=== PATIENT | male | born 1945 | race African-American/Black ===

== ENCOUNTER 2016-09-22 17:29 | Inpatient (IN) | payer OTHER ==
[2016-09-22 17:54] VITALS: BMI 28.8
[2016-09-22] MEDS ORDERED: MAGNESIUM SULF 50% (8.12 MEQ/2 ML-1 GM VIAL) IVPB ONE (18:19)
[2016-09-22] MEDS ORDERED: ALBUTEROL SO4 2.5/IPRATROPIUM 0.5 INH SOL 3 ML VIAL.NEB. NEB ONE ×2 (18:19→18:36)
[2016-09-22] MEDS ORDERED: methylPREDNISolone NA SUCC 125 MG/2 ML VIAL IVPB ONE (18:19)
[2016-09-22 18:20] LABS: MCH 31.5 pg (25.7-33.7); MCHC 32.5 g/dl (32.0-35.9); MEAN CELL VOLUME 96.8 fl (80-96); MEAN PLT VOLUME 10.3 fl (7.5-11.1); RDW 14.2 % (11.9-15.9); WHITE BLOOD COUNT 4.8 K/mm3 (4.0-10.0)
[2016-09-22] MEDS ORDERED: methylPREDNISolone NA SUCC 125 MG/2 ML VIAL ONE (18:24)
[2016-09-22] MEDS ORDERED: MAGNESIUM SULF 50% (8.12 MEQ/2 ML-1 GM VIAL) ONE (18:24)
--- NOTE | 2016-09-22 18:27 | PDOC ---
History of Present Illness <Wilton Mooney - Last Filed: 09/22/16 18:56> - General History Source: Patient Exam Limitations: No Limitations - History of Present Illness Initial Comments: 09/22/16 18:55 The patient is a 71 year old male, resident of [facility], with a significant past medical history of afib (on Coumadin), CHF, COPD (on home O2 2- 3 L), HTN, HLD, pulmonary valve disorder, CVA, seizure, GI bleed, DVT, and anemia, who presents to the ER with gradually worsening shortness of breath, wheezing, and productive cough for several days. Patient says he has been coughing and bringing up yellow phlegm. He says he has noticed he recently needed to increase his oxygen dosage to higher than 2-3L. Patient had a Chest XR done on 09/21/16 which documented that he has a moderate enlarged heart, possible pachy bilateral perihilar increased markings. Patient reports he was diagnosed with pneumonia at his halfway and has been taking Azithromycin for the infection. Patient reports also noticing bilateral foot edema. Denies nausea, vomiting, abdominal pain Denies chest pain, heart palpitation Denies fever PCP: Dr. Hein <Steph Espinal - Last Filed: 09/22/16 19:03> <Teresa Yao - Last Filed: 09/23/16 00:42> - General Chief Complaint: Respiratory Distress Stated Complaint: RESPIRATORY DISTRESS Time Seen by Provider: 09/22/16 17:52 Past History - Past Medical History Anemia: Yes Asthma: No Cancer: No Cardiac Disorders: Yes (h/o dvt; pulmonary valve disorder) CVA: Yes (04, 05 and 2 in 06 with residual- weakness right side) COPD: Yes CHF: Yes DVT: Yes Dementia: No Diabetes: Yes GI Disorders: Yes (gi bleed, GERD) Disorders: No HTN: Yes Hypercholesterolemia: Yes Liver Disease: No Suicide Attempt (Hx): No Seizures: Yes Thyroid Disease: No - Surgical History Abdominal Surgery: No Appendectomy: No Cardiac Surgery: No Cholecystectomy: No Lung Surgery: No Neurologic Surgery: No Orthopedic Surgery: Yes (LT ANKLE SURGERY) - Immunization History Td Vaccination: Yes TDAP Vaccination: Yes Immunization Up to Date: Yes - Psycho/Social/Smoking Cessation Hx Anxiety: No Suicidal Ideation: No Smoking Status: No Smoking History: Former smoker Years of Tobacco Use: 30 Have you smoked in the past 12 months: No Number of Cigarettes Smoked Daily: 0 If you are a former smoker, when did you quit?: 2002 Information on smoking cessation initiated: No Hx Alcohol Use: No Drug/Substance Use Hx: No Substance Use Type: None Hx Substance Use Treatment: No <Wilton Mooney - Last Filed: 09/22/16 18:56> <Steph Espinal - Last Filed: 09/22/16 19:03> <Teresa Yao - Last Filed: 09/23/16 00:42> - Past Medical History Allergies/Adverse Reactions: Allergies Allergy/AdvReac Type Severity Reaction Status Date / Time No Known Allergies Allergy Verified 09/22/16 17:54 Home Medications: Ambulatory Orders Acetaminophen [Tylenol] 650 mg PO Q8H PRN 07/13/14 Atorvastatin Ca [Lipitor] 40 mg PO HS 07/13/14 Levetiracetam [Keppra -] 1,000 mg PO BID 07/13/14 Polyethylene Glycol 3350 [Miralax 119 gm Btl -] 17 gm PO HS 07/13/14 Sotalol HCl [Sotalol] 80 mg PO BID 07/13/14 Aclidinium [place] [Tudorza -] 1 inh PO BID 07/20/15 Docusate Sodium [Colace -] 300 mg PO HS 07/20/15 Tamsulosin HCl [Flomax -] 0.4 mg PO DAILY@0830 cap.er.24h 07/26/15 Albuterol 0.083% Nebulizer Lyubov [Ventolin 0.083% Nebulizer Soln -] 1 neb NEB Q4H 08/17/15 Flovent Diskus 44 mcg IH Q12H 08/17/15 Oxycodone HCl 5 mg PO Q8H PRN 08/17/15 Albuterol 0.083% Nebulizer Lyubov [Ventolin 0.083% Nebulizer Soln -] 1 amp NEB QIDR amp 08/20/15 Aspirin Coated [Ecotrin -] 81 mg PO DAILY tablet.ec 08/20/15 Furosemide [Lasix -] 40 mg PO DAILY tablet 08/20/15 Loratadine [Claritin] 10 mg PO DAILY 09/22/16 Warfarin Na [Coumadin -] 7.5 mg PO DAILY@1800 06/17/17 Review of Systems - Review of Systems Able to Perform ROS?: Yes Comments:: 09/22/16 18:55 CONSTITUTIONAL: No reported: Fever, Chills, Diaphoresis, Generalized Weakness, Malaise, Loss of Appetite HEENT: No reported: Rhinorrhea, Nasal Congestion, Throat Pain, Throat Swelling, Difficulty Swallowing, Mouth Swelling, Ear Pain, Eye Pain, Visual Changes CARDIOVASCULAR: No reported: Chest Pain, Syncope, Palpitations, Irregular Heart Rate, Lightheadedness, Peripheral Edema RESPIRATORY: Reported: (+) cough, (+) shortness of breath No reported: SOB with Exertion, Stridor, Hemoptysis GASTROINTESTINAL: No reported: Abdominal pain, Abdominal Distension, Nausea, Vomiting, Diarrhea, Constipation, Melena, Hematochezia GENITOURINARY: No reported: Dysuria, Frequency, Urgency, Hesitancy, Flank Pain, Genital Pain MUSCULOSKELETAL: No reported: Myalgia, Arthralgia, Joint Swelling, Back pain, Neck Pain SKIN: No reported: Rash, Itching, Pallor HEMEATOLOGIC/IMMUNOLOGIC: No reported: Easy Bleeding, Easy Bruising, Lymphadenopathy, Frequent infections ENDOCRINE: No reported: Unexplained Weight Gain, Unexplained Weight Loss, Heat Intolerance , Cold Intolerance NEUROLOGIC: No reported: Headache, Focal Weakness, Paresthesias, Vertigo, Lightheadedness, Unsteady Gait, Seizure, Mental Status Changes, Incontinence PSYCHIATRIC: No reported: Anxiety, Depression <Uts,Steph - Last Filed: 09/22/16 19:03> *Physical Exam - Vital Signs Last Vital Signs Temp Pulse Resp BP Pulse Ox 98.4 F 65 28 H 158/90 85 L 09/22/16 17:50 09/22/16 17:50 09/22/16 17:50 09/22/16 17:50 09/22/16 17:50 <Jesica,Wilton - Last Filed: 09/22/16 18:56> - Vital Signs Last Vital Signs Temp Pulse Resp BP Pulse Ox 98.4 F 74 28 H 158/90 97 09/22/16 17:50 09/22/16 18:44 09/22/16 17:50 09/22/16 17:50 09/22/16 18:44 - Physical Exam Comments: 09/22/16 18:55 GENERAL: The patient is awake, alert, tachypenic HEAD: Normocephalic, atraumatic. EYES: extraocular movements intact, sclera anicteric, conjunctiva clear. ENT: Normal voice, Moist mucous membranes. NECK: Normal range of motion, supple LUNGS: Diminished breath sounds bilaterally, wheezing. no rales appreciated, some increased work of breathing HEART: Regular rate and rhythm, without murmur, rub or gallop. ABDOMEN: Soft, nontender, normoactive bowel sounds. No guarding, no rebound.No CVA tenderness EXTREMITIES: Normal range of motion, trace edema. NEUROLOGICAL: Hemiparesis of right arm and leg. Normal speech. PSYCH: Normal mood, normal affect. SKIN: Warm, Dry, normal turgor <UtsSteph - Last Filed: 09/22/16 19:03> - Vital Signs Last Vital Signs Temp Pulse Resp BP Pulse Ox 98.4 F 58 L 26 H 126/80 97 09/22/16 17:50 09/22/16 19:19 09/22/16 19:19 09/22/16 19:19 09/22/16 18:44 <Teresa Yao - Last Filed: 09/23/16 00:42> Heart Score/ECG Review - ECG Impressions Comment:: 09/22/16 18:41 Twelve-lead EKG was performed and reviewed by me. sinus rhythm bigeminy rbbb pvcs present twi in lateral leads, present in prior ekg <Wilton Mooney - Last Filed: 09/22/16 18:56> ED Treatment Course - LABORATORY CBC & Chemistry Diagram: 09/22/16 17:58 - RADIOLOGY Radiology Studies Ordered: Category Date Time Status CHEST X-RAY PORTABLE* [RAD] Stat Radiology 09/22/16 17:54 Ordered <Wilton Mooney - Last Filed: 09/22/16 18:56> - LABORATORY CBC & Chemistry Diagram: 09/22/16 17:58 - ADDITIONAL ORDERS Additional order review: Laboratory Results 09/22/16 17:58 Urine Color Ltyellow Urine Appearance Clear Urine pH 6.0 Urine Protein 1+ H Urine Glucose (UA) Negative Urine Ketones Negative Urine Blood 2+ H Urine Nitrite Negative Urine Bilirubin Negative Urine Urobilinogen Negative Ur Leukocyte Esterase Negative 09/22/16 17:58 RBC 4.27 MCV 96.8 H MCHC 32.5 RDW 14.2 D MPV 10.3 Neutrophils % Y Lymphocytes % Y - Medications Given in the ED: ED Medications Discontinued Medications Generic Name Dose Route Start Last Admin Trade Name Pj PRN Reason Stop Dose Admin Albuterol/Ipratropium 1 amp 09/22/16 18:19 09/22/16 18:38 Duoneb - NEB 09/22/16 18:20 1 amp ONCE ONE Administration Magnesium Sulfate 2 gm 09/22/16 18:19 09/22/16 18:34 Magnesium Sulfate IVPB 09/22/16 18:20 2 gm ONCE ONE Administration Methylprednisolone Sodium Succinate 125 mg 09/22/16 18:19 09/22/16 18:34 Solu-Medrol - IVPB 09/22/16 18:20 125 mg ONCE ONE Administration <Uts,Steph - Last Filed: 09/22/16 19:03> - LABORATORY CBC & Chemistry Diagram: 09/22/16 17:58 09/22/16 20:40 - ADDITIONAL ORDERS Additional order review: Laboratory Results 09/22/16 09/22/16 09/22/16 20:40 20:40 17:58 WBC RBC Hgb Hct MCV MCHC RDW Plt Count MPV Neutrophils % Lymphocytes % Monocytes % Eosinophils % Platelet Estimate Platelet Comment INR Sodium Cancelled Potassium Cancelled Chloride Cancelled Carbon Dioxide Cancelled Anion Gap Cancelled BUN Cancelled Creatinine Cancelled Creat Clearance w eGFR Cancelled Random Glucose Cancelled Lactic Acid 1.3 Calcium Cancelled Total Bilirubin Cancelled AST Cancelled ALT Cancelled Alkaline Phosphatase Cancelled Creatine Kinase Cancelled Troponin I Cancelled B-Natriuretic Peptide Cancelled Total Protein Cancelled Albumin Cancelled Urine Color Ltyellow Urine Appearance Clear Urine pH 6.0 Urine Protein 1+ H Urine Glucose (UA) Negative Urine Ketones Negative Urine Blood 2+ H Urine Nitrite Negative Urine Bilirubin Negative Urine Urobilinogen Negative Ur Leukocyte Esterase Negative Urine RBC 18 Urine WBC <1 Ur Epithelial Cells Rare Hyaline Casts 3 Urine Mucus Rare 09/22/16 09/22/16 17:58 17:58 WBC 4.8 D RBC 4.27 Hgb 13.4 Hct 41.3 MCV 96.8 H MCHC 32.5 RDW 14.2 D Plt Count 125 L D MPV 10.3 Neutrophils % 50.0 D Lymphocytes % 26.0 D Monocytes % 21.0 H D Eosinophils % 3.0 D Platelet Estimate Decreased Platelet Comment No clumping noted INR 2.35 H Sodium Potassium Chloride Carbon Dioxide Anion Gap BUN Creatinine Creat Clearance w eGFR Random Glucose Lactic Acid Calcium Total Bilirubin AST ALT Alkaline Phosphatase Creatine Kinase Troponin I B-Natriuretic Peptide Total Protein Albumin Urine Color Urine Appearance Urine pH Urine Protein Urine Glucose (UA) Urine Ketones Urine Blood Urine Nitrite Urine Bilirubin Urine Urobilinogen Ur Leukocyte Esterase Urine RBC Urine WBC Ur Epithelial Cells Hyaline Casts Urine Mucus 09/22/16 17:58 RBC 4.27 MCV 96.8 H MCHC 32.5 RDW 14.2 D MPV 10.3 Neutrophils % 50.0 D Lymphocytes % 26.0 D Monocytes % 21.0 H D Eosinophils % 3.0 D - RADIOLOGY Radiology Studies Ordered: Category Date Time Status CHEST CT WITHOUT CONTRAST [CT] Stat CT Scan 09/22/16 21:37 Ordered - Medications Given in the ED: ED Medications Discontinued Medications Generic Name Dose Route Start Last Admin Trade Name Freq PRN Reason Stop Dose Admin Albuterol/Ipratropium 1 amp 09/22/16 18:19 09/22/16 18:38 Duoneb - NEB 09/22/16 18:20 1 amp ONCE ONE Administration Furosemide 40 mg 09/22/16 20:29 09/22/16 20:52 Lasix Injection - IVPUSH 09/22/16 20:30 40 mg ONCE ONE Administration Magnesium Sulfate 2 gm 09/22/16 18:19 09/22/16 18:34 Magnesium Sulfate IVPB 09/22/16 18:20 2 gm ONCE ONE Administration Methylprednisolone Sodium Succinate 125 mg 09/22/16 18:19 09/22/16 18:34 Solu-Medrol - IVPB 09/22/16 18:20 125 mg ONCE ONE Administration <Teresa Yao - Last Filed: 09/23/16 00:42> Medical Decision Making - Medical Decision Making 09/22/16 18:20 71y M hx of COPD, CHF, afib on coumadin, CAD, gerd, cva, hl, presenst for evaluation of sob, recent dx of pna and on azithromycin from [facility], pt denies f, but notes he has had increased sob/ productive cough for several days. also with hypoxia and increased supplemental o2 demand. on exam pt has b/ l wheezing and deminished breath sounds with some tachypnea and increased WOB. suspect copd exacerbation, possible pna will ck labs will give duonebs, steroids, mag will put on bipap will obtain xray likely admission 09/22/16 18:56 no leukocytosis on his cbc cmp/chemistry pending cxr shows no acute process will sign pt out to dr. yao to fu with labs and disposition the patient A portion of this note was documented by scribe services under my direction. I have reviewed the details of the note, within reason, and agree with the documentation with the following case summary and management plan written by me <Wilton Mooney - Last Filed: 09/22/16 18:56> - Medical Decision Making 09/22/16 21:40 I received patient on signout. He is comfortable on BiPAP. at bedside tells me that pt sometimes gets R chest pain when he has a pneumonia or aspiration pneumonia. Pt has no WBC count and no fever. tells me that he was sent from [place] to r/o pulmonary embolism on CTA. I cannot send pt for CTA without a chemistry panel (BUN/Cr). He has had 2 hemolyzed specimens thus far. I spoke to Dr. Hein's (PMD's) nurse Practitioner Diap, who tells me that I ought to order a dry CT scan of the chest to r/o pathology. INR of patient is therapeutic, and he has known blood clot in his leg, which is being treated. For now she wants a dry CT scan until a chemistry is reported. She will admit the patient to med surg. 09/23/16 00:42 Patient Name: Yfn Vasquez This is a preliminary report by imaging stonemason helper Exam: Noncontrast CT chest Images: 457 Clinical indication: Shortness of breath. COPD Findings: Relative lucency in the left upper lobe is noted which may indicate air-trapping are emphysematous change. Subsegmental dependent atelectatic changes are noted bilaterally. No other infiltrates, nodules or masses are seen. There is no axillary, mediastinal or hilar adenopathy. The heart is within limits for size. The pulmonary artery is ectatic measuring 5.5 cm in diameter. The thoracic aorta and proximal great vessels are moderately atherosclerotic. The heart is enlarged. There is a small pericardial effusion. The trachea and central bronchi are patent. The visualized upper abdominal viscera are unremarkable. Cholelithiasis noted. Impression: Relative lucency noted in the left upper lobe may represent emphysematous change. Markedly enlarged pulmonary artery is indicative of pulmonary arterial hypertension. THIS DOCUMENT HAS BEEN ELECTRONICALLY SIGNED <Teresa Yao - Last Filed: 09/23/16 00:42> *DC/Admit/Observation/Transfer <Wilton Mooney - Last Filed: 09/22/16 18:56> - Attestations Scribe Attestion: 09/22/16 18:55 Documentation prepared by Steph Espinal, acting as district medical examiner for Wilton Mooney MD. <Steph Espinal - Last Filed: 09/22/16 19:03> - Discharge Dispostion Admit: Yes <Teresa Yao - Last Filed: 09/23/16 00:42> Diagnosis at time of Disposition: CHF (congestive heart failure), CVA (cerebral infarction), COPD (chronic obstructive pulmonary disease), DVT (deep venous thrombosis), Chest pain, HTN ( hypertension), Atrial flutter - Referrals
[2016-09-22 18:38] LABS: URINE APPEARANCE CLEAR; URINE BILIRUBIN NEGATIVE (NEGATIVE); URINE COLOR LTYELLOW; URINE GLUCOSE (UA) NEGATIVE (NEGATIVE); URINE KETONE NEGATIVE (NEGATIVE); URINE LEUK ESTERASE NEGATIVE (NEGATIVE); URINE NITRITE NEGATIVE (NEGATIVE); URINE UROBILINOGEN NEGATIVE E.U./dl (0.2-1.0)
[2016-09-22 18:43] LABS: URINE BLOOD 2+ (NEGATIVE); URINE PROTEIN 1+ (NEGATIVE)
[2016-09-22 18:44] LABS: URINE HYALINE CAST 3 /lpf; URINE MUCUS RARE; URINE RBC 18 /hpf (0-3); URINE WBC <1 /hpf (3-5)
[2016-09-22 19:00] LABS: PLATELET COUNT 125 K/MM3 (134-434); PLATELET ESTIMATE DECREASED (NORMAL)
[2016-09-22] MEDS ORDERED: FUROSEMIDE 40 MG/4 ML INJECTABLE VIAL IVPUSH ONE (20:29)
[2016-09-22] MEDS ORDERED: FUROSEMIDE 40 MG/4 ML INJECTABLE VIAL ONE (20:47)
[2016-09-22 21:08] LABS: INR 2.35 (0.82-1.09); PROTHROMBIN TIME (PATIENT) 26.3 SEC (9.98-11.88)
[2016-09-22 23:25] LABS: ARTERIAL BLD GAS O2 SATURATION 90.6 % (90-98.9); ARTERIAL BLOOD GAS HCO3 36.9 meq/L (22-26); ARTERIAL BLOOD GAS PO2 63.1 mmHg (70-100); ARTERIAL BLOOD GAS pH 7.35 (7.35-7.45)
[2016-09-22 23:26] LABS: METHEMOGLOBIN 0.7 % (0.4-1.5)
[2016-09-22 23:27] LABS: ALLENS TEST POSITIVE; ART PUNCT SITE LEFT RADIAL; LPM/O2% 4.0LPM; PT. ON O2? YES; TYPE OF O2 NASAL CANNULA
[2016-09-23 09:03] LABS: TROPONIN I < 0.02 ng/ml (0.00-0.05)
[2016-09-23 09:19] LABS: ALBUMIN 3.5 g/dl (3.4-5.0); ALK PHOS 120 U/L (45-117); ANION GAP 8 (8-16); BILIRUBIN,TOTAL 0.7 mg/dL (0.2-1.0); CALCIUM 9.8 mg/dL (8.5-10.1); CO2 37 mmol/L (21-32); CREATININE 1.3 mg/dL (0.7-1.3); GLUCOSE,RANDOM 118 mg/dL (74-106); SGOT/AST 39 U/L (15-37); SGPT/ALT 34 U/L (12-78); TOT PROT 8.1 g/dl (6.4-8.2)
--- NOTE | 2016-09-23 10:14 | EKG ---
Test Reason : Blood Pressure : / mmHG Vent. Rate : 068 BPM Atrial Rate : 068 BPM P-R Int : 000 ms QRS Dur : 144 ms QT Int : 432 ms P-R-T Axes : 000 000 018 degrees QTc Int : 459 ms NORMAL SINUS RHYTHM WITH FREQUENT PREMATURE ATRIAL COMPLEXES RIGHT BUNDLE BRANCH BLOCK T WAVE ABNORMALITY, CONSIDER LATERAL ISCHEMIA ABNORMAL ECG Confirmed by MEET TRACY MD ([id number]) on 09/23/2016 10:14:31 AM Referred By: Confirmed By:MEET TRACY MD
[2016-09-23] MEDS ORDERED: levETIRAcetam 500 MG TABLET (FP) PO ONE ×2 (13:33→14:00)
--- NOTE | 2016-09-23 15:02 | PN ---
Progress Note (short form) - Note Progress Note: PULMONARY CONSULTATION DICTATED 09/23/16 IMP ACUTE ON CHRONIC HYPOXEMIC/HYPERCAPNEIC RESPIRATORY FAILURE END STAGE COPD WITH ACUTE EXACERBATION LIKELY URI AFIB PULMONARY NODULES CHF S/P CVA HTN H/O DVT PLAN IV STEROIDS INHALED BRONCHODILATORS NASAL O2 BIPAP PRN SPUTUM C+S MONITOR LYTES,INR F/U ABGS ANTICOAGULATION CONSERVATIVE MANAGEMENT PULMONARY NODULES DR WHITING Problem List - Problems (1) CHF (congestive heart failure) Code(s): I50.9 - HEART FAILURE, UNSPECIFIED Qualifiers: (2) COPD (chronic obstructive pulmonary disease) Code(s): J44.9 - CHRONIC OBSTRUCTIVE PULMONARY DISEASE, UNSPECIFIED (3) DVT (deep venous thrombosis) Code(s): I82.409 - ACUTE EMBOLISM AND THOMBOS UNSP DEEP VN UNSP LOWER EXTREMITY (4) HTN (hypertension) Code(s): I10 - ESSENTIAL (PRIMARY) HYPERTENSION (5) BPH (benign prostatic hyperplasia) Code(s): N40.0 - BENIGN PROSTATIC HYPERPLASIA WITHOUT LOWER URINRY TRACT SYMP (6) CAD (coronary artery disease) Code(s): I25.10 - ATHSCL HEART DISEASE OF [place] CORONARY ARTERY W/O ANG PCTRS Qualifiers: (7) Hyperlipidemia Code(s): E78.5 - HYPERLIPIDEMIA, UNSPECIFIED (8) Pulmonary hypertension Code(s): I27.2 - OTHER SECONDARY PULMONARY HYPERTENSION (9) Acute on chronic respiratory failure with hypoxia and hypercapnia Code(s): J96.21 - ACUTE AND CHRONIC RESPIRATORY FAILURE WITH HYPOXIA J96.22 - ACUTE AND CHRONIC RESPIRATORY FAILURE WITH HYPERCAPNIA (10) Cerebrovascular disease Code(s): I67.9 - CEREBROVASCULAR DISEASE, UNSPECIFIED (11) Diabetes mellitus Code(s): E11.9 - TYPE 2 DIABETES MELLITUS WITHOUT COMPLICATIONS Qualifiers: Diabetes mellitus type: type 2 Diabetes mellitus complication status: without complication (12) Afib Code(s): I48.91 - UNSPECIFIED ATRIAL FIBRILLATION (13) H/O deep venous thrombosis Code(s): Z86.718 - PERSONAL HISTORY OF OTHER VENOUS THROMBOSIS AND EMBOLISM (14) Lung nodule Code(s): R91.1 - SOLITARY PULMONARY NODULE
[2016-09-23] MEDS ORDERED: methylPREDNISolone NA SUCC 40 MG/1 ML VIAL ONE (15:38)
[2016-09-23] MEDS: methylPREDNISolone NA SUCC 40 MG/1 ML VIAL IVPB SCH ×2 (15:46→22:44)
--- NOTE | 2016-09-23 16:18 | CONS ---
DATE OF CONSULTATION: 09/23/2016 REFERRING PHYSICIAN: Kimani Hein MD The patient is a 71-year-old black male, well known to me from previous hospitalization, resident of [facility], past medical of end-stage COPD, maintained on home O2 2 to 3 L, history of chronic hypercapnic and hypoxemic respiratory failure, atrial fibrillation, on Coumadin, hyperlipidemia, hypertension, CHF, pulmonary vascular disease, pulmonary valve disorder, status post CVA, right minda, seizure disorder, GI bleed, DVT, anemia, admitted to [facility] on September 22 with complaint of increasing shortness of breath and dyspnea on exertion, wheezing, cough productive of dark sputum. Patient also complains of having some chills. He denied any fevers. Denies hemoptysis. Apparently at the intermediate he noticed that he has been requiring higher levels of oxygen to maintain his O2 sat. Patient presented to the emergency room with above. Patient had a chest x-ray performed apparently, which revealed cardiomegaly with possible bilateral hilar increased markings. He was placed on Zithromax at the intermediate. Despite these measures, his symptoms worsened, at which time he presented to the emergency room. In the ER, he was noted to be in acute on chronic hypercapnic respiratory failure with a pCO2 of 68 and a pH of 7.35. He was placed on BiPAP. The patient has a history of tobacco use for many years, quit a few years ago. 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 There is no history of recent travel. He denies any chest pains or palpitations. Past medical history again includes advanced COPD, on home O2, chronic hypercapnic hypoxemic respiratory failure, hypertension, atrial fibrillation, on Coumadin, status post CVA with right minda, history of DVT, CHF, hyperlipidemia, pulmonary valve disorder, and seizure disorder. REVIEW OF SYSTEMS: Positive dyspnea, positive orthopnea. No chest pain. Positive cough. Positive sputum. No fever. Positive chills. No hemoptysis. No chest pain, no palpitations. No abdominal discomfort. No lower extremity edema. Current medications prior to admission include Tylenol, Lipitor, Keppra, MiraLax, sotalol, Tudorza, Colace, Flomax, albuterol, Flovent Diskus, oxycodone, albuterol nebulizer, enteric coated aspirin, Lasix 40 daily, Claritin, and Coumadin 7.5 daily. PHYSICAL EXAMINATION: General: The patient is an elderly black male, well developed, well nourished, awake, alert, mild distress, mildly dyspneic. Vital Signs: He is currently afebrile. Blood pressure is 132/79. Respiratory rate 22. O2 saturation is 90% on 4 L. HEENT: Normocephalic, atraumatic. Neck: Supple. Heart: Irregularly irregular. Normal S1, S2. Chest: Few scattered bilateral wheezes. Abdomen: Soft. Bowel sounds positive. Extremities: No cyanosis, edema. LABORATORY DATA: Blood gas: pH 7.35, pCO2 of 68, a pO2 of 63, a bicarbonate of 36, and a saturation of 90.6. WBC is 4.8, hemoglobin 13.4, hematocrit 41.3, with a platelet count of 125,000. INR is 2.35. Chemistries: BUN 22, creatinine 1.3. Chest x-ray: There is known cardiomegaly but no acute infiltrates or effusions. IMPRESSION: 1. Acute on chronic hypercapnic hypoxemic respiratory failure secondary to decompensated chronic obstructive pulmonary disease. 2. End-stage chronic obstructive pulmonary disease with chronic hypercapnic respiratory failure and chronic hypoxemia, on O2. 3. Congestive heart failure. 4. Likely upper respiratory infection. 5. Atrial fibrillation, on Coumadin. 6. Status post cerebrovascular accident with right hemiparesis. 7. Hypertension. 8. History of deep vein thrombosis. PLAN: Supplemental O2 alternating with BiPAP, inhaled bronchodilators, IV steroids, obtain followup arterial blood gases, antibiotics, sputum for C&S. Reviewed CAT scan. Thank you. I will follow closely with you. BAY WHITING M.D. [id number]
[2016-09-23] MEDS ORDERED: oxyCODONE HCL 5 MG TABLET PO PRN (16:19)
[2016-09-23] MEDS ORDERED: ACETAMINOPHEN 325 MG TABLET (FP) PO PRN (16:19)
[2016-09-23] MEDS ORDERED: FLOVENT 44 MCG IH SCH (16:30)
[2016-09-23] MEDS ORDERED: FUROSEMIDE 40 MG TABLET (FP) ONE (16:45)
[2016-09-23] MEDS: FUROSEMIDE 40 MG TABLET (FP) PO SCH (16:54)
[2016-09-23] MEDS ORDERED: ALBUTEROL SO4 0.083% IH SOL 2.5 MG/3 ML VIAL.NEB. NEB ONE (18:12)
[2016-09-23] MEDS ORDERED: WARFARIN NA 5 MG TABLET (UD) ONE (18:12)
[2016-09-23] MEDS ORDERED: WARFARIN NA 1 MG TABLET (FP) ONE (18:12)
[2016-09-23] MEDS ORDERED: ALBUTEROL SO4 2.5/IPRATROPIUM 0.5 INH SOL 3 ML VIAL.NEB. NEB ONE (18:13)
[2016-09-23] MEDS: WARFARIN NA 7.5 MG TABLET (FP) PO SCH (18:24)
[2016-09-23] MEDS: ALBUTEROL SO4 2.5/IPRATROPIUM 0.5 INH SOL 3 ML VIAL.NEB. NEB SCH ×2 (18:24→23:09)
[2016-09-23] MEDS: ALBUTEROL SO4 0.083% IH SOL 2.5 MG/3 ML VIAL.NEB. NEB SCH ×2 (18:24→23:09)
--- NOTE | 2016-09-23 20:42 | HP ---
Admitting History and Physical - Primary Care Physician PCP: Kimani Hein - Admission Chief Complaint: SOB History of Present Illness: The patient is a 71 year old male, resident of [facility], with a significant past medical history of afib (on Coumadin), CHF, COPD (on home O2 2- 3 L), HTN, HLD, pulmonary valve disorder, CVA, seizure, GI bleed, DVT, and anemia, who presents to the ER with gradually worsening shortness of breath, wheezing, and productive cough for several days. Patient says he has been coughing and bringing up yellow phlegm. He says he has noticed he recently needed to increase his oxygen dosage to higher than 2-3L. Patient had a Chest XR done on 09/21/16 which documented that he has a moderate enlarged heart, possible pachy bilateral perihilar increased markings. Patient reports he was diagnosed with pneumonia at his [facility] and has been taking Azithromycin for the infection. Patient reports also noticing bilateral foot edema. 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: CVA, Seizure Cardiovascular: Yes: CAD, CHF, HTN, Hyperlipdemia, Pulmonary Hypertension Pulmonary: Yes: COPD, Other (CB pulmonary nodule on CT 03/28/14) Gastrointestinal: Yes: GERD, GI Bleed - Advance Directives Advance Directives: Yes: DNR - Smoking History Smoking history: Former smoker Have you smoked in the past 12 months: No Aproximately how many cigarettes per day: 0 If you are a former smoker, when did you quit?: 2002 - Alcohol/Substance Use Hx Alcohol Use: No - Social History History of Recent Travel: No Home Medications - Allergies Allergies/Adverse Reactions: Allergies Allergy/AdvReac Type Severity Reaction Status Date / Time No Known Allergies Allergy Verified 09/22/16 17:54 - Home Medications Home Medications: Ambulatory Orders Acetaminophen [Tylenol] 650 mg PO Q8H PRN 07/13/14 Atorvastatin Ca [Lipitor] 40 mg PO HS 07/13/14 Levetiracetam [Keppra -] 1,000 mg PO BID 07/13/14 Polyethylene Glycol 3350 [Miralax 119 gm Btl -] 17 gm PO HS 07/13/14 Sotalol HCl [Sotalol] 80 mg PO BID 07/13/14 Aclidinium [place] [Tudorza -] 1 inh PO BID 07/20/15 Docusate Sodium [Colace -] 300 mg PO HS 07/20/15 Tamsulosin HCl [Flomax -] 0.4 mg PO DAILY@0830 cap.er.24h 07/26/15 Albuterol 0.083% Nebulizer Lyubov [Ventolin 0.083% Nebulizer Soln -] 1 neb NEB Q4H 08/17/15 Flovent Diskus 44 mcg IH Q12H 08/17/15 Oxycodone HCl 5 mg PO Q8H PRN 08/17/15 Albuterol 0.083% Nebulizer Lyubov [Ventolin 0.083% Nebulizer Soln -] 1 amp NEB QIDR amp 08/20/15 Aspirin Coated [Ecotrin -] 81 mg PO DAILY tablet.ec 08/20/15 Furosemide [Lasix -] 40 mg PO DAILY tablet 08/20/15 Loratadine [Claritin] 10 mg PO DAILY 09/22/16 Warfarin Na [Coumadin -] 7.5 mg PO DAILY@1800 09/22/16 Review of Systems - Review of Systems Constitutional: reports: No Symptoms Eyes: reports: No Symptoms HENT: reports: No Symptoms Neck: reports: No Symptoms Cardiovascular: reports: No Symptoms Respiratory: reports: SOB Gastrointestinal: reports: No Symptoms Genitourinary: reports: No Symptoms Breasts: reports: No Symptoms Reported Musculoskeletal: reports: No Symptoms Integumentary: reports: No Symptoms Neurological: reports: No Symptoms Endocrine: reports: No Symptoms Hematology/Lymphatic: reports: No Symptoms Psychiatric: reports: No Symptoms Physical Examination Vital Signs: Vital Signs Temperature 97.6 F 09/23/16 02:38 Pulse Rate 62 09/23/16 18:25 Respiratory Rate 20 09/23/16 18:25 Blood Pressure 163/89 09/23/16 18:25 O2 Sat by Pulse Oximetry (%) 100 09/23/16 20:20 Constitutional: Yes: Well Nourished, No Distress, Calm Cardiovascular: Yes: Pulse Irregular Respiratory: Yes: Regular Gastrointestinal: Yes: Normal Bowel Sounds Musculoskeletal: Yes: WNL Extremities: Yes: WNL Problem List - Problems (1) Acute on chronic respiratory failure with hypoxia and hypercapnia Code(s): J96.21 - ACUTE AND CHRONIC RESPIRATORY FAILURE WITH HYPOXIA J96.22 - ACUTE AND CHRONIC RESPIRATORY FAILURE WITH HYPERCAPNIA (2) Afib Code(s): I48.91 - UNSPECIFIED ATRIAL FIBRILLATION (3) CHF (congestive heart failure) Code(s): I50.9 - HEART FAILURE, UNSPECIFIED Qualifiers: (4) COPD (chronic obstructive pulmonary disease) Code(s): J44.9 - CHRONIC OBSTRUCTIVE PULMONARY DISEASE, UNSPECIFIED Assessment/Plan IV STEROIDS, NEB TX PULMONARY CONSULT IV FUROSEMIDE ADMIT TO MED SURG
[2016-09-23] MEDS: SOTALOL HCL 80 MG TABLET (FP) PO SCH (22:45)
[2016-09-23] MEDS: levETIRAcetam 500 MG TABLET (FP) PO SCH (22:45)
[2016-09-23] MEDS: DOCUSATE SODIUM 100 MG CAPSULE (FP) PO SCH (22:45)
[2016-09-23] MEDS: POLYETHYLENE GLYCOL 3350 119 GM BTL PO SCH (22:46)
[2016-09-23] MEDS: ATORVASTATIN CA 20 MG TABLET (FP) PO SCH (22:46)
[2016-09-24] MEDS: MOMETASONE FUROATE 220 MCG/IH INHALER IH SCH ×2 (03:20→23:03)
[2016-09-24] MEDS: ACLIDINIUM BROMIDE 400 MCG/INH AERO.POWD IH SCH ×3 (03:21→22:11)
[2016-09-24] MEDS: methylPREDNISolone NA SUCC 40 MG/1 ML VIAL IVPB SCH ×4 (03:24→22:06)
[2016-09-24] MEDS: ALBUTEROL SO4 2.5/IPRATROPIUM 0.5 INH SOL 3 ML VIAL.NEB. NEB SCH ×3 (06:54→16:50)
[2016-09-24] MEDS: ALBUTEROL SO4 0.083% IH SOL 2.5 MG/3 ML VIAL.NEB. NEB SCH ×3 (06:54→16:50)
[2016-09-24 07:51] LABS: BASOPHIL 0.2 % (0-2.0); MCH 31.5 pg (25.7-33.7); MCHC 32.8 g/dl (32.0-35.9); MEAN CELL VOLUME 95.8 fl (80-96); MEAN PLT VOLUME 10.2 fl (7.5-11.1); NEUTROPHILS 75.3 % (42.8-82.8); PLATELET COUNT 101 K/MM3 (134-434); RDW 14.7 % (11.9-15.9); WHITE BLOOD COUNT 3.7 K/mm3 (4.0-10.0)
--- NOTE | 2016-09-24 07:54 | PN ---
Progress Note, Physician - Current Medication List Current Medications: Active Medications Acetaminophen (Tylenol -) 650 mg PO Q8H PRN PRN Reason: PAIN Aclidinium [place] (Tudorza -) 1 puff IH BID [facility] Last Admin: 09/24/16 03:21 Dose: Not Given Albuterol Sulfate (Ventolin 0.083% Nebulizer Soln -) 1 amp NEB Q4H PRN PRN Reason: SHORT OF BREATH/WHEEZING Albuterol Sulfate (Ventolin 0.083% Nebulizer Soln -) 1 amp NEB QIDR [facility] Last Admin: 09/24/16 06:54 Dose: Not Given Albuterol/Ipratropium (Duoneb -) 1 amp NEB QIDR [facility] Last Admin: 09/24/16 06:54 Dose: 1 amp Aspirin (Ecotrin -) 81 mg PO DAILY [facility] Atorvastatin Calcium (Lipitor -) 40 mg PO [facility] Last Admin: 09/23/16 22:46 Dose: 40 mg Docusate Sodium (Colace -) 300 mg PO [facility] Last Admin: 09/23/16 22:45 Dose: 300 mg Furosemide (Lasix -) 40 mg PO DAILY [facility] Last Admin: 09/23/16 16:54 Dose: 40 mg Levetiracetam (Keppra -) 1,000 mg PO BID [facility] Last Admin: 09/23/16 22:45 Dose: 1,000 mg Loratadine (Claritin -) 10 mg PO DAILY [facility] Methylprednisolone Sodium Succinate (Solu-Medrol -) 60 mg IVPB Q6H-IV [facility] Last Admin: 09/24/16 03:24 Dose: 60 mg Mometasone Furoate (Asmanex 220mcg -) 1 puff IH [facility] Last Admin: 09/24/16 03:20 Dose: Not Given Oxycodone HCl (Roxicodone -) 5 mg PO Q8H PRN PRN Reason: SEVERE PAIN Polyethylene Glycol (Miralax (For Daily Use) -) 17 gm PO [facility] Last Admin: 09/23/16 22:46 Dose: 17 gm Sotalol HCl (Betapace -) 80 mg PO BID [facility] Last Admin: 09/23/16 22:45 Dose: 80 mg Tamsulosin HCl (Flomax -) 0.4 mg PO DAILY@0830 [facility] Warfarin Sodium (Coumadin -) 7.5 mg PO DAILY@1800 [facility] Last Admin: 09/23/16 18:24 Dose: 7.5 mg - Objective Vital Signs: Vital Signs Temperature 97.8 F 09/24/16 06:00 Pulse Rate 57 L 09/24/16 06:00 Respiratory Rate 20 09/24/16 06:00 Blood Pressure 152/81 09/24/16 06:00 O2 Sat by Pulse Oximetry (%) 97 09/23/16 23:09 Labs: INR, PTT INR 2.35 (0.82-1.09) H 09/22/16 17:58
[2016-09-24 07:55] LABS: INR 2.56 (0.82-1.09); PROTHROMBIN TIME (PATIENT) 28.7 SEC (9.98-11.88)
[2016-09-24 08:21] LABS: ALBUMIN 3.4 g/dl (3.4-5.0); ALK PHOS 104 U/L (45-117); ANION GAP 4 (8-16); BILIRUBIN,TOTAL 0.8 mg/dL (0.2-1.0); CO2 39 mmol/L (21-32); CREATININE 1.1 mg/dL (0.7-1.3); GLUCOSE,RANDOM 124 mg/dL (74-106); MAGNESIUM 2.3 mg/dL (1.8-2.4); SGOT/AST 35 U/L (15-37); SGPT/ALT 31 U/L (12-78); TOT PROT 7.4 g/dl (6.4-8.2)
[2016-09-24] MEDS ORDERED: PT OWN MED DRAWER 7, Y5N ONE (08:42)
[2016-09-24] MEDS: TAMSULOSIN HCL 0.4 MG CAP.ER.24H (FP) PO SCH (08:50)
[2016-09-24] MEDS: levETIRAcetam 500 MG TABLET (FP) PO SCH ×2 (09:06→22:06)
[2016-09-24] MEDS: ASPIRIN COATED 81 MG TABLET.EC PO SCH (09:06)
[2016-09-24] MEDS: SOTALOL HCL 80 MG TABLET (FP) PO SCH ×2 (09:06→22:06)
[2016-09-24] MEDS: FUROSEMIDE 40 MG TABLET (FP) PO SCH (09:06)
[2016-09-24] MEDS: LORATADINE 10 MG TABLET PO SCH (09:06)
--- NOTE | 2016-09-24 14:49 | PN ---
Progress Note, Physician History of Present Illness: pulmonary awake on bipap,less dyspneic - Current Medication List Current Medications: Active Medications Acetaminophen (Tylenol -) 650 mg PO Q8H PRN PRN Reason: PAIN Last Admin: 09/24/16 08:52 Dose: 650 mg Aclidinium [place] (Tudorza -) 1 puff IH BID [facility] Last Admin: 09/24/16 03:21 Dose: Not Given Albuterol Sulfate (Ventolin 0.083% Nebulizer Soln -) 1 amp NEB Q4H PRN PRN Reason: SHORT OF BREATH/WHEEZING Albuterol Sulfate (Ventolin 0.083% Nebulizer Soln -) 1 amp NEB QIDR [facility] Last Admin: 09/24/16 11:10 Dose: Not Given Albuterol/Ipratropium (Duoneb -) 1 amp NEB QIDR [facility] Last Admin: 09/24/16 11:10 Dose: 1 amp Aspirin (Ecotrin -) 81 mg PO DAILY [facility] Last Admin: 09/24/16 09:06 Dose: 81 mg Atorvastatin Calcium (Lipitor -) 40 mg PO HS [facility] Last Admin: 09/23/16 22:46 Dose: 40 mg Docusate Sodium (Colace -) 300 mg PO HS [facility] Last Admin: 09/23/16 22:45 Dose: 300 mg Furosemide (Lasix -) 40 mg PO DAILY [facility] Last Admin: 09/24/16 09:06 Dose: 40 mg Levetiracetam (Keppra -) 1,000 mg PO BID [facility] Last Admin: 09/24/16 09:06 Dose: 1,000 mg Loratadine (Claritin -) 10 mg PO DAILY [facility] Last Admin: 09/24/16 09:06 Dose: 10 mg Methylprednisolone Sodium Succinate (Solu-Medrol -) 60 mg IVPB Q6H-IV [facility] Last Admin: 09/24/16 09:00 Dose: 60 mg Mometasone Furoate (Asmanex 220mcg -) 1 puff IH [facility] Last Admin: 09/24/16 03:20 Dose: Not Given Oxycodone HCl (Roxicodone -) 5 mg PO Q8H PRN PRN Reason: SEVERE PAIN Last Admin: 09/24/16 08:50 Dose: 5 mg Polyethylene Glycol (Miralax (For Daily Use) -) 17 gm PO [facility] Last Admin: 09/23/16 22:46 Dose: 17 gm Sotalol HCl (Betapace -) 80 mg PO BID [facility] Last Admin: 09/24/16 09:06 Dose: 80 mg Tamsulosin HCl (Flomax -) 0.4 mg PO DAILY@0830 [facility] Last Admin: 09/24/16 08:50 Dose: 0.4 mg Warfarin Sodium (Coumadin -) 7.5 mg PO DAILY@1800 [facility] Last Admin: 09/23/16 18:24 Dose: 7.5 mg - Objective Vital Signs: Vital Signs Temperature 97.8 F 09/24/16 06:00 Pulse Rate 63 09/24/16 09:15 Respiratory Rate 20 09/24/16 06:00 Blood Pressure 152/81 09/24/16 06:00 O2 Sat by Pulse Oximetry (%) 97 09/24/16 11:45 Constitutional: Yes: Well Nourished, Calm Eyes: Yes: WNL HENT: Yes: WNL Neck: Yes: Supple Cardiovascular: Yes: Pulse Irregular, S1, S2 Respiratory: Yes: Rhonchi (few scattered ana rhonchi) Gastrointestinal: Yes: Normal Bowel Sounds, Soft Extremities: Yes: WNL Edema: No Labs: CBC, BMP 09/24/16 06:30 09/24/16 06:30 INR, PTT INR 2.56 (0.82-1.09) H 09/24/16 06:30 - ....Imaging Cat Scan: Report Reviewed, Image Reviewed (ewa nodule,new rul nodule) Problem List - Problems (1) CHF (congestive heart failure) Code(s): I50.9 - HEART FAILURE, UNSPECIFIED Qualifiers: (2) COPD (chronic obstructive pulmonary disease) Code(s): J44.9 - CHRONIC OBSTRUCTIVE PULMONARY DISEASE, UNSPECIFIED (3) DVT (deep venous thrombosis) Code(s): I82.409 - ACUTE EMBOLISM AND THOMBOS UNSP DEEP VN UNSP LOWER EXTREMITY (4) HTN (hypertension) Code(s): I10 - ESSENTIAL (PRIMARY) HYPERTENSION (5) BPH (benign prostatic hyperplasia) Code(s): N40.0 - BENIGN PROSTATIC HYPERPLASIA WITHOUT LOWER URINRY TRACT SYMP (6) CAD (coronary artery disease) Code(s): I25.10 - ATHSCL HEART DISEASE OF [place] CORONARY ARTERY W/O ANG PCTRS Qualifiers: (7) Hyperlipidemia Code(s): E78.5 - HYPERLIPIDEMIA, UNSPECIFIED (8) Pulmonary hypertension Code(s): I27.2 - OTHER SECONDARY PULMONARY HYPERTENSION (9) Acute on chronic respiratory failure with hypoxia and hypercapnia Code(s): J96.21 - ACUTE AND CHRONIC RESPIRATORY FAILURE WITH HYPOXIA J96.22 - ACUTE AND CHRONIC RESPIRATORY FAILURE WITH HYPERCAPNIA (10) Cerebrovascular disease Code(s): I67.9 - CEREBROVASCULAR DISEASE, UNSPECIFIED (11) Diabetes mellitus Code(s): E11.9 - TYPE 2 DIABETES MELLITUS WITHOUT COMPLICATIONS Qualifiers: Diabetes mellitus type: type 2 Diabetes mellitus complication status: without complication Qualified Code(s): E11.9 - Type 2 diabetes mellitus without complications (12) Afib Code(s): I48.91 - UNSPECIFIED ATRIAL FIBRILLATION (13) H/O deep venous thrombosis Code(s): Z86.718 - PERSONAL HISTORY OF OTHER VENOUS THROMBOSIS AND EMBOLISM Assessment/Plan IMP ACUTE ON CHRONIC HYPOXEMIC/HYPERCAPNEIC RESPIRATORY FAILURE END STAGE COPD WITH ACUTE EXACERBATION LIKELY URI AFIB CHF EWA NODULE,RUL NODULE ? MALIGNANT S/P CVA HTN H/O DVT PLAN IV STEROIDS SAME DOSE INHALED BRONCHODILATORS NASAL O2 BIPAP PRN SPUTUM C+S MONITOR LYTES,INR F/U ABG ANTICOAGULATION CONSIDER CONSERVATIVE MANAGEMENT PULMONARY NODULE IN VIEW PTS ADVANCED COPD,MULTIPLE CO-MORBIDITIES DR WHITING Problem List - Problems (1) CHF (congestive heart failure) Code(s): I50.9 - HEART FAILURE, UNSPECIFIED Qualifiers: (2) COPD (chronic obstructive pulmonary disease) Code(s): J44.9 - CHRONIC OBSTRUCTIVE PULMONARY DISEASE, UNSPECIFIED (3) DVT (deep venous thrombosis) Code(s): I82.409 - ACUTE EMBOLISM AND THOMBOS UNSP DEEP VN UNSP LOWER EXTREMITY (4) HTN (hypertension) Code(s): I10 - ESSENTIAL (PRIMARY) HYPERTENSION (5) BPH (benign prostatic hyperplasia) Code(s): N40.0 - BENIGN PROSTATIC HYPERPLASIA WITHOUT LOWER URINRY TRACT SYMP (6) CAD (coronary artery disease) Code(s): I25.10 - ATHSCL HEART DISEASE OF [place] CORONARY ARTERY W/O ANG PCTRS Qualifiers: (7) Hyperlipidemia Code(s): E78.5 - HYPERLIPIDEMIA, UNSPECIFIED (8) Pulmonary hypertension Code(s): I27.2 - OTHER SECONDARY PULMONARY HYPERTENSION (9) Acute on chronic respiratory failure with hypoxia and hypercapnia Code(s): J96.21 - ACUTE AND CHRONIC RESPIRATORY FAILURE WITH HYPOXIA J96.22 - ACUTE AND CHRONIC RESPIRATORY FAILURE WITH HYPERCAPNIA (10) Cerebrovascular disease Code(s): I67.9 - CEREBROVASCULAR DISEASE, UNSPECIFIED (11) Diabetes mellitus Code(s): E11.9 - TYPE 2 DIABETES MELLITUS WITHOUT COMPLICATIONS Qualifiers: Diabetes mellitus type: type 2 Diabetes mellitus complication status: without complication Qualified Code(s): E11.9 - Type 2 diabetes mellitus without complications (12) Afib Code(s): I48.91 - UNSPECIFIED ATRIAL FIBRILLATION (13) H/O deep venous thrombosis Code(s): Z86.718 - PERSONAL HISTORY OF OTHER VENOUS THROMBOSIS AND EMBOLISM
[2016-09-24 15:31] LABS: ARTERIAL BLOOD GAS BASE EXCESS 9.9 meq/l (-2-2); ARTERIAL BLOOD GAS HCO3 36.9 meq/L (22-26); ARTERIAL BLOOD GAS pH 7.39 (7.35-7.45)
[2016-09-24 15:32] LABS: ALLENS TEST POSITIVE; ART PUNCT SITE LEFT RADIAL; LPM/O2% 3L; PT. ON O2? YES; TYPE OF O2 NASAL O2
[2016-09-24] MEDS: oxyCODONE HCL 5 MG TABLET PO PRN (16:47)
[2016-09-24] MEDS: ACETAMINOPHEN 325 MG TABLET (FP) PO PRN (16:49)
[2016-09-24] MEDS: WARFARIN NA 7.5 MG TABLET (FP) PO SCH (17:01)
[2016-09-24] MEDS: ATORVASTATIN CA 20 MG TABLET (FP) PO SCH (22:06)
[2016-09-24] MEDS: DOCUSATE SODIUM 100 MG CAPSULE (FP) PO SCH (22:07)
[2016-09-24] MEDS: POLYETHYLENE GLYCOL 3350 119 GM BTL PO SCH (23:03)
[2016-09-25] MEDS: ALBUTEROL SO4 0.083% IH SOL 2.5 MG/3 ML VIAL.NEB. NEB SCH ×2 (00:05→07:01)
[2016-09-25] MEDS: ALBUTEROL SO4 2.5/IPRATROPIUM 0.5 INH SOL 3 ML VIAL.NEB. NEB SCH ×5 (00:05→23:20)
[2016-09-25] MEDS: methylPREDNISolone NA SUCC 40 MG/1 ML VIAL IVPB SCH ×4 (02:26→21:41)
[2016-09-25] MEDS: SOTALOL HCL 80 MG TABLET (FP) PO SCH ×2 (09:46→21:40)
[2016-09-25] MEDS: levETIRAcetam 500 MG TABLET (FP) PO SCH ×2 (09:46→21:40)
[2016-09-25] MEDS: ASPIRIN COATED 81 MG TABLET.EC PO SCH (09:47)
[2016-09-25] MEDS: FUROSEMIDE 40 MG TABLET (FP) PO SCH (09:47)
[2016-09-25] MEDS: LORATADINE 10 MG TABLET PO SCH (09:48)
[2016-09-25] MEDS: TAMSULOSIN HCL 0.4 MG CAP.ER.24H (FP) PO SCH (09:48)
[2016-09-25] MEDS: oxyCODONE HCL 5 MG TABLET PO PRN ×2 (09:49→16:49)
[2016-09-25] MEDS: ACETAMINOPHEN 325 MG TABLET (FP) PO PRN ×2 (09:50→16:50)
[2016-09-25] MEDS: ACLIDINIUM BROMIDE 400 MCG/INH AERO.POWD IH SCH ×2 (09:55→21:40)
--- NOTE | 2016-09-25 10:28 | PN ---
Progress Note (short form) - Note Progress Note: PULMONARY Remains on BiPAP. States breathing is better than yesterday. +minimal cough. Last Vital Signs Temp Pulse Resp BP Pulse Ox 97.6 F 53 L 20 133/77 100 09/25/16 05:47 09/25/16 05:47 09/25/16 05:47 09/25/16 05:47 09/24/16 21:00 Gen: mildly tachypneic on BiPAP Heart: RRR Lung: distant breath sounds, scattered rhonchi Abd: soft, nontender Ext: no edema CBC, BMP 09/24/16 06:30 09/24/16 06:30 Active Medications Acetaminophen (Tylenol -) 650 mg PO Q6H PRN PRN Reason: PAIN Last Admin: 09/25/16 09:50 Dose: 650 mg Aclidinium [place] (Tudorza -) 1 puff IH BID [facility] Last Admin: 09/25/16 09:55 Dose: 1 puff Albuterol Sulfate (Ventolin 0.083% Nebulizer Soln -) 1 amp NEB Q4H PRN PRN Reason: SHORT OF BREATH/WHEEZING Albuterol Sulfate (Ventolin 0.083% Nebulizer Soln -) 1 amp NEB QIDR [facility] Last Admin: 09/25/16 07:01 Dose: Not Given Albuterol/Ipratropium (Duoneb -) 1 amp NEB QIDR [facility] Last Admin: 09/25/16 07:01 Dose: 1 amp Aspirin (Ecotrin -) 81 mg PO DAILY [facility] Last Admin: 09/25/16 09:47 Dose: 81 mg Atorvastatin Calcium (Lipitor -) 40 mg PO [facility] Last Admin: 09/24/16 22:06 Dose: 40 mg Docusate Sodium (Colace -) 300 mg PO HS [facility] Last Admin: 09/24/16 22:07 Dose: 300 mg Furosemide (Lasix -) 40 mg PO DAILY [facility] Last Admin: 09/25/16 09:47 Dose: 40 mg Levetiracetam (Keppra -) 1,000 mg PO BID [facility] Last Admin: 09/25/16 09:46 Dose: 1,000 mg Loratadine (Claritin -) 10 mg PO DAILY [facility] Last Admin: 09/25/16 09:48 Dose: 10 mg Methylprednisolone Sodium Succinate (Solu-Medrol -) 60 mg IVPB Q6H-IV [facility] Last Admin: 09/25/16 09:48 Dose: 60 mg Mometasone Furoate (Asmanex 220mcg -) 1 puff IH [facility] Last Admin: 09/24/16 23:03 Dose: 1 puff Oxycodone HCl (Roxicodone -) 5 mg PO Q6H PRN PRN Reason: SEVERE PAIN Last Admin: 09/25/16 09:49 Dose: 5 mg Polyethylene Glycol (Miralax (For Daily Use) -) 17 gm PO [facility] Last Admin: 09/24/16 23:03 Dose: 17 gm Sotalol HCl (Betapace -) 80 mg PO BID [facility] Last Admin: 09/25/16 09:46 Dose: 80 mg Tamsulosin HCl (Flomax -) 0.4 mg PO DAILY@0830 [facility] Last Admin: 09/25/16 09:48 Dose: 0.4 mg Warfarin Sodium (Coumadin -) 7.5 mg PO DAILY@1800 [facility] Last Admin: 09/24/16 17:01 Dose: 7.5 mg A/P Acute on Chronic Hypoxic and Hypercapneic Respiratory Failure Acute COPD Exacerbation Lung Nodules Atrial Fibrillation CHF Pulmonary HTN HTN h/o DVT - continue medrol at current dose - can taper steroids in AM if continues to improve - inhaled bronchodilators - O2 to keep Spo2 >90% - BiPAP to assist in work of breathing - rate controlled - continue anticoagulation - outpt follow up of lung nodule, agree that pt poor candidate for invasive diagnostic procedures
--- NOTE | 2016-09-25 11:26 | PN ---
Progress Note, Physician Chief Complaint: on bipap is tachypneic on bipap on iv steroid - Current Medication List Current Medications: Active Medications Acetaminophen (Tylenol -) 650 mg PO Q6H PRN PRN Reason: PAIN Last Admin: 09/25/16 09:50 Dose: 650 mg Aclidinium [place] (Tudorza -) 1 puff IH BID [facility] Last Admin: 09/25/16 09:55 Dose: 1 puff Albuterol Sulfate (Ventolin 0.083% Nebulizer Soln -) 1 amp NEB Q4H PRN PRN Reason: SHORT OF BREATH/WHEEZING Albuterol Sulfate (Ventolin 0.083% Nebulizer Soln -) 1 amp NEB QIDR [facility] Last Admin: 09/25/16 07:01 Dose: Not Given Albuterol/Ipratropium (Duoneb -) 1 amp NEB QIDR [facility] Last Admin: 09/25/16 07:01 Dose: 1 amp Aspirin (Ecotrin -) 81 mg PO DAILY [facility] Last Admin: 09/25/16 09:47 Dose: 81 mg Atorvastatin Calcium (Lipitor -) 40 mg PO HS [facility] Last Admin: 09/24/16 22:06 Dose: 40 mg Docusate Sodium (Colace -) 300 mg PO HS [facility] Last Admin: 09/24/16 22:07 Dose: 300 mg Furosemide (Lasix -) 40 mg PO DAILY [facility] Last Admin: 09/25/16 09:47 Dose: 40 mg Levetiracetam (Keppra -) 1,000 mg PO BID [facility] Last Admin: 09/25/16 09:46 Dose: 1,000 mg Loratadine (Claritin -) 10 mg PO DAILY [facility] Last Admin: 09/25/16 09:48 Dose: 10 mg Methylprednisolone Sodium Succinate (Solu-Medrol -) 60 mg IVPB Q6H-IV [facility] Last Admin: 09/25/16 09:48 Dose: 60 mg Mometasone Furoate (Asmanex 220mcg -) 1 puff IH [facility] Last Admin: 09/24/16 23:03 Dose: 1 puff Oxycodone HCl (Roxicodone -) 5 mg PO Q6H PRN PRN Reason: SEVERE PAIN Last Admin: 09/25/16 09:49 Dose: 5 mg Polyethylene Glycol (Miralax (For Daily Use) -) 17 gm PO HS [facility] Last Admin: 09/24/16 23:03 Dose: 17 gm Sotalol HCl (Betapace -) 80 mg PO BID [facility] Last Admin: 09/25/16 09:46 Dose: 80 mg Tamsulosin HCl (Flomax -) 0.4 mg PO DAILY@0830 [facility] Last Admin: 09/25/16 09:48 Dose: 0.4 mg Warfarin Sodium (Coumadin -) 7.5 mg PO DAILY@1800 [facility] Last Admin: 09/24/16 17:01 Dose: 7.5 mg - Objective Vital Signs: Vital Signs Temperature 97.6 F 09/25/16 05:47 Pulse Rate 98 H 09/25/16 10:15 Respiratory Rate 20 09/25/16 05:47 Blood Pressure 133/77 09/25/16 05:47 O2 Sat by Pulse Oximetry (%) 95 09/25/16 10:15 Constitutional: Yes: Calm Cardiovascular: Yes: Regular Rate and Rhythm, S1, S2 Respiratory: Yes: On BiPap, Tachypnea, Other (distant breath sound) Gastrointestinal: Yes: Soft Edema: No Neurological: Yes: Alert, Pre-Existing Deficit Labs: CBC, BMP 09/24/16 06:30 09/24/16 06:30 INR, PTT INR 2.56 (0.82-1.09) H 09/24/16 06:30 Problem List - Problems (1) Acute on chronic respiratory failure with hypoxia and hypercapnia Assessment/Plan: continue bipap iv steroid nebulizer Code(s): J96.21 - ACUTE AND CHRONIC RESPIRATORY FAILURE WITH HYPOXIA J96.22 - ACUTE AND CHRONIC RESPIRATORY FAILURE WITH HYPERCAPNIA (2) Afib Assessment/Plan: sotalol and coumadin inr therapeutic Code(s): I48.91 - UNSPECIFIED ATRIAL FIBRILLATION (3) CVA (cerebral infarction) Assessment/Plan: statin and aspirin Code(s): I63.9 - CEREBRAL INFARCTION, UNSPECIFIED (4) BPH (benign prostatic hyperplasia) Assessment/Plan: flomax Code(s): N40.0 - BENIGN PROSTATIC HYPERPLASIA WITHOUT LOWER URINRY TRACT SYMP
[2016-09-25] MEDS: WARFARIN NA 7.5 MG TABLET (FP) PO SCH (17:02)
[2016-09-25] MEDS: DOCUSATE SODIUM 100 MG CAPSULE (FP) PO SCH (21:40)
[2016-09-25] MEDS: MOMETASONE FUROATE 220 MCG/IH INHALER IH SCH (21:40)
[2016-09-25] MEDS: ATORVASTATIN CA 20 MG TABLET (FP) PO SCH (21:41)
[2016-09-25] MEDS: POLYETHYLENE GLYCOL 3350 119 GM BTL PO SCH (21:41)
[2016-09-26] MEDS: guaiFENesin/D-METHORPHAN HB 10 ML UNIT-DOSE CUPS PO PRN ×3 (00:41→22:02)
[2016-09-26] MEDS: methylPREDNISolone NA SUCC 40 MG/1 ML VIAL IVPB SCH ×4 (02:59→22:00)
[2016-09-26] MEDS: ALBUTEROL SO4 2.5/IPRATROPIUM 0.5 INH SOL 3 ML VIAL.NEB. NEB SCH ×3 (06:35→16:45)
[2016-09-26 07:43] LABS: MCH 31.5 pg (25.7-33.7); MCHC 32.8 g/dl (32.0-35.9); MEAN PLT VOLUME 9.8 fl (7.5-11.1); NEUTROPHILS 90.1 % (42.8-82.8); PLATELET COUNT 122 K/MM3 (134-434)
[2016-09-26 08:06] LABS: PROTHROMBIN TIME (PATIENT) 57.7 SEC (9.98-11.88)
[2016-09-26 08:19] LABS: INR 5.07 (0.82-1.09)
[2016-09-26 08:35] LABS: ALBUMIN 3.2 g/dl (3.4-5.0); ALK PHOS 96 U/L (45-117); ANION GAP 5 (8-16); BILIRUBIN,TOTAL 0.6 mg/dL (0.2-1.0); CALCIUM 9.6 mg/dL (8.5-10.1); CO2 39 mmol/L (21-32); CREATININE 1.2 mg/dL (0.7-1.3); GLUCOSE,RANDOM 122 mg/dL (74-106); SGOT/AST 44 U/L (15-37); SGPT/ALT 48 U/L (12-78)
[2016-09-26] MEDS: TAMSULOSIN HCL 0.4 MG CAP.ER.24H (FP) PO SCH (09:20)
[2016-09-26] MEDS: LORATADINE 10 MG TABLET PO SCH (09:20)
[2016-09-26] MEDS: FUROSEMIDE 40 MG TABLET (FP) PO SCH (09:20)
[2016-09-26] MEDS: levETIRAcetam 500 MG TABLET (FP) PO SCH ×2 (09:21→22:01)
[2016-09-26] MEDS: ACLIDINIUM BROMIDE 400 MCG/INH AERO.POWD IH SCH ×2 (09:22→22:03)
--- NOTE | 2016-09-26 11:02 | PN ---
Progress Note (short form) - Note Progress Note: PULMONARY VSS/AFEBRILE "MY FEET HURT" ANICTERIC DIMINISHED BREATH SOUNDS B/L S1S2 BS+ NO EDEMA LABS/MEDS/NOTES/IMAGING REVIEWED Acute on Chronic Hypoxic and Hypercapneic Respiratory Failure Acute COPD Exacerbation Lung Nodules Atrial Fibrillation CHF Pulmonary HTN HTN h/o DVT - medrol reduced - inhaled bronchodilators - O2 to keep Spo2 >90% - BiPAP to assist in work of breathing - rate controlled - continue anticoagulation - outpt follow up of lung nodule, agree that pt poor candidate for invasive diagnostic procedures Lennox CHAUHAN MD
--- NOTE | 2016-09-26 14:19 | PN ---
Progress Note, Physician Chief Complaint: SOB History of Present Illness: COMFORTABLE IN CHAIR, NO SOB, NAD, HIS FEET STILL HURT. - Current Medication List Current Medications: Active Medications Acetaminophen (Tylenol -) 650 mg PO Q6H PRN PRN Reason: PAIN Last Admin: 09/25/16 16:50 Dose: 650 mg Aclidinium [place] (Tudorza -) 1 puff IH BID [facility] Last Admin: 09/26/16 09:22 Dose: 1 puff Albuterol Sulfate (Ventolin 0.083% Nebulizer Soln -) 1 amp NEB Q4H PRN PRN Reason: SHORT OF BREATH/WHEEZING Albuterol/Ipratropium (Duoneb -) 1 amp NEB QIDR [facility] Last Admin: 09/26/16 11:40 Dose: 1 amp Aspirin (Ecotrin -) 81 mg PO DAILY [facility] Last Admin: 09/25/16 09:47 Dose: 81 mg Atorvastatin Calcium (Lipitor -) 40 mg PO HS [facility] Last Admin: 09/25/16 21:41 Dose: 40 mg Docusate Sodium (Colace -) 300 mg PO HS [facility] Last Admin: 09/25/16 21:40 Dose: 300 mg Furosemide (Lasix -) 40 mg PO DAILY [facility] Last Admin: 09/26/16 09:20 Dose: 40 mg Guaifenesin (Robitussin Dm -) 10 ml PO Q6H PRN Last Admin: 09/26/16 10:14 Dose: 10 ml Levetiracetam (Keppra -) 1,000 mg PO BID [facility] Last Admin: 09/26/16 09:21 Dose: 1,000 mg Loratadine (Claritin -) 10 mg PO DAILY [facility] Last Admin: 09/26/16 09:20 Dose: 10 mg Methylprednisolone Sodium Succinate (Solu-Medrol -) 40 mg IVPB Q6H-IV [facility] Mometasone Furoate (Asmanex 220mcg -) 1 puff IH [facility] Last Admin: 09/25/16 21:40 Dose: 1 puff Oxycodone HCl (Roxicodone -) 5 mg PO Q6H PRN PRN Reason: SEVERE PAIN Last Admin: 09/25/16 16:49 Dose: 5 mg Polyethylene Glycol (Miralax (For Daily Use) -) 17 gm PO HS [facility] Last Admin: 09/25/16 21:41 Dose: 17 gm Sotalol HCl (Betapace -) 80 mg PO BID [facility] Last Admin: 09/25/16 21:40 Dose: 80 mg Tamsulosin HCl (Flomax -) 0.4 mg PO DAILY@0830 [facility] Last Admin: 09/26/16 09:20 Dose: 0.4 mg Warfarin Sodium (Coumadin -) 7.5 mg PO DAILY@1800 [facility] Last Admin: 09/25/16 17:02 Dose: 7.5 mg - Objective Vital Signs: Vital Signs Temperature 97.8 F 09/26/16 05:37 Pulse Rate 50 L 09/26/16 05:37 Respiratory Rate 20 09/26/16 05:37 Blood Pressure 137/79 09/26/16 05:37 O2 Sat by Pulse Oximetry (%) 94 L 09/26/16 02:47 Constitutional: Yes: Well Nourished, No Distress, Calm Cardiovascular: Yes: Pulse Irregular Respiratory: Yes: Regular Gastrointestinal: Yes: Normal Bowel Sounds Musculoskeletal: Yes: WNL Edema: No Peripheral Pulses WNL: Yes Labs: CBC, BMP 09/26/16 06:00 09/26/16 06:00 INR, PTT INR 5.07 (0.82-1.09) H* D 09/26/16 06:00 Problem List - Problems (1) Acute on chronic respiratory failure with hypoxia and hypercapnia Code(s): J96.21 - ACUTE AND CHRONIC RESPIRATORY FAILURE WITH HYPOXIA J96.22 - ACUTE AND CHRONIC RESPIRATORY FAILURE WITH HYPERCAPNIA (2) Afib Assessment/Plan: ON WARFARIN, INR-5.0, HOLDING WARFARIN, REPEAT LABS IN AM Code(s): I48.91 - UNSPECIFIED ATRIAL FIBRILLATION (3) CHF (congestive heart failure) Assessment/Plan: ON NASAL O2, TOLERATING WELL. BIPAP STANDBY NEEDED, NEB TX, TAPERING IV STEROIDS Code(s): I50.9 - HEART FAILURE, UNSPECIFIED Qualifiers: (4) COPD (chronic obstructive pulmonary disease) Code(s): J44.9 - CHRONIC OBSTRUCTIVE PULMONARY DISEASE, UNSPECIFIED Assessment/Plan IV STEROIDS, NEB TX PULMONARY CONSULT IV FUROSEMIDE HOLD WARFARIN D/C TO REHAB IF STABLE
[2016-09-26] MEDS: ASPIRIN COATED 81 MG TABLET.EC PO SCH (15:27)
[2016-09-26] MEDS: SOTALOL HCL 80 MG TABLET (FP) PO SCH ×2 (15:28→22:00)
[2016-09-26] MEDS: ACETAMINOPHEN 325 MG TABLET (FP) PO PRN ×2 (15:35→22:07)
[2016-09-26] MEDS ORDERED: CARBAMIDE PEROXIDE 6.5% OTIC 15 ML BOTTLE AD ONE (16:00)
[2016-09-26] MEDS ORDERED: PT OWN MED DRAWER 7, Y5N ONE (21:11)
[2016-09-26] MEDS: DOCUSATE SODIUM 100 MG CAPSULE (FP) PO SCH (22:00)
[2016-09-26] MEDS: GABAPENTIN 100 MG CAPSULE (FP) PO SCH (22:01)
[2016-09-26] MEDS: POLYETHYLENE GLYCOL 3350 119 GM BTL PO SCH (22:01)
[2016-09-26] MEDS: ATORVASTATIN CA 20 MG TABLET (FP) PO SCH (22:01)
[2016-09-26] MEDS: MOMETASONE FUROATE 220 MCG/IH INHALER IH SCH (22:03)
[2016-09-27] MEDS: ALBUTEROL SO4 2.5/IPRATROPIUM 0.5 INH SOL 3 ML VIAL.NEB. NEB SCH ×5 (00:06→23:40)
[2016-09-27] MEDS: methylPREDNISolone NA SUCC 40 MG/1 ML VIAL IVPB SCH ×4 (02:15→21:58)
[2016-09-27] MEDS: guaiFENesin/D-METHORPHAN HB 10 ML UNIT-DOSE CUPS PO PRN ×2 (06:33→22:29)
[2016-09-27] MEDS: GABAPENTIN 100 MG CAPSULE (FP) PO SCH ×3 (06:33→21:57)
[2016-09-27] MEDS: ACETAMINOPHEN 325 MG TABLET (FP) PO PRN ×2 (06:35→21:57)
[2016-09-27 07:31] LABS: MCH 31.7 pg (25.7-33.7); MEAN CELL VOLUME 96.2 fl (80-96); MEAN PLT VOLUME 9.8 fl (7.5-11.1); NEUTROPHILS 85.5 % (42.8-82.8); PLATELET COUNT 134 K/MM3 (134-434)
[2016-09-27 07:49] LABS: CALCIUM 9.3 mg/dL (8.5-10.1)
[2016-09-27 07:56] LABS: ALBUMIN 3.1 g/dl (3.4-5.0); ALK PHOS 97 U/L (45-117); ANION GAP 8 (8-16); BILIRUBIN,TOTAL 0.6 mg/dL (0.2-1.0); CO2 35 mmol/L (21-32); CREATININE 1.3 mg/dL (0.7-1.3); GLUCOSE,RANDOM 116 mg/dL (74-106); SGOT/AST 44 U/L (15-37); SGPT/ALT 61 U/L (12-78)
[2016-09-27 08:06] LABS: PROTHROMBIN TIME (PATIENT) 51.3 SEC (9.98-11.88)
[2016-09-27 08:08] LABS: INR 4.52 (0.82-1.09)
[2016-09-27] MEDS: TAMSULOSIN HCL 0.4 MG CAP.ER.24H (FP) PO SCH (08:17)
[2016-09-27] MEDS ORDERED: PT OWN MED DRAWER 7, Y5N ONE (08:58)
[2016-09-27] MEDS: oxyCODONE HCL 5 MG TABLET PO PRN (09:03)
[2016-09-27] MEDS: levETIRAcetam 500 MG TABLET (FP) PO SCH ×2 (09:04→21:57)
[2016-09-27] MEDS: FUROSEMIDE 40 MG TABLET (FP) PO SCH (09:07)
[2016-09-27] MEDS: LORATADINE 10 MG TABLET PO SCH (09:07)
[2016-09-27] MEDS: SOTALOL HCL 80 MG TABLET (FP) PO SCH ×2 (09:07→21:57)
[2016-09-27] MEDS: ACLIDINIUM BROMIDE 400 MCG/INH AERO.POWD IH SCH ×2 (09:08→21:58)
[2016-09-27] MEDS: ASPIRIN COATED 81 MG TABLET.EC PO SCH (09:11)
--- NOTE | 2016-09-27 10:38 | PN ---
Progress Note (short form) - Note Progress Note: PULMONARY Breathing slowly improving. Still with wheezing and cough productive of yellow/ green sputum. Last Vital Signs Temp Pulse Resp BP Pulse Ox 98.7 F 61 20 148/74 98 09/27/16 05:00 09/27/16 05:00 09/27/16 05:00 09/27/16 05:00 09/26/16 21:00 Gen: mildly tachypneic with speaking Heart: RRR Lung: distant breath sounds, scattered wheezes, rhonchi Abd: soft, nontender Ext: no edema CBC, BMP 09/27/16 06:00 09/27/16 06:00 Active Medications Acetaminophen (Tylenol -) 650 mg PO Q6H PRN PRN Reason: PAIN Last Admin: 09/27/16 06:35 Dose: 650 mg Aclidinium [place] (Tudorza -) 1 puff IH BID [facility] Last Admin: 09/27/16 09:08 Dose: 1 puff Albuterol Sulfate (Ventolin 0.083% Nebulizer Soln -) 1 amp NEB Q4H PRN PRN Reason: SHORT OF BREATH/WHEEZING Albuterol/Ipratropium (Duoneb -) 1 amp NEB QIDR [facility] Last Admin: 09/27/16 06:34 Dose: 1 amp Aspirin (Ecotrin -) 81 mg PO DAILY [facility] Last Admin: 09/27/16 09:11 Dose: 81 mg Atorvastatin Calcium (Lipitor -) 40 mg PO HS [facility] Last Admin: 09/26/16 22:01 Dose: 40 mg Docusate Sodium (Colace -) 300 mg PO [facility] Last Admin: 09/26/16 22:00 Dose: 300 mg Furosemide (Lasix -) 40 mg PO DAILY [facility] Last Admin: 09/27/16 09:07 Dose: 40 mg Gabapentin (Neurontin -) 100 mg PO TID [facility] Last Admin: 09/27/16 06:33 Dose: 100 mg Guaifenesin (Robitussin Dm -) 10 ml PO Q6H PRN Last Admin: 09/27/16 06:33 Dose: 10 ml Levetiracetam (Keppra -) 1,000 mg PO BID [facility] Last Admin: 09/27/16 09:04 Dose: 1,000 mg Loratadine (Claritin -) 10 mg PO DAILY [facility] Last Admin: 09/27/16 09:07 Dose: 10 mg Methylprednisolone Sodium Succinate (Solu-Medrol -) 40 mg IVPB Q6H-IV [facility] Last Admin: 09/27/16 09:08 Dose: 40 mg Mometasone Furoate (Asmanex 220mcg -) 1 puff IH HS [facility] Last Admin: 09/26/16 22:03 Dose: 1 puff Oxycodone HCl (Roxicodone -) 5 mg PO Q6H PRN PRN Reason: SEVERE PAIN Last Admin: 09/27/16 09:03 Dose: 5 mg Polyethylene Glycol (Miralax (For Daily Use) -) 17 gm PO HS [facility] Last Admin: 09/26/16 22:01 Dose: Not Given Sotalol HCl (Betapace -) 80 mg PO BID [facility] Last Admin: 09/27/16 09:07 Dose: 80 mg Tamsulosin HCl (Flomax -) 0.4 mg PO DAILY@0830 [facility] Last Admin: 09/27/16 08:17 Dose: 0.4 mg Warfarin Sodium (Coumadin -) 7.5 mg PO DAILY@1800 [facility] Last Admin: 09/25/16 17:02 Dose: 7.5 mg A/P Acute on Chronic Hypoxic and Hypercapneic Respiratory Failure Acute COPD Exacerbation Lung Nodules Atrial Fibrillation CHF Pulmonary HTN HTN h/o DVT - continue medrol at current dose - can taper steroids in AM if continues to improve - inhaled bronchodilators - O2 to keep Spo2 >90% - BiPAP to assist in work of breathing - rate controlled - continue anticoagulation - outpt follow up of lung nodule, agree that pt poor candidate for invasive diagnostic procedures
--- NOTE | 2016-09-27 11:26 | PN ---
Progress Note, Physician Chief Complaint: breathing improving slowly has cough on iv medrol inr supratherapeutic no fever - Current Medication List Current Medications: Active Medications Acetaminophen (Tylenol -) 650 mg PO Q6H PRN PRN Reason: PAIN Last Admin: 09/27/16 06:35 Dose: 650 mg Aclidinium [place] (Tudorza -) 1 puff IH BID [facility] Last Admin: 09/27/16 09:08 Dose: 1 puff Albuterol Sulfate (Ventolin 0.083% Nebulizer Soln -) 1 amp NEB Q4H PRN PRN Reason: SHORT OF BREATH/WHEEZING Albuterol/Ipratropium (Duoneb -) 1 amp NEB QIDR [facility] Last Admin: 09/27/16 06:34 Dose: 1 amp Aspirin (Ecotrin -) 81 mg PO DAILY [facility] Last Admin: 09/27/16 09:11 Dose: 81 mg Atorvastatin Calcium (Lipitor -) 40 mg PO HS [facility] Last Admin: 09/26/16 22:01 Dose: 40 mg Docusate Sodium (Colace -) 300 mg PO HS [facility] Last Admin: 09/26/16 22:00 Dose: 300 mg Furosemide (Lasix -) 40 mg PO DAILY [facility] Last Admin: 09/27/16 09:07 Dose: 40 mg Gabapentin (Neurontin -) 100 mg PO TID [facility] Last Admin: 09/27/16 06:33 Dose: 100 mg Guaifenesin (Robitussin Dm -) 10 ml PO Q6H PRN Last Admin: 09/27/16 06:33 Dose: 10 ml Levetiracetam (Keppra -) 1,000 mg PO BID [facility] Last Admin: 09/27/16 09:04 Dose: 1,000 mg Loratadine (Claritin -) 10 mg PO DAILY [facility] Last Admin: 09/27/16 09:07 Dose: 10 mg Methylprednisolone Sodium Succinate (Solu-Medrol -) 40 mg IVPB Q6H-IV [facility] Last Admin: 09/27/16 09:08 Dose: 40 mg Mometasone Furoate (Asmanex 220mcg -) 1 puff IH HS [facility] Last Admin: 09/26/16 22:03 Dose: 1 puff Oxycodone HCl (Roxicodone -) 5 mg PO Q6H PRN PRN Reason: SEVERE PAIN Last Admin: 09/27/16 09:03 Dose: 5 mg Polyethylene Glycol (Miralax (For Daily Use) -) 17 gm PO HS [facility] Last Admin: 09/26/16 22:01 Dose: Not Given Sotalol HCl (Betapace -) 80 mg PO BID [facility] Last Admin: 09/27/16 09:07 Dose: 80 mg Tamsulosin HCl (Flomax -) 0.4 mg PO DAILY@0830 [facility] Last Admin: 09/27/16 08:17 Dose: 0.4 mg Warfarin Sodium (Coumadin -) 7.5 mg PO DAILY@1800 [facility] Last Admin: 09/25/16 17:02 Dose: 7.5 mg - Objective Vital Signs: Vital Signs Temperature 98.7 F 09/27/16 05:00 Pulse Rate 61 09/27/16 05:00 Respiratory Rate 20 09/27/16 05:00 Blood Pressure 148/74 09/27/16 05:00 O2 Sat by Pulse Oximetry (%) 98 09/26/16 21:00 Constitutional: Yes: Calm Cardiovascular: Yes: Regular Rate and Rhythm, S1, S2 Respiratory: Yes: Other (distant breath sounda) Gastrointestinal: Yes: Normal Bowel Sounds, Soft Neurological: Yes: Alert, Pre-Existing Deficit Labs: CBC, BMP 09/27/16 06:00 09/27/16 06:00 INR, PTT INR 4.52 (0.82-1.09) H* 09/27/16 06:00 Problem List - Problems (1) Acute on chronic respiratory failure with hypoxia and hypercapnia Assessment/Plan: continue bipap iv steroid to continue same dose for now per pulm nebulizer Code(s): J96.21 - ACUTE AND CHRONIC RESPIRATORY FAILURE WITH HYPOXIA J96.22 - ACUTE AND CHRONIC RESPIRATORY FAILURE WITH HYPERCAPNIA (2) Afib Assessment/Plan: coumadin on hold check inr in am Code(s): I48.91 - UNSPECIFIED ATRIAL FIBRILLATION (3) CVA (cerebral infarction) Assessment/Plan: statin and aspirin Code(s): I63.9 - CEREBRAL INFARCTION, UNSPECIFIED (4) BPH (benign prostatic hyperplasia) Assessment/Plan: flomax Code(s): N40.0 - BENIGN PROSTATIC HYPERPLASIA WITHOUT LOWER URINRY TRACT SYMP Assessment/Plan if breathing better will change to po steroids check INR in am hold nathan
[2016-09-27] MEDS: ALBUTEROL SO4 0.083% IH SOL 2.5 MG/3 ML VIAL.NEB. NEB PRN (21:05)
[2016-09-27] MEDS: DOCUSATE SODIUM 100 MG CAPSULE (FP) PO SCH (21:57)
[2016-09-27] MEDS: ATORVASTATIN CA 20 MG TABLET (FP) PO SCH (21:57)
[2016-09-27] MEDS: MOMETASONE FUROATE 220 MCG/IH INHALER IH SCH (21:58)
[2016-09-27] MEDS: POLYETHYLENE GLYCOL 3350 119 GM BTL PO SCH (21:59)
[2016-09-28] MEDS: methylPREDNISolone NA SUCC 40 MG/1 ML VIAL IVPB SCH ×3 (03:24→15:17)
[2016-09-28] MEDS: GABAPENTIN 100 MG CAPSULE (FP) PO SCH ×2 (05:25→15:17)
[2016-09-28] MEDS: guaiFENesin/D-METHORPHAN HB 10 ML UNIT-DOSE CUPS PO PRN ×2 (05:25→11:57)
[2016-09-28] MEDS: ALBUTEROL SO4 2.5/IPRATROPIUM 0.5 INH SOL 3 ML VIAL.NEB. NEB SCH ×2 (06:58→12:00)
[2016-09-28 08:08] LABS: INR 2.74 (0.82-1.09); PROTHROMBIN TIME (PATIENT) 30.8 SEC (9.98-11.88)
[2016-09-28] MEDS ORDERED: PT OWN MED DRAWER 7, Y5N ONE (08:59)
[2016-09-28] MEDS: ACETAMINOPHEN 325 MG TABLET (FP) PO PRN (09:03)
[2016-09-28] MEDS: TAMSULOSIN HCL 0.4 MG CAP.ER.24H (FP) PO SCH (09:08)
[2016-09-28] MEDS: ACLIDINIUM BROMIDE 400 MCG/INH AERO.POWD IH SCH (09:08)
[2016-09-28] MEDS: SOTALOL HCL 80 MG TABLET (FP) PO SCH (09:08)
[2016-09-28] MEDS: LORATADINE 10 MG TABLET PO SCH (09:08)
[2016-09-28] MEDS: levETIRAcetam 500 MG TABLET (FP) PO SCH (09:08)
[2016-09-28] MEDS: ASPIRIN COATED 81 MG TABLET.EC PO SCH (09:08)
[2016-09-28] MEDS: FUROSEMIDE 40 MG TABLET (FP) PO SCH (09:08)
--- NOTE | 2016-09-28 11:13 | DS ---
Physical Examination Vital Signs: Vital Signs Temperature 98.4 F 09/28/16 09:00 Pulse Rate 62 09/28/16 09:00 Respiratory Rate 20 09/28/16 09:00 Blood Pressure 120/60 09/28/16 09:00 O2 Sat by Pulse Oximetry (%) 90 L 09/27/16 21:00 Findings/Remarks: feeling better today still has cough with sputum but is less Constitutional: Yes: Calm Cardiovascular: Yes: Regular Rate and Rhythm, S1, S2 Respiratory: Yes: Other (distant breath sounds) Gastrointestinal: Yes: Normal Bowel Sounds, Soft Edema: No Neurological: Yes: Alert, Oriented, Pre-Existing Deficit Labs: CBC, BMP 09/27/16 06:00 09/27/16 06:00 Discharge Summary Reason For Visit: RESPIRATORY DISTRESS Current Active Problems Acute on chronic respiratory failure with hypoxia and hypercapnia (Acute) Afib (Acute) Atrial flutter (Acute) CHF (congestive heart failure) (Acute) COPD (chronic obstructive pulmonary disease) (Acute) CVA (cerebral infarction) (Acute) Chest pain (Acute) DVT (deep venous thrombosis) (Acute) H/O deep venous thrombosis (Acute) HTN (hypertension) (Acute) Hospital Course: PCP: Kimani Hein - Admission Chief Complaint: SOB History of Present Illness: The patient is a 71 year old male, resident of [facility], with a significant past medical history of afib (on Coumadin), CHF, COPD (on home O2 2- 3 L), HTN, HLD, pulmonary valve disorder, CVA, seizure, GI bleed, DVT, and anemia, who presents to the ER with gradually worsening shortness of breath, wheezing, and productive cough for several days. Patient says he has been coughing and bringing up yellow phlegm. He says he has noticed he recently needed to increase his oxygen dosage to higher than 2-3L. Patient had a Chest XR done on 09/21/16 which documented that he has a moderate enlarged heart, possible pachy bilateral perihilar increased markings. Patient reports he was diagnosed with pneumonia at his alf and has been taking Azithromycin for the infection. Patient reports also noticing bilateral foot edema. 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 Cardiovascular: Yes: CAD, CHF, HTN, Hyperlipdemia, Pulmonary Hypertension Pulmonary: Yes: COPD, Other (CB pulmonary nodule on CT 03/28/14) Gastrointestinal: Yes: GERD, GI Bleed - Advance Directives Advance Directives: Yes: DNR - Smoking History Smoking history: Former smoker Have you smoked in the past 12 months: No Aproximately how many cigarettes per day: 0 If you are a former smoker, when did you quit?: 2002 end stage copd exacerbation iv steroids now change to po steroids 40mg po bid then 40mg po daily for 3 days then 20mg po daily for 2 days then 10mg po dily afib on couamdin pul nodule noted on ct scan outpatient FU needed for patient supratherapeutic INR couamdin on hold check inr w and saturday - Instructions Referrals: Kimani Hein MD [Primary Care Provider] - - Home Medications Comprehensive Discharge Medication List: Ambulatory Orders Acetaminophen [Tylenol] 650 mg PO Q8H PRN 07/13/14 Atorvastatin Ca [Lipitor] 40 mg PO HS 07/13/14 Levetiracetam [Keppra -] 1,000 mg PO BID 07/13/14 Polyethylene Glycol 3350 [Miralax 119 gm Btl -] 17 gm PO HS 07/13/14 Sotalol HCl [Sotalol] 80 mg PO BID 07/13/14 Aclidinium [place] [Tudorza -] 1 inh PO BID 07/20/15 Docusate Sodium [Colace -] 300 mg PO HS 07/20/15 Tamsulosin HCl [Flomax -] 0.4 mg PO DAILY@0830 cap.er.24h 07/26/15 Albuterol 0.083% Nebulizer [place] [Ventolin 0.083% Nebulizer Soln -] 1 neb NEB Q4H 08/17/15 Flovent Diskus 44 mcg IH Q12H 08/17/15 Oxycodone HCl 5 mg PO Q8H PRN 08/17/15 Albuterol 0.083% Nebulizer [place] [Ventolin 0.083% Nebulizer Soln -] 1 amp NEB QIDR amp 08/20/15 Aspirin Coated [Ecotrin -] 81 mg PO DAILY tablet.ec 08/20/15 Furosemide [Lasix -] 40 mg PO DAILY tablet 08/20/15 Loratadine [Claritin] 10 mg PO DAILY 09/22/16 Warfarin Na [Coumadin -] 7.5 mg PO DAILY@1800 09/22/16
[2016-09-28] MEDS: oxyCODONE HCL 5 MG TABLET PO PRN (11:56)
[2016-09-28 14:11] VITALS: BP 128/71; PULSE 56; TEMP 98.3
--- NOTE | 2016-09-28 15:16 | PN ---
Progress Note (short form) - Note Progress Note: PULMONARY VSS/AFEBRILE ANICTERIC DIMINISHED BREATH SOUNDS B/L S1S2 BS+ NO EDEMA LABS/MEDS/NOTES/IMAGING REVIEWED Acute on Chronic Hypoxic and Hypercapneic Respiratory Failure Acute COPD Exacerbation Lung Nodules Atrial Fibrillation CHF Pulmonary HTN HTN h/o DVT - medrol changed to prednisone - inhaled bronchodilators - O2 to keep Spo2 >90% - BiPAP to assist in work of breathing - rate controlled - continue anticoagulation - outpt follow up of lung nodule, agree that pt poor candidate for invasive diagnostic procedures - agree with [facility] Lennox CHAUHAN MD
[2016-09-28] MEDS: ALBUTEROL SO4 0.083% IH SOL 2.5 MG/3 ML VIAL.NEB. NEB PRN (15:43)
== END 2016-09-28 16:29 | DRG 189 ==
LOC: JER 17:29 → JERBED 22:22 → J7W 09-23 22:17
PROVIDERS: ADMIT Family Medicine; ATTEND Family Medicine
PROC: 5A09357 Assistance with Respiratory Ventilation, Less than 24 Consecutive Hours, Continuous Positive Airway Pressure (ICD-10-PCS; principal; 2016-09-22)
DX: J96.22 Acute and chronic respiratory failure with hypercapnia (principal); I69.351 Hemiplegia and hemiparesis following cerebral infarction affecting right dominant side; J44.1 Chronic obstructive pulmonary disease with (acute) exacerbation; J96.21 Acute and chronic respiratory failure with hypoxia; I48.91 Unspecified atrial fibrillation; Z79.01 Long term (current) use of anticoagulants; Z99.81 Dependence on supplemental oxygen; E78.5 Hyperlipidemia, unspecified; I11.0 Hypertensive heart disease with heart failure; I50.9 Heart failure, unspecified; Z86.718 Personal history of other venous thrombosis and embolism; D64.9 Anemia, unspecified; G40.909 Epilepsy, unspecified, not intractable, without status epilepticus; J06.9 Acute upper respiratory infection, unspecified; R91.1 Solitary pulmonary nodule; N40.0 Benign prostatic hyperplasia without lower urinary tract symptoms; I27.2 Other secondary pulmonary hypertension
CPT/HCPCS: 36415; 36600; 71010-TC; 71250-TC; 80053; 81003; 81015; 82375; 82550; 82803; 83036; 83050; 83605; 83735; 83880; 84484; 85025; 85610; 87040; 87081; 93005; 93010; 93306-TC; 94640; 94660; 97116-GP; 97162-GP; 99285-25

== ENCOUNTER 2017-05-05 10:34 | Inpatient (IN) | payer OTHER ==
[2017-05-05 10:50] VITALS: BMI 29.1
[2017-05-05] MEDS ORDERED: FUROSEMIDE 40 MG/4 ML INJECTABLE VIAL IVPB ONE (10:51)
[2017-05-05] MEDS ORDERED: ALBUTEROL SO4 2.5/IPRATROPIUM 0.5 INH SOL 3 ML VIAL.NEB. NEB ONE ×3 (10:51→13:43)
[2017-05-05] MEDS ORDERED: methylPREDNISolone NA SUCC 125 MG/2 ML VIAL IVPB ONE (10:51)
--- NOTE | 2017-05-05 10:54 | PDOC ---
Attending Attestation - Resident Resident Name: Catarina Harris - ED Attending Attestation I have performed the following: I have examined & evaluated the patient, The case was reviewed & discussed with the resident, I agree w/resident's findings & plan, Exceptions are as noted - HPI HPI: 05/05/17 10:54 72M with h/o afib (on Coumadin), CHF, COPD (on home O2 2-3 L), HTN, HLD, pulmonary valve disorder, CVA, seizure, GI bleed, DVT, and anemia, presenting from [facility] with respiratory distress. Per EMS report, pt was found unresponsive by [place] staff, breathing agonally. They administered rescue breaths via ambu bag until EMS arrived. EMS states that by the time they arrived, pt was awake and alert, breathing spontaneously. They note that he was hypoxic to 80s en route, with elevated BP 180s systolic. Upon arrival to ER, pt is awake, alert, able to state that he is SOB. Pt states that this has been going on "for a while". He denies chest pain currently. Pt otherwise unable to contribute history due to advanced dementia. - Physicial Exam PE: 05/05/17 10:57 "GENERAL: Awake, alert, in moderate respiratory distress HEAD: No signs of trauma EYES: PERRLA, EOMI, sclera anicteric, conjunctiva clear ENT: Auricles normal inspection, hearing grossly normal, nares patent, oropharynx clear without exudates. Moist mucosa NECK: Nontender, no stepoffs, Normal ROM, supple, no lymphadenopathy, JVD, or masses LUNGS: diminished breath sounds bilaterally HEART: Regular rate and rhythm, normal S1 and S2, no murmurs, rubs or gallops ABDOMEN: Soft, nontender, normoactive bowel sounds. No guarding, no rebound. No masses EXTREMITIES: 2+ PE BLE NEUROLOGICAL: Cranial nerves II through XII intact. 5/5 strength and sensation in all extremities, Normal speech, normal gait SKIN: Warm, Dry, normal turgor, no rashes or lesions noted. " - Medical Decision Making 05/05/17 10:58 72 M found in respiratory distress, hypoxic in ED and reportedly hypertensive en route, concerning for APE. Pt with 2+ pitting edema on exam, consistent with volume overload. Also consider COPD exacerbation, though pt with no significant wheezing at this time. - Labs, VBG, BNP, trop - BiPAP - Nitro PRN - Trial of nebulizers, steroids 05/05/17 11:59 Pt with VBG pH 7.22, CO2 >80, consistent with acute COPD exacerbation Continuing nebulizer treatments on BiPAP. Steroids administered. CXR clear, no evidence of PNA. BNP 8000, markedly elevated from prior. Pt with lactate 5, likely hypoperfusion 2/2 heart failure. Pt does not appear septic. Labs also show 5 point drop in Hb (14->9) Will send stool guaiac. Low threshold for transfusion.
--- NOTE | 2017-05-05 10:56 | PDOC ---
History of Present Illness - General Chief Complaint: Shortness of Breath Stated Complaint: SOB Time Seen by Provider: 05/05/17 10:43 History Source: Patient, EMS - History of Present Illness Initial Comments: 05/05/17 10:57 Patient is a 72 y.o. male with a PMH of Afib (on Warfarin) COPD (on 2-3 L @ baseline), h/o DVT (on Warfarin), PVD, who presents from [facility] with a c/o respiratory distress. At presentation patient c/o dyspnea which he states has been "going on for a while" and denies any chest pain. As per nursing cage supervisor @ [facility] (Ms. Angelina Franklin [phone]) patient was in his usual state of health this morning @ 9:15 a.m. Patient became unresponsive in front of transporter with thready pulse, rescue breaths adminstered via BMV. 911 was called and patient was responsive was given BMV and became responsive. EMS notes patient was hypertensive (SBP 180's) and Hypoxic (SpO2 80's) en route. NKDA PMD: Dr. Hein Past History - Past Medical History Allergies/Adverse Reactions: Allergies Allergy/AdvReac Type Severity Reaction Status Date / Time No Known Allergies Allergy Verified 05/05/17 12:05 Home Medications: Ambulatory Orders Acetaminophen 650 mg PO Q8H PRN 05/05/17 Aclidinium [place] [Tudorza Pressair] 1 inh IH Q12H 05/05/17 Albuterol 0.083% Nebulizer Lyubov [Ventolin 0.083% Nebulizer Soln -] 1 neb NEB Q6H 05/05/17 Amlodipine Besylate 5 mg PO DAILY 05/05/17 Aspirin [Aspirin EC] 81 mg PO DAILY 05/05/17 Atorvastatin Ca [Lipitor] 20 mg PO HS 05/05/17 Baclofen 10 mg PO BID 05/05/17 Chlorpheniramine/Dextromethorp [Robitussin Long-Acting Liq] 10 ml PO Q6H PRN Citalopram Hydrobromide [Celexa -] 10 mg PO DAILY 05/05/17 Diclofenac Sodium [Voltaren] 2 gm TP QID PRN 05/05/17 Docusate Sodium 300 mg PO HS 05/05/17 Ergocalciferol [Drisdol Oral Solution -] 50,000 units PO FR 05/05/17 Fluticasone Propionate [Flovent Hfa] 1 inh IH BID 05/05/17 Folic Acid 1 mg PO DAILY 05/05/17 Furosemide [Lasix -] 40 mg PO DAILY 05/05/17 Gabapentin 300 mg PO BID 05/05/17 Levetiracetam 750 mg PO BID 05/05/17 Levofloxacin [Levaquin] 500 mg PO DAILY 05/05/17 Mineral Oil/Petrolatum,White [Artificial Tears Eye Ointment] 1 drop OU BID 05/05 Oxycodone HCl 5 mg PO Q8H PRN 05/05/17 Polyethylene Glycol 3350 [Clearlax] 17 gm PO DAILY 05/05/17 Prednisone 5 mg PO DAILY 05/05/17 Ranitidine HCl [Zantac] 150 mg PO HS 05/05/17 Sodium Chloride [Saline Mist] 2 spray NS Q6H 05/05/17 Sotalol HCl [Betapace -] 80 mg PO DAILY 05/05/17 Tamsulosin HCl 0.4 mg PO DAILY 05/05/17 Thiamine HCl [Vitamin B1] 100 mg PO DAILY 05/05/17 Warfarin Na [Coumadin] 7 mg PO DAILY 05/05/17 Anemia: Yes Asthma: Yes Cancer: No Cardiac Disorders: Yes (h/o dvt; pulmonary valve disorder, artheriascleroric heart ds,) CVA: Yes (2001, 2003, two times 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 - Surgical History Abdominal Surgery: No Appendectomy: No Cardiac Surgery: No Cholecystectomy: No Lung Surgery: No Neurologic Surgery: No Orthopedic Surgery: Yes (LT ANKLE SURGERY) - Immunization History Td Vaccination: Yes TDAP Vaccination: Yes Immunization Up to Date: Yes - Suicide/Smoking/Psychosocial Hx Smoking Status: No Smoking History: Unknown if ever smoked Years of Tobacco Use: 30 Have you smoked in the past 12 months: No Number of Cigarettes Smoked Daily: 0 If you are a former smoker, when did you quit?: 2002 Information on smoking cessation initiated: No Hx Alcohol Use: No Drug/Substance Use Hx: No Substance Use Type: None Hx Substance Use Treatment: No Review of Systems - Review of Systems Able to Perform ROS?: No *Physical Exam - Vital Signs Last Vital Signs Temp Pulse Resp BP Pulse Ox 65 18 112/67 100 05/05/17 10:35 05/05/17 10:35 05/05/17 10:35 05/05/17 10:35 - Physical Exam General Appearance: Yes: Nourished, Appropriately Dressed HEENT: positive: EOMI Neck: positive: Trachea midline, Supple Respiratory/Chest: positive: Lungs Clear. 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 male who presents to the ED in respiratory distress - hypoxic to 80% @ presentation. Possible COPD exacerbation vs CHF - more likely the latter as patient has 3+ B/L pitting edema and no wheezing on lung ascultation. Will obtain labs, VBG, BNP, Troponin. Patient to be placed on BIPAP with Duo-Nebs + Steroids. 05/05/17 13:34 Patient saturating 100% on 50% FIO2 --> will decreased FIO2 to 30% to not blunt respiratory drive. VBG shows pH 7.22, CO2 > 80 suggestive of COPD exacerbation. BNP 8000 markedly elevated from previous reading of 796 in 2016 - possible concomitant CHF exacerbation. Lactic Acid 5.1 - likely 2/2 to hypoperfusion - no other signs of sepsis including hypotension, elevated RR, temp. Will obtain FOBT to evaluate for Hb 9 (14 in 09/2016). EKG shows NSR with HR 63, normal axis/intervals, possible RBB in leads V1-V3. 05/05/17 16:12 FOBT card unreadable. Patient refusing 2nd FOBT. Patient's @ bedside counseled on plan of care. Notes patient was being transferred between [facility] and doctor's office yesterday at which time his O2 tank was empty -- possible hypoxia inducing exacerbation. SpO2 92-97% on BiPap. Patient transferred to ICU for further evaluation and care. *DC/Admit/Observation/Transfer Diagnosis at time of Disposition: Shortness of breath - Referrals - Patient Instructions - Post Discharge Activity
[2017-05-05] MEDS ORDERED: methylPREDNISolone NA SUCC 125 MG/2 ML VIAL ONE (11:31)
[2017-05-05] MEDS ORDERED: FUROSEMIDE 40 MG/4 ML INJECTABLE VIAL ONE ×2 (11:31→22:02)
[2017-05-05 11:36] LABS: BASO % 0.4 % (0-2.0); EOS % 1.4 % (0-4.5); HEMATOCRIT 31.3 % (35.4-49); LYMPH % 6.1 % (8-40); MCH 25.6 pg (25.7-33.7); MCHC 28.9 g/dl (32.0-35.9); MEAN CELL VOLUME 88.6 fl (80-96); MEAN PLT VOLUME 8.3 fl (7.5-11.1); MONO % 10.3 % (3.8-10.2); NEUT % 81.8 % (42.8-82.8); PLATELET COUNT 145 K/MM3 (134-434); RBC 3.53 M/mm3 (4.00-5.60); WHITE BLOOD COUNT 7.6 K/mm3 (4.0-10.0)
--- NOTE | 2017-05-05 11:36 | EKG ---
Test Reason : Blood Pressure : / mmHG Vent. Rate : 063 BPM Atrial Rate : 063 BPM P-R Int : 190 ms QRS Dur : 150 ms QT Int : 442 ms P-R-T Axes : -20 004 019 degrees QTc Int : 452 ms NORMAL SINUS RHYTHM RIGHT BUNDLE BRANCH BLOCK T WAVE ABNORMALITY, CONSIDER INFEROLATERAL ISCHEMIA ABNORMAL ECG WHEN COMPARED WITH ECG OF 22-SEP-2016 18:15, SINUS RHYTHM HAS REPLACED WIDE QRS RHYTHM Confirmed by MD EVA, DAVE ([id number]) on 05/05/2017 11:36:24 AM Referred By: Confirmed By:DAVE VELASQUEZ MD
[2017-05-05 11:38] LABS: VENOUS PC02 81.9 mmHg (38-52); VENOUS PH 7.22 (7.32-7.42); VENOUS PO2 24.2 mmHg (28-48)
[2017-05-05] MEDS ORDERED: AZITHROMYCIN IVPB 500 MG in DEXTROSE 5%-WATER - 250 ML IVPB ONE (11:57)
[2017-05-05 11:58] LABS: ALBUMIN 3.2 g/dl (3.4-5.0); ANION GAP 8 (8-16); BILIRUBIN,TOTAL 0.7 mg/dL (0.2-1.0); BLOOD UREA NITROGEN 44 mg/dL (7-18); CALCIUM 9.6 mg/dL (8.5-10.1); CHLORIDE 95 mmol/L (98-107); CO2 35 mmol/L (21-32); CREATININE 2.3 mg/dL (0.7-1.3); GLUCOSE,RANDOM 103 mg/dL (74-106); POTASSIUM 5.1 mmol/L (3.5-5.1); SGOT/AST 44 U/L (15-37); SGPT/ALT 41 U/L (12-78); SODIUM 138 mmol/L (136-145); TOT PROT 7.2 g/dl (6.4-8.2)
[2017-05-05 12:01] LABS: ACTIVATED PTT 34.7 SECONDS (26.9-34.4); ALK PHOS 76 U/L (45-117); N-TERMINAL BNP 8105.63 pg/ml (5-125)
[2017-05-05] MEDS ORDERED: AZITHROMYCIN IVPB 250 ML IVPB ONE (12:03)
[2017-05-05 12:06] LABS: URINE APPEARANCE SLCLOUDY; URINE BILIRUBIN NEGATIVE (NEGATIVE); URINE BLOOD 1+ (NEGATIVE); URINE COLOR YELLOW; URINE GLUCOSE (UA) NEGATIVE (NEGATIVE); URINE KETONE NEGATIVE (NEGATIVE); URINE LEUK ESTERASE NEGATIVE (NEGATIVE); URINE NITRITE NEGATIVE (NEGATIVE)
[2017-05-05 12:22] LABS: INR 4.6 (0.82-1.09)
[2017-05-05] MEDS ORDERED: SODIUM CHLORIDE 0.9% 1000 ML INFUS.BAG IV ONE (12:25)
[2017-05-05 12:38] LABS: URINE PROTEIN 1+ (NEGATIVE)
[2017-05-05 12:48] LABS: URINE HYALINE CAST 34 /lpf; URINE MUCUS RARE
[2017-05-05] MEDS ORDERED: ACETAMINOPHEN 1000 MG/100 ML VIAL (NON FORMULARY) IVPB ONE (13:33)
[2017-05-05] MEDS ORDERED: ALBUTEROL SO4 0.083% IH SOL 2.5 MG/3 ML VIAL.NEB. NEB ONE (13:37)
[2017-05-05] MEDS ORDERED: ACETAMINOPHEN INJECTION 100 ML IVPB ONE (13:43)
[2017-05-05 14:28] LABS: VENOUS PC02 81.5 mmHg (38-52); VENOUS PH 7.27 (7.32-7.42); VENOUS PO2 29.9 mmHg (28-48)
--- NOTE | 2017-05-05 20:50 | CONSULT ---
Consult Consult Specialty:: PULM/CCM Referred by:: Dr. Kimani Hein Reason for Consultation:: Resp Fail - History of Present Illness Chief Complaint: Resp Fail History of Present Illness: Mr. Vasquez is a 72 y/o man w/ COPD (on 2-3 L @ baseline), CHF, Afib (on Warfarin), h/o DVT (on Warfarin), & PVD, BIBA from [facility] w/ SOB. At presentation pt c/o dyspnea which he states has been "going on for a while" and denies any CP. 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 Angelina Franklin [phone]) pt was in his USOH this AM, then @ 0915Hrs the pt became unresponsive in front of a transporter --> rescue breaths adminstered via BMV, 911 was called & the pt was given BMV and then became responsive. Chest Compressions were NEVER performed. EMS notes patient was hypertensive (SBP 180's) and Hypoxic (SpO2 80's) en route to the ED. In the ED: VBG pH 7.22, CO2 >80, c/w acute COPD exacerbation, BNP 8000 (markedly elevated from prior), LA = 5, likely hypoperfusion 2/2 HF. Pt Tx' ed w/ Nebs, Steroids, Lasix & Bi-Level. Pt admitted now to the ICU for Resp Fail. 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, Seizure Cardio/Vascular: Yes: CAD, CHF, HTN, Hyperlipdemia, Pulmonary Hypertension Pulmonary: Yes: COPD, Other (CB pulmonary nodule on CT 03/28/14) Gastrointestinal: Yes: GERD, GI Bleed - Alcohol/Substance Use Hx Alcohol Use: No - Smoking History Smoking history: Unknown if ever smoked Have you smoked in the past 12 months: No Aproximately how many cigarettes per day: 0 If you are a former smoker, when did you quit?: 2002 - Social History Usual Living Arrangement: [facility] History of Recent Travel: No Home Medications - Allergies Allergies/Adverse Reactions: Allergies Allergy/AdvReac Type Severity Reaction Status Date / Time No Known Allergies Allergy Verified 05/05/17 12:05 - Home Medications Home Medications: Ambulatory Orders Acetaminophen 650 mg PO Q8H PRN 05/05/17 Aclidinium [place] [Tudorza Pressair] 1 inh IH Q12H 05/05/17 Albuterol 0.083% Nebulizer Lyubov [Ventolin 0.083% Nebulizer Soln -] 1 neb NEB Q6H 05/05/17 Amlodipine Besylate 5 mg PO DAILY 05/05/17 Aspirin [Aspirin EC] 81 mg PO DAILY 05/05/17 Atorvastatin Ca [Lipitor] 20 mg PO HS 05/05/17 Baclofen 10 mg PO BID 05/05/17 Chlorpheniramine/Dextromethorp [Robitussin Long-Acting Liq] 10 ml PO Q6H PRN Citalopram Hydrobromide [Celexa -] 10 mg PO DAILY 05/05/17 Diclofenac Sodium [Voltaren] 2 gm TP QID PRN 05/05/17 Docusate Sodium 300 mg PO HS 05/05/17 Ergocalciferol [Drisdol Oral Solution -] 50,000 units PO FR 05/05/17 Fluticasone Propionate [Flovent Hfa] 1 inh IH BID 05/05/17 Folic Acid 1 mg PO DAILY 05/05/17 Furosemide [Lasix -] 40 mg PO DAILY 05/05/17 Gabapentin 300 mg PO BID 05/05/17 Levetiracetam 750 mg PO BID 05/05/17 Levofloxacin [Levaquin] 500 mg PO DAILY 05/05/17 Mineral Oil/Petrolatum,White [Artificial Tears Eye Ointment] 1 drop OU BID 05/05 Oxycodone HCl 5 mg PO Q8H PRN 05/05/17 Polyethylene Glycol 3350 [Clearlax] 17 gm PO DAILY 05/05/17 Prednisone 5 mg PO DAILY 05/05/17 Ranitidine HCl [Zantac] 150 mg PO HS 05/05/17 Sodium Chloride [Saline Mist] 2 spray NS Q6H 05/05/17 Sotalol HCl [Betapace -] 80 mg PO DAILY 05/05/17 Tamsulosin HCl 0.4 mg PO DAILY 05/05/17 Thiamine HCl [Vitamin B1] 100 mg PO DAILY 05/05/17 Warfarin Na [Coumadin] 7 mg PO DAILY 05/05/17 Family Disease History - Family Disease History Family History: Unable to Obtain (Obtunded) Review of Systems Unable to obtain ROS, reason: Obtunded Physical Exam Vital Signs: Vital Signs Temperature Pulse Rate 62 05/05/17 18:15 Respiratory Rate 16 05/05/17 14:58 Blood Pressure 114/50 05/05/17 14:58 O2 Sat by Pulse Oximetry (%) 100 05/05/17 20:33 Intake & Output 05/02/17 05/03/17 05/04/17 05/05/17 23:59 23:59 23:59 23:59 Weight 97.522 kg Constitutional: Yes: Well Nourished, Moderate Distress Eyes: Yes: WNL, Conjunctiva Clear, EOM Intact HENT: Yes: WNL, Atraumatic Neck: Yes: WNL, Trachea Midline, Decreased ROM Cardiovascular: Yes: WNL, Regular Rate and Rhythm Respiratory: Yes: Diminished Gastrointestinal: Yes: WNL, Normal Bowel Sounds, Soft ...Rectal Exam: Yes: Deferred Renal/: Yes: WNL Breast(s): Yes: WNL Extremities: Yes: WNL Edema: Yes Edema: LUE: 2+, RUE: 2+, LLE: 2+, RLE: 3+ Peripheral Pulses WNL: Yes Neurological: Yes: Lethargy Psychiatric: Yes: Other (Lethargic) Labs: CBC, BMP 05/05/17 11:30 05/05/17 11:30 Troponin, BNP 05/05/17 05/05/17 11:22 11:30 Troponin I Cancelled 0.02 B-Natriuretic Peptide Cancelled 8105.63 H Imaging - Results Chest X-ray: Report Reviewed (CXR 05/05: Since 09/22/2016, again noted is the large heart with sclerotic unfolded aorta, well expanded lung alston and slight elevation of the left hemidiaphragm which could represent a focal eventration. This was present in the prior study of 09/22/2016. Correlation recommended. Impression: No acute pathology. No significant change since prior study of 09/22/2016.) EKG: Image Reviewed (12 LEAD 05/05: RSR in the 60's w/o ect, RBB, flipped T's in V1, V2, V3, V4, V5, & V6 c/f inferolateral ischemia.) Other: Report Reviewed (R LE DUPLEX 08/15: Impression: There is no evidence of deep venous thromboses in the right lower extremity.) Problem List - Problems (1) Acute on chronic diastolic (congestive) heart failure Code(s): I50.33 - ACUTE ON CHRONIC DIASTOLIC (CONGESTIVE) HEART FAILURE (2) Shortness of breath Code(s): R06.02 - SHORTNESS OF BREATH (3) Acute on chronic respiratory failure with hypoxia and hypercapnia Code(s): J96.21 - ACUTE AND CHRONIC RESPIRATORY FAILURE WITH HYPOXIA; J96.22 - ACUTE AND CHRONIC RESPIRATORY FAILURE WITH HYPERCAPNIA (4) COPD (chronic obstructive pulmonary disease) Code(s): J44.9 - CHRONIC OBSTRUCTIVE PULMONARY DISEASE, UNSPECIFIED (5) Chronic hypercapnic respiratory failure Code(s): J96.12 - CHRONIC RESPIRATORY FAILURE WITH HYPERCAPNIA (6) HTN (hypertension) Code(s): I10 - ESSENTIAL (PRIMARY) HYPERTENSION Assessment/Plan ASSESS: This is a is a 72 y/o man w/ COPD (on 2-3 L @ baseline), CHF, Afib (on Warfarin), h/o DVT (on Warfarin), & PVD admitted now w/ hypercap/hypox resp Fail. PLAN: -FiO2 for an SpO2 > 92% -Nebs -Steroids -Azith -Attempt Bi-Level Suport -Increase the delta in an attempt to maximize ventillation -Strict I's & O's -Daily Weight -Trend BUN/Cr -Replete e-lytes -Diurese -Trend ABG, LA, & BNP -Intubate prn -Maintain Active T & S (Hgb seems to be sliding but no s/o bleed) -On syst AC -SCDs -PPI (Resp Fail) -DNR/DNI DGL, ACNP-AC [facility] ICU PULM/CCM 4436 Critical Care Time/MDM Note Total Critical Care Time: 45 Critical Care Statement: The care of this patient involved high complexity decision making to prevent further life threatening deterioration of the patient 's condition and/or to evaluate & treat vital organ system(s) failure or risk of failure.
[2017-05-05] MEDS ORDERED: FUROSEMIDE INJECTION 100 MG in DEXTROSE 5%-WATER - 90 ML IVPB SCH (21:00)
[2017-05-05] MEDS ORDERED: FUROSEMIDE INJECTION 100 MG in SODIUM CHLORIDE 90 ML IVPB SCH (21:00)
[2017-05-05 21:41] LABS: ARTERIAL BLD GAS O2 SATURATION 97.7 % (90-98.9); ARTERIAL BLOOD GAS pH 7.29 (7.35-7.45)
[2017-05-05 21:44] LABS: ALLENS TEST POSITIVE
[2017-05-05 21:47] LABS: ARTERIAL BLOOD GAS BASE EXCESS 8.8 meq/l (-2-2)
[2017-05-05 21:51] LABS: ARTERIAL BLOOD GAS PCO2 78.3 mmHg (35-45)
[2017-05-05] MEDS: methylPREDNISolone NA SUCC 40 MG/1 ML VIAL IVPUSH SCH (22:38)
[2017-05-06] MEDS: methylPREDNISolone NA SUCC 40 MG/1 ML VIAL IVPUSH SCH ×4 (04:00→22:16)
[2017-05-06 07:11] LABS: ARTERIAL BLOOD GAS pH 7.36 (7.35-7.45)
[2017-05-06 07:22] LABS: ALLENS TEST POSITIVE; ARTERIAL BLOOD GAS BASE EXCESS 10.9 meq/l (-2-2)
[2017-05-06 08:15] LABS: HEMATOCRIT 30.2 % (35.4-49); MCH 25.8 pg (25.7-33.7); MCHC 29.8 g/dl (32.0-35.9); MEAN CELL VOLUME 86.6 fl (80-96); MEAN PLT VOLUME 8.2 fl (7.5-11.1); PLATELET COUNT 153 K/MM3 (134-434); RBC 3.49 M/mm3 (4.00-5.60); RDW 18.7 % (11.9-15.9); WHITE BLOOD COUNT 4.5 K/mm3 (4.0-10.0)
[2017-05-06 08:30] LABS: PROTHROMBIN TIME (PATIENT) 54.6 SEC (9.98-11.88)
[2017-05-06 08:42] LABS: INR 4.83 (0.82-1.09)
[2017-05-06 08:51] LABS: CHLORIDE 95 mmol/L (98-107); POTASSIUM 4.5 mmol/L (3.5-5.1); SODIUM 139 mmol/L (136-145)
[2017-05-06 08:58] LABS: ALBUMIN 3.3 g/dl (3.4-5.0); ALK PHOS 70 U/L (45-117); ANION GAP 4 (8-16); BILIRUBIN,TOTAL 0.8 mg/dL (0.2-1.0); BLOOD UREA NITROGEN 45 mg/dL (7-18); CO2 40 mmol/L (21-32); CREATININE 1.9 mg/dL (0.7-1.3); GLUCOSE,RANDOM 117 mg/dL (74-106); SGOT/AST 44 U/L (15-37); SGPT/ALT 49 U/L (12-78)
--- NOTE | 2017-05-06 09:25 | PN ---
Physical Exam: SUBJECTIVE: Patient seen and examined The patient is a 72 year old male with a history of COPD, CHF, afib (on warfarin ), DVT (on warfarin), PVD who presented for respiratory distress and COPD exacerbation vs. CHF exacerbation admitted to the ICU for acute respiratory failure. The patient was placed on bipap and has been doing well. He reports continue difficulty breathing, but notes that it is much improved on bipap. Otherwise no acute events. OBJECTIVE: Vital Signs Period Temp Pulse Resp BP Sys/Hsu Pulse Ox Last 24 Hr 97.8 F-98.6 F 57-65 14-22 112-143/50-82 98-100 GENERAL: The patient is awake, alert, and fully oriented, in no acute distress. HEAD: Normal with no signs of trauma. EYES: sclera anicteric, conjunctiva clear. No ptosis. ENT: oropharynx clear without exudates, moist mucous membranes. NECK: Trachea midline, full range of motion, supple. LUNGS: Breath sounds equal, clear to auscultation bilaterally, no wheezes, no crackles, no accessory muscle use. HEART: Regular rate and rhythm, S1, S2 without murmur, rub or gallop. ABDOMEN: Soft, nontender, nondistended, normoactive bowel sounds, no guarding, no rebound, no hepatosplenomegaly, no masses. EXTREMITIES: 2+ pulses, warm, well-perfused. NEUROLOGICAL: Normal speech, gait not observed. PSYCH: Normal mood, normal affect. SKIN: Warm, dry, normal turgor, no rashes or lesions noted Laboratory Results - last 24 hr 05/05/17 05/05/17 05/05/17 11:22 11:30 11:30 WBC 7.6 RBC 3.53 L D Hgb 9.0 L D Hct 31.3 L D MCV 88.6 MCH 25.6 L D MCHC 28.9 L RDW 19.0 H D Plt Count 145 MPV 8.3 D Neutrophils % 81.8 Lymphocytes % 6.1 L Monocytes % 10.3 H Eosinophils % 1.4 D Basophils % 0.4 D PT with INR 52.00 H INR 4.60 H* D PTT (Actin FS) 34.7 H Anticoagulation Therapy Puncture Site ABG pH ABG pCO2 at Pt Temp ABG pO2 at Pt Temp ABG HCO3 ABG O2 Sat (Measured) ABG O2 Content ABG Base Excess Vinnie Test VBG pH POC VBG pCO2 POC VBG pO2 Mixed VBG HCO3 O2 Delivery Device Oxygen Flow Rate Vent Mode Vent Rate Mechanical Rate PEEP Pressure Support Vent Sodium Potassium Chloride Carbon Dioxide Anion Gap BUN Creatinine Creat Clearance w eGFR Random Glucose Lactic Acid Calcium Total Bilirubin AST ALT Alkaline Phosphatase Creatine Kinase Cancelled Troponin I Cancelled B-Natriuretic Peptide Cancelled Total Protein Albumin Urine Color Urine Appearance Urine pH Ur Specific [place] Urine Protein Urine Glucose (UA) Urine Ketones Urine Blood Urine Nitrite Urine Bilirubin Urine Urobilinogen Ur Leukocyte Esterase Urine WBC (Auto) Urine RBC (Auto) Hyaline Casts Urine Mucus Stool Occult Blood Blood Type Antibody Screen 05/05/17 05/05/17 05/05/17 11:30 11:30 11:30 WBC RBC Hgb Hct MCV MCH MCHC RDW Plt Count MPV Neutrophils % Lymphocytes % Monocytes % Eosinophils % Basophils % PT with INR INR PTT (Actin FS) Anticoagulation Therapy Puncture Site ABG pH ABG pCO2 at Pt Temp ABG pO2 at Pt Temp ABG HCO3 ABG O2 Sat (Measured) ABG O2 Content ABG Base Excess Vinnie Test VBG pH 7.22 L* POC VBG pCO2 81.9 H* D POC VBG pO2 24.2 L Mixed VBG HCO3 32.4 H O2 Delivery Device Oxygen Flow Rate Vent Mode Vent Rate Mechanical Rate PEEP Pressure Support Vent Sodium 138 Potassium 5.1 Chloride 95 L Carbon Dioxide 35 H Anion Gap 8 BUN 44 H Creatinine 2.3 H D Creat Clearance w eGFR 28.09 Random Glucose 103 Lactic Acid 5.1 H* Calcium 9.6 Total Bilirubin 0.7 AST 44 H ALT 41 D Alkaline Phosphatase 76 D Creatine Kinase 49 Troponin I 0.02 B-Natriuretic Peptide 8105.63 H Total Protein 7.2 Albumin 3.2 L Urine Color Urine Appearance Urine pH Ur Specific [place] Urine Protein Urine Glucose (UA) Urine Ketones Urine Blood Urine Nitrite Urine Bilirubin Urine Urobilinogen Ur Leukocyte Esterase Urine WBC (Auto) Urine RBC (Auto) Hyaline Casts Urine Mucus Stool Occult Blood Blood Type Antibody Screen 05/05/17 05/05/17 05/05/17 11:30 11:50 14:20 WBC RBC Hgb Hct MCV MCH MCHC RDW Plt Count MPV Neutrophils % Lymphocytes % Monocytes % Eosinophils % Basophils % PT with INR INR PTT (Actin FS) Anticoagulation Therapy Puncture Site ABG pH ABG pCO2 at Pt Temp ABG pO2 at Pt Temp ABG HCO3 ABG O2 Sat (Measured) ABG O2 Content ABG Base Excess Vinnie Test VBG pH 7.27 L POC VBG pCO2 81.5 H* POC VBG pO2 29.9 D Mixed VBG HCO3 36.6 H O2 Delivery Device Oxygen Flow Rate Vent Mode Vent Rate Mechanical Rate PEEP Pressure Support Vent Sodium Potassium Chloride Carbon Dioxide Anion Gap BUN Creatinine Creat Clearance w eGFR Random Glucose Lactic Acid Calcium Total Bilirubin AST ALT Alkaline Phosphatase Creatine Kinase Troponin I B-Natriuretic Peptide Total Protein Albumin Urine Color Yellow Urine Appearance Slcloudy Urine pH 5.0 Ur Specific [place] 1.012 Urine Protein 1+ H Urine Glucose (UA) Negative Urine Ketones Negative Urine Blood 1+ H Urine Nitrite Negative Urine Bilirubin Negative Urine Urobilinogen 2.0 Ur Leukocyte Esterase Negative Urine WBC (Auto) 5 Urine RBC (Auto) 1 Hyaline Casts 34 Urine Mucus Rare Stool Occult Blood Blood Type O POSITIVE Antibody Screen Negative 05/05/17 05/05/17 05/05/17 14:30 16:24 21:20 WBC RBC Hgb Hct MCV MCH MCHC RDW Plt Count MPV Neutrophils % Lymphocytes % Monocytes % Eosinophils % Basophils % PT with INR INR PTT (Actin FS) Anticoagulation Therapy No Result Required. Puncture Site Left radial ABG pH 7.29 L ABG pCO2 at Pt Temp 78.3 H* D ABG pO2 at Pt Temp 113.0 H D ABG HCO3 36.7 H ABG O2 Sat (Measured) 97.7 ABG O2 Content 12.2 L ABG Base Excess 8.8 H Vinnie Test Positive VBG pH POC VBG pCO2 POC VBG pO2 Mixed VBG HCO3 O2 Delivery Device Bipap Oxygen Flow Rate 70% Vent Mode S/t Vent Rate 14 Mechanical Rate No Result Required. PEEP 5.0 Pressure Support Vent 10 Sodium Potassium Chloride Carbon Dioxide Anion Gap BUN Creatinine Creat Clearance w eGFR Random Glucose Lactic Acid 1.9 Calcium Total Bilirubin AST ALT Alkaline Phosphatase Creatine Kinase Troponin I B-Natriuretic Peptide Total Protein Albumin Urine Color Urine Appearance Urine pH Ur Specific [place] Urine Protein Urine Glucose (UA) Urine Ketones Urine Blood Urine Nitrite Urine Bilirubin Urine Urobilinogen Ur Leukocyte Esterase Urine WBC (Auto) Urine RBC (Auto) Hyaline Casts Urine Mucus Stool Occult Blood Cancelled Blood Type Antibody Screen 05/06/17 05/06/17 05/06/17 06:41 08:00 08:00 WBC 4.5 D RBC 3.49 L Hgb 9.0 L Hct 30.2 L MCV 86.6 MCH 25.8 MCHC 29.8 L RDW 18.7 H Plt Count 153 MPV 8.2 Neutrophils % Lymphocytes % Monocytes % Eosinophils % Basophils % PT with INR 54.60 H INR 4.83 H* PTT (Actin FS) 43.0 H Anticoagulation Therapy No Result Required. Puncture Site Left radial ABG pH 7.36 ABG pCO2 at Pt Temp 69.0 H* ABG pO2 at Pt Temp 155.0 H* D ABG HCO3 37.8 H ABG O2 Sat (Measured) 99.0 H ABG O2 Content 155.0 H ABG Base Excess 10.9 H Vinnie Test Positive VBG pH POC VBG pCO2 POC VBG pO2 Mixed VBG HCO3 O2 Delivery Device Bipap Oxygen Flow Rate 70% Vent Mode No Result Required. Vent Rate 14 Mechanical Rate No Result Required. PEEP 5.0 Pressure Support Vent 14 Sodium Potassium Chloride Carbon Dioxide Anion Gap BUN Creatinine Creat Clearance w eGFR Random Glucose Lactic Acid Calcium Total Bilirubin AST ALT Alkaline Phosphatase Creatine Kinase Troponin I B-Natriuretic Peptide Total Protein Albumin Urine Color Urine Appearance Urine pH Ur Specific [place] Urine Protein Urine Glucose (UA) Urine Ketones Urine Blood Urine Nitrite Urine Bilirubin Urine Urobilinogen Ur Leukocyte Esterase Urine WBC (Auto) Urine RBC (Auto) Hyaline Casts Urine Mucus Stool Occult Blood Blood Type Antibody Screen 05/06/17 08:00 WBC RBC Hgb Hct MCV MCH MCHC RDW Plt Count MPV Neutrophils % Lymphocytes % Monocytes % Eosinophils % Basophils % PT with INR INR PTT (Actin FS) Anticoagulation Therapy Puncture Site ABG pH ABG pCO2 at Pt Temp ABG pO2 at Pt Temp ABG HCO3 ABG O2 Sat (Measured) ABG O2 Content ABG Base Excess Vinnie Test VBG pH POC VBG pCO2 POC VBG pO2 Mixed VBG HCO3 O2 Delivery Device Oxygen Flow Rate Vent Mode Vent Rate Mechanical Rate PEEP Pressure Support Vent Sodium 139 Potassium 4.5 Chloride 95 L Carbon Dioxide 40 H Anion Gap 4 L BUN 45 H Creatinine 1.9 H Creat Clearance w eGFR 35.02 Random Glucose 117 H Lactic Acid Calcium 9.0 Total Bilirubin 0.8 AST 44 H ALT 49 Alkaline Phosphatase 70 Creatine Kinase Troponin I B-Natriuretic Peptide Total Protein 7.0 Albumin 3.3 L Urine Color Urine Appearance Urine pH Ur Specific [place] Urine Protein Urine Glucose (UA) Urine Ketones Urine Blood Urine Nitrite Urine Bilirubin Urine Urobilinogen Ur Leukocyte Esterase Urine WBC (Auto) Urine RBC (Auto) Hyaline Casts Urine Mucus Stool Occult Blood Blood Type Antibody Screen Active Medications Generic Name Dose Route Start Last Admin Trade Name Pj PRN Reason Stop Dose Admin Furosemide 100 mg/ Sodium 100 mls @ 5 mls/hr 05/05/17 21:00 05/05/17 22:00 Chloride IVPB 5 mg/hr ASDIR MARK 5 mls/hr Protocol Administration 5 MG/HR Methylprednisolone Sodium Succinate 40 mg 05/05/17 21:00 05/06/17 04:00 Solu-Medrol - IVPUSH 40 mg Q6H-IV MARK Administration ASSESSMENT/PLAN: The patient is a 72 year old male with a history of COPD, CHF, afib (on warfarin ), DVT (on warfarin), PVD who presented for respiratory distress and COPD exacerbation vs. CHF exacerbation admitted to the ICU for acute respiratory failure. NEURO Patient is alert and oriented x3 No issues currently. -Will continue to monitor. CV #CHF -Continue Lasix 40mg bid at this time -Will continue to monitor. RESP #Respiratory distress The patient presented with respiratory distress likely due to a COPD exacerbation and his respiratory status improved after being placed on bipap. The patient continues to improve clinically on bipap and is maintaining good O2 saturations one continues bipap. -Continue Bipap at this time and wean as tolerated. Will trial the patient off bipap. -Continue scheduled duonebs. -Continue lasix 40mg bid. -Continue solu-medrol. GI No Issues currently. Heme #Supratherapuetic INR -Will continue to monitor. Renal No issues currently. -Will continue to monitor. ID No issues currently. -Will continue to monitor. MSK No issues currently FEN/GI -Replete electrolytes PRN, will monitor PPX DISPO: Stable for transfer to tele floor monitoring. Visit type - Emergency Visit Emergency Visit: No - New Patient This patient is new to me today: Yes Date on this admission: 05/06/17 - Critical Care Critical Care patient: Yes Total Critical Care Time (in minutes): 35 Critical Care Statement: The care of this patient involved high complexity decision making to prevent further life threatening deterioration of the patient 's condition and/or to evaluate & treat vital organ system(s) failure or risk of failure.
[2017-05-06] MEDS ORDERED: ALBUTEROL SO4 2.5/IPRATROPIUM 0.5 INH SOL 3 ML VIAL.NEB. NEB PRN (12:06)
[2017-05-06] MEDS ORDERED: amLODIPine BESYLATE 5 MG TABLET (FP) PO SCH (12:15)
[2017-05-06] MEDS ORDERED: SOTALOL HCL 80 MG TABLET (FP) PO SCH (12:15)
[2017-05-06] MEDS ORDERED: ASPIRIN 81 MG CHEWABLE TABLETS PO SCH (12:15)
--- NOTE | 2017-05-06 12:20 | HP ---
Admitting History and Physical - Primary Care Physician PCP: Kimani Hein - Admission Chief Complaint: hypoxia and unresponsive History of Present Illness: patient is a 72 y.o. male with a PMH of Afib (on Warfarin) COPD (on 2-3 L @ baseline), h/o DVT (on Warfarin), PVD, who presents from [facility] with a c/o respiratory distress. At presentation patient c/o dyspnea which he states has been "going on for a while" and denies any chest pain. 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 Angelina Franklin [phone]) patient was in his usual state of health this morning @ 9:15 a.m. Patient became unresponsive in front of transporter with thready pulse, rescue breaths adminstered via BMV. 911 was called and patient was responsive was given BMV and became responsive. EMS notes patient was hypertensive (SBP 180's) and Hypoxic (SpO2 80's) en route. NKDA PMD: Dr. 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 Cardiovascular: Yes: CAD, CHF, HTN, Hyperlipdemia, Pulmonary Hypertension Pulmonary: Yes: COPD, Other (CB pulmonary nodule on CT 03/28/14) Gastrointestinal: Yes: GERD, GI Bleed - Advance Directives Advance Directives: Yes: DNR - Smoking History Smoking history: Unknown if ever smoked Have you smoked in the past 12 months: No Aproximately how many cigarettes per day: 0 If you are a former smoker, when did you quit?: 2002 - Alcohol/Substance Use Hx Alcohol Use: No - Social History History of Recent Travel: No Home Medications - Allergies Allergies/Adverse Reactions: Allergies Allergy/AdvReac Type Severity Reaction Status Date / Time No Known Allergies Allergy Verified 05/05/17 12:05 - Home Medications Home Medications: Ambulatory Orders Acetaminophen 650 mg PO Q8H PRN 05/05/17 Aclidinium [place] [Tudorza Pressair] 1 inh IH Q12H 05/05/17 Albuterol 0.083% Nebulizer Lyubov [Ventolin 0.083% Nebulizer Soln -] 1 neb NEB Q6H 05/05/17 Amlodipine Besylate 5 mg PO DAILY 05/05/17 Aspirin [Aspirin EC] 81 mg PO DAILY 05/05/17 Atorvastatin Ca [Lipitor] 20 mg PO HS 05/05/17 Baclofen 10 mg PO BID 05/05/17 Chlorpheniramine/Dextromethorp [Robitussin Long-Acting Liq] 10 ml PO Q6H PRN Citalopram Hydrobromide [Celexa -] 10 mg PO DAILY 05/05/17 Diclofenac Sodium [Voltaren] 2 gm TP QID PRN 05/05/17 Docusate Sodium 300 mg PO HS 05/05/17 Ergocalciferol [Drisdol Oral Solution -] 50,000 units PO FR 05/05/17 Fluticasone Propionate [Flovent Hfa] 1 inh IH BID 05/05/17 Folic Acid 1 mg PO DAILY 05/05/17 Furosemide [Lasix -] 40 mg PO DAILY 05/05/17 Gabapentin 300 mg PO BID 05/05/17 Levetiracetam 750 mg PO BID 05/05/17 Levofloxacin [Levaquin] 500 mg PO DAILY 05/05/17 Mineral Oil/Petrolatum,White [Artificial Tears Eye Ointment] 1 drop OU BID 05/05 Oxycodone HCl 5 mg PO Q8H PRN 05/05/17 Polyethylene Glycol 3350 [Clearlax] 17 gm PO DAILY 05/05/17 Prednisone 5 mg PO DAILY 05/05/17 Ranitidine HCl [Zantac] 150 mg PO HS 05/05/17 Sodium Chloride [Saline Mist] 2 spray NS Q6H 05/05/17 Sotalol HCl [Betapace -] 80 mg PO DAILY 05/05/17 Tamsulosin HCl 0.4 mg PO DAILY 05/05/17 Thiamine HCl [Vitamin B1] 100 mg PO DAILY 05/05/17 Warfarin Na [Coumadin] 7 mg PO DAILY 05/05/17 Review of Systems - Review of Systems Respiratory: reports: Cough, SOB Physical Examination Vital Signs: Vital Signs Temperature 98 F 05/06/17 06:00 Pulse Rate 63 05/06/17 08:40 Respiratory Rate 16 05/06/17 09:00 Blood Pressure 143/79 05/06/17 06:00 O2 Sat by Pulse Oximetry (%) 98 05/06/17 11:37 Constitutional: Yes: Calm Cardiovascular: Yes: Regular Rate and Rhythm, Tachycardia, S1, S2 Respiratory: Yes: Diminished, On BiPap Gastrointestinal: Yes: Normal Bowel Sounds, Soft Edema: Yes Neurological: Yes: Alert Labs: CBC, BMP 05/06/17 08:00 05/06/17 08:00 Problem List - Problems (1) Acute on chronic respiratory failure with hypoxia and hypercapnia Assessment/Plan: bipap steroids nebulizers Code(s): J96.21 - ACUTE AND CHRONIC RESPIRATORY FAILURE WITH HYPOXIA; J96.22 - ACUTE AND CHRONIC RESPIRATORY FAILURE WITH HYPERCAPNIA (2) Afib Assessment/Plan: coumadin on hold secondary to supratherapeutic INR sotalol Code(s): I48.91 - UNSPECIFIED ATRIAL FIBRILLATION (3) BPH (benign prostatic hyperplasia) Assessment/Plan: flomax Code(s): N40.0 - BENIGN PROSTATIC HYPERPLASIA WITHOUT LOWER URINRY TRACT SYMP (4) Acute on chronic diastolic (congestive) heart failure Assessment/Plan: I/O lasix iv bid trend BNP Code(s): I50.33 - ACUTE ON CHRONIC DIASTOLIC (CONGESTIVE) HEART FAILURE (5) CVA (cerebral infarction) Assessment/Plan: s/p right hemiparesis baclofen for muscle spasm Code(s): I63.9 - CEREBRAL INFARCTION, UNSPECIFIED
--- NOTE | 2017-05-06 12:40 | PN ---
Teaching Attending Note Name of Resident: Zachary Baires ATTENDING PHYSICIAN STATEMENT I saw and evaluated the patient. I reviewed the resident's note and discussed the case with the resident. I agree with the resident's findings and plan as documented. SUBJECTIVE: Pt seen and examined in the ICU. Remains on BiPAP, saturating well on 70% FiO2. Somnolent but arousable. OBJECTIVE: Last Vital Signs Temp Pulse Resp BP Pulse Ox 98 F 63 16 143/79 98 05/06/17 06:00 05/06/17 08:40 05/06/17 09:00 05/06/17 06:00 05/06/17 11:37 Intake & Output 05/03/17 05/04/17 05/05/17 05/06/17 23:59 23:59 23:59 23:59 Intake Total 50 Output Total 1300 Balance -1250 Weight 97.522 kg 96.343 kg Gen: mildly tachypneic on BiPAP Heart: RRR Lung: bilateral rhonchi Abd: soft, nontender Ext: + dependent edema CBC, BMP 05/06/17 08:00 05/06/17 08:00 Active Medications Albuterol/Ipratropium (Duoneb -) 1 amp NEB Q6H PRN PRN Reason: SHORTNESS OF BREATH Amlodipine Besylate (Norvasc -) 5 mg PO DAILY [facility] Aspirin (Asa -) 81 mg PO DAILY [facility] Atorvastatin Calcium (Lipitor -) 20 mg PO HS [facility] Baclofen (Lioresal -) 10 mg PO BID [facility] Citalopram Hydrobromide (Celexa -) 10 mg PO DAILY [facility] Furosemide (Lasix Injection -) 40 mg IVPUSH BID@0600,1400 [facility] Gabapentin (Neurontin -) 300 mg PO BID [facility] Levetiracetam (Keppra -) 750 mg PO BID [facility] Methylprednisolone Sodium Succinate (Solu-Medrol -) 40 mg IVPUSH Q6H-IV [facility] Last Admin: 05/06/17 10:02 Dose: 40 mg Sotalol HCl (Betapace -) 80 mg PO DAILY [facility] Tamsulosin HCl (Flomax -) 0.4 mg PO DAILY@0830 [facility] ASSESSMENT AND PLAN: Acute on Chronic Hypoxic and Hypercapneic Respiratory Failure Acute on Chronic Diastolic Heart Failure Pulmonary HTN Acute on Chronic Renal Failure Acute COPD Exacerbation Atrial Fibrillation h/o DVT h/o CVA HTN Hyperlipidemia - IV lasix - monitor urine output, creatinine - IV medrol at current dose - inhaled bronchodilators standing and PRN - O2 to keep Spo2 >90% - BiPAP at night and PRN during day - transition to nasal cannula - rate control - continue anticoagulation - resume home BP meds - PO as tolerated - pt DNR/DNI - can monitor on telemetry critical care time spent in reviewing chart, evaluating patient and formulating plan 35 min
[2017-05-06] MEDS ORDERED: FUROSEMIDE 40 MG/4 ML INJECTABLE VIAL IVPUSH SCH (14:00)
[2017-05-06] MEDS: oxyCODONE HCL 5 MG TABLET PO PRN ×2 (14:34→22:17)
[2017-05-06] MEDS ORDERED: CITALOPRAM HYDROBROMIDE 10 MG TABLET (FP) PO SCH (15:00)
[2017-05-06] MEDS: ALBUTEROL SO4 2.5/IPRATROPIUM 0.5 INH SOL 3 ML VIAL.NEB. NEB PRN (16:16)
[2017-05-06] MEDS ORDERED: WARFARIN NA 7.5 MG TABLET (FP) PO SCH (18:00)
[2017-05-06] MEDS: CITALOPRAM HYDROBROMIDE 10 MG TABLET (FP) PO SCH (18:20)
--- NOTE | 2017-05-06 19:05 | CON.CARD ---
Consult Consult Specialty:: Cardiology Referred by:: Dr. Barfield Reason for Consultation:: Hypercapneic respiratory failure - History of Present Illness Chief Complaint: Dyspnea History of Present Illness: 72 yo male with h/o ASHD, angina pectoris, HTN/HCVD, hypercholesterolemia, type 2 DM, CVA with right sided residual deficit, seizure disorder, LV diastolic dysfunction with history of failure, 2-3L home O2- dependent COPD with history of exacerbations and DVT on a/c S/P IVC filter presented for dyspnea, altered sensorium, referable to acute on chronic hypoxic , hypercapneic respiratory failure, started BD, steroids, diuretics and placed on NIPPV with clinical improvement, denies chest pain. - History Source History Provided By: Medical Record Limitations to Obtaining History: Poor Historian - Past Medical History OUTSOLE PARAFFINER: Yes: CVA, Seizure Cardio/Vascular: Yes: CAD, CHF, HTN, Hyperlipdemia, Pulmonary Hypertension Pulmonary: Yes: COPD, Other (CB pulmonary nodule on CT 03/28/14) Gastrointestinal: Yes: GERD, GI Bleed - Alcohol/Substance Use Hx Alcohol Use: No - Smoking History Smoking history: Unknown if ever smoked Have you smoked in the past 12 months: No Aproximately how many cigarettes per day: 0 If you are a former smoker, when did you quit?: 2002 - Social History Usual Living Arrangement: [facility] History of Recent Travel: No Home Medications - Allergies Allergies/Adverse Reactions: Allergies Allergy/AdvReac Type Severity Reaction Status Date / Time No Known Allergies Allergy Verified 05/05/17 12:05 - Home Medications Home Medications: Ambulatory Orders Acetaminophen 650 mg PO Q8H PRN 05/05/17 Aclidinium [place] [Tudorza Pressair] 1 inh IH Q12H 05/05/17 Albuterol 0.083% Nebulizer Lyub[place] [Ventolin 0.083% Nebulizer Soln -] 1 neb NEB Q6H 05/05/17 Amlodipine Besylate 5 mg PO DAILY 05/05/17 Aspirin [Aspirin EC] 81 mg PO DAILY 05/05/17 Atorvastatin Ca [Lipitor] 20 mg PO HS 05/05/17 Baclofen 10 mg PO BID 05/05/17 Chlorpheniramine/Dextromethorp [Robitussin Long-Acting Liq] 10 ml PO Q6H PRN Citalopram Hydrobromide [Celexa -] 10 mg PO DAILY 05/05/17 Diclofenac Sodium [Voltaren] 2 gm TP QID PRN 05/05/17 Docusate Sodium 300 mg PO HS 05/05/17 Ergocalciferol [Drisdol Oral Solution -] 50,000 units PO FR 05/05/17 Fluticasone Propionate [Flovent Hfa] 1 inh IH BID 05/05/17 Folic Acid 1 mg PO DAILY 05/05/17 Furosemide [Lasix -] 40 mg PO DAILY 05/05/17 Gabapentin 300 mg PO BID 05/05/17 Levetiracetam 750 mg PO BID 05/05/17 Levofloxacin [Levaquin] 500 mg PO DAILY 05/05/17 Mineral Oil/Petrolatum,White [Artificial Tears Eye Ointment] 1 drop OU BID 05/05 Oxycodone HCl 5 mg PO Q8H PRN 05/05/17 Polyethylene Glycol 3350 [Clearlax] 17 gm PO DAILY 05/05/17 Prednisone 5 mg PO DAILY 05/05/17 Ranitidine HCl [Zantac] 150 mg PO HS 05/05/17 Sodium Chloride [Saline Mist] 2 spray NS Q6H 05/05/17 Sotalol HCl [Betapace -] 80 mg PO DAILY 05/05/17 Tamsulosin HCl 0.4 mg PO DAILY 05/05/17 Thiamine HCl [Vitamin B1] 100 mg PO DAILY 05/05/17 Warfarin Na [Coumadin] 7 mg PO DAILY 05/05/17 Review of Systems - Review of Systems Cardiovascular: reports: Shortness of Breath Neurological: reports: Confusion Vital Signs: Vital Signs Temperature 98.9 F 05/06/17 15:00 Pulse Rate 62 05/06/17 15:00 Respiratory Rate 20 05/06/17 15:00 Blood Pressure 129/78 05/06/17 15:00 O2 Sat by Pulse Oximetry (%) 97 05/06/17 14:20 Constitutional: Yes: No Distress, Calm, Thin Neck: Yes: Supple Respiratory: Yes: Diminished, On BiPap Gastrointestinal: Yes: Soft, Hypoactive Bowel Sounds Cardiovascular: Yes: Regular Rate and Rhythm JVD: No Carotid Bruit: No Heart Sounds: Yes: S1, S2 Murmur: Yes: Systolic Murmur, Grade 1 Edema: Yes Edema: LLE: Trace, RLE: Trace - Other Data Labs, Other Data: CBC, BMP 05/06/17 08:00 05/06/17 08:00 INR, PTT INR 4.83 (0.82-1.09) H* 05/06/17 08:00 Troponin, BNP 05/06/17 08:00 B-Natriuretic Peptide 8935.99 H Troponin, BNP 05/06/17 08:00 B-Natriuretic Peptide 8935.99 H NSR @ 63 RBBB Echo: Report Reviewed Ejection Fraction %: LVEF > or = 40 % Imaging - Results Chest X-ray: Report Reviewed (NAD) Problem List - Problems (1) Supratherapeutic INR Code(s): R79.1 - ABNORMAL COAGULATION PROFILE (2) Shortness of breath Code(s): R06.02 - SHORTNESS OF BREATH (3) Acute kidney failure Code(s): N17.9 - ACUTE KIDNEY FAILURE, UNSPECIFIED Qualifiers: Acute renal failure type: unspecified Qualified Code(s): N17.9 - Acute kidney failure, unspecified (4) Acute on chronic diastolic (congestive) heart failure Code(s): I50.33 - ACUTE ON CHRONIC DIASTOLIC (CONGESTIVE) HEART FAILURE (5) Acute on chronic respiratory failure with hypoxia and hypercapnia Code(s): J96.21 - ACUTE AND CHRONIC RESPIRATORY FAILURE WITH HYPOXIA; J96.22 - ACUTE AND CHRONIC RESPIRATORY FAILURE WITH HYPERCAPNIA (6) COPD (chronic obstructive pulmonary disease) Code(s): J44.9 - CHRONIC OBSTRUCTIVE PULMONARY DISEASE, UNSPECIFIED Qualifiers: COPD type: COPD with acute exacerbation Qualified Code(s): J44.1 - Chronic obstructive pulmonary disease with (acute) exacerbation (7) CVA (cerebral infarction) Code(s): I63.9 - CEREBRAL INFARCTION, UNSPECIFIED Qualifiers: Cerebral infarction mechanism: unspecified mechanism Qualified Code(s): I63.9 - Cerebral infarction, unspecified (8) Diabetes mellitus Code(s): E11.9 - TYPE 2 DIABETES MELLITUS WITHOUT COMPLICATIONS Qualifiers: Diabetes mellitus type: type 2 Diabetes mellitus complication status: without complication (9) H/O deep venous thrombosis Code(s): Z86.718 - PERSONAL HISTORY OF OTHER VENOUS THROMBOSIS AND EMBOLISM (10) HTN (hypertension) Code(s): I10 - ESSENTIAL (PRIMARY) HYPERTENSION Qualifiers: Hypertension type: essential hypertension Qualified Code(s): I10 - Essential (primary) hypertension (11) Hyperlipidemia Code(s): E78.5 - HYPERLIPIDEMIA, UNSPECIFIED Qualifiers: Hyperlipidemia type: pure hypercholesterolemia Qualified Code(s): E78.00 - Pure hypercholesterolemia, unspecified; E78.0 - Pure hypercholesterolemia (12) PAF (paroxysmal atrial fibrillation) Code(s): I48.0 - PAROXYSMAL ATRIAL FIBRILLATION (13) Pulmonary hypertension Code(s): I27.2 - OTHER SECONDARY PULMONARY HYPERTENSION * DO NOT USE * Assessment/Plan 09/24/2016 Echo: Normal LV size and fxn, mild MR, TR, AR RVSP 40-50 mmHg c/w mod pulm HTN 1. Acute on Chronic Hypoxic and Hypercapneic Respiratory Failure 2. Acute on chronic LV diastolic failure with moderate pulmonary HTN 3. Acute COPD exacerbation 4. CAD angina pectoris 5. PAF currently sinus rhythm with supratherapeutic INR 6. HTN 7. NIDDM 8. Hypercholesterolemia 9. History of CVA with right residual deficit 10. History of Seizure disorder 11. Acute on chronic kidney disease 12. History of GI bleed 13. History of DVT post IVC filter PLAN: 1. Continue Betapace 80 qd and Norvasc 5 qd 2. Continue Lasix 40 IV bid with monitoring diuretic response, renal function and electrolytes 3. Hold Coumadin for INR 2-3, ASA 81 qd 4. Continue Lipitor 20 qhs 5. IV steroid with GI protection, bronchodilators, O2 to maintain saO2>90%, BiPAP at night and PRN during day 6. Pt is DNR/DNI 7. Thank you for consultative opportunity
[2017-05-06] MEDS ORDERED: GABAPENTIN 300 MG CAPSULE (FP) PO SCH (22:00)
[2017-05-06] MEDS ORDERED: levETIRAcetam 500 MG TABLET (FP) PO SCH (22:00)
[2017-05-06] MEDS ORDERED: ATORVASTATIN CA 20 MG TABLET (FP) PO SCH (22:00)
[2017-05-06] MEDS ORDERED: levETIRAcetam 250 MG TABLET (FP) PO ONE (22:13)
[2017-05-06] MEDS ORDERED: levETIRAcetam 500 MG TABLET (FP) PO ONE (22:13)
[2017-05-06] MEDS: GABAPENTIN 300 MG CAPSULE (FP) PO SCH (22:16)
[2017-05-06] MEDS: ATORVASTATIN CA 20 MG TABLET (FP) PO SCH (22:16)
[2017-05-06] MEDS: BACLOFEN 10 MG TABLET (FP) PO SCH (22:17)
[2017-05-07] MEDS: methylPREDNISolone NA SUCC 40 MG/1 ML VIAL IVPUSH SCH ×4 (02:46→22:42)
[2017-05-07] MEDS: FUROSEMIDE 40 MG/4 ML INJECTABLE VIAL IVPUSH SCH ×2 (06:13→14:04)
[2017-05-07 06:58] LABS: ALBUMIN 3.1 g/dl (3.4-5.0); ALK PHOS 64 U/L (45-117); ANION GAP 4 (8-16); BILIRUBIN,TOTAL 0.6 mg/dL (0.2-1.0); BLOOD UREA NITROGEN 51 mg/dL (7-18); CALCIUM 8.9 mg/dL (8.5-10.1); CHLORIDE 96 mmol/L (98-107); CO2 40 mmol/L (21-32); CREATININE 1.7 mg/dL (0.7-1.3); GLUCOSE,RANDOM 113 mg/dL (74-106); PHOSPHOROUS 3.6 mg/dL (2.5-4.9); POTASSIUM 4.6 mmol/L (3.5-5.1); SGOT/AST 24 U/L (15-37); SGPT/ALT 38 U/L (12-78); SODIUM 140 mmol/L (136-145); TOT PROT 6.5 g/dl (6.4-8.2)
[2017-05-07 07:06] LABS: BASO % 0.1 % (0-2.0); HEMATOCRIT 30.5 % (35.4-49); HEMOGLOBIN 8.9 GM/dL (11.7-16.9); MCH 25.4 pg (25.7-33.7); MCHC 29.3 g/dl (32.0-35.9); MEAN CELL VOLUME 86.9 fl (80-96); MONO % 5.2 % (3.8-10.2); NEUT % 88.7 % (42.8-82.8); PLATELET COUNT 159 K/MM3 (134-434); RBC 3.51 M/mm3 (4.00-5.60); RDW 18.7 % (11.9-15.9); WHITE BLOOD COUNT 5.2 K/mm3 (4.0-10.0)
[2017-05-07 07:55] LABS: PROTHROMBIN TIME (PATIENT) 66.2 SEC (9.98-11.88)
[2017-05-07 08:04] LABS: ACTIVATED PTT 44.8 SECONDS (26.9-34.4)
[2017-05-07] MEDS ORDERED: TAMSULOSIN HCL 0.4 MG CAP.ER.24H (FP) PO SCH (08:30)
[2017-05-07 09:02] LABS: INR 5.86 (0.82-1.09)
[2017-05-07] MEDS ORDERED: levETIRAcetam 250 MG TABLET (FP) PO ONE ×2 (09:08→22:19)
[2017-05-07] MEDS ORDERED: levETIRAcetam 500 MG TABLET (FP) PO ONE ×2 (09:08→22:19)
[2017-05-07] MEDS: TAMSULOSIN HCL 0.4 MG CAP.ER.24H (FP) PO SCH (09:20)
[2017-05-07] MEDS: CITALOPRAM HYDROBROMIDE 10 MG TABLET (FP) PO SCH (09:20)
[2017-05-07] MEDS: ASPIRIN 81 MG CHEWABLE TABLETS PO SCH (09:20)
[2017-05-07] MEDS: GABAPENTIN 300 MG CAPSULE (FP) PO SCH ×2 (09:20→22:43)
[2017-05-07] MEDS: SOTALOL HCL 80 MG TABLET (FP) PO SCH (09:20)
[2017-05-07] MEDS: amLODIPine BESYLATE 5 MG TABLET (FP) PO SCH (09:20)
[2017-05-07] MEDS: BACLOFEN 10 MG TABLET (FP) PO SCH ×2 (09:21→22:42)
--- NOTE | 2017-05-07 09:23 | PN ---
Progress Note, Physician - Current Medication List Current Medications: Active Medications Albuterol/Ipratropium (Duoneb -) 1 amp NEB Q6H PRN PRN Reason: SHORTNESS OF BREATH Last Admin: 05/06/17 16:16 Dose: 1 amp Amlodipine Besylate (Norvasc -) 5 mg PO DAILY [facility] Last Admin: 05/07/17 09:20 Dose: 5 mg Aspirin (Asa -) 81 mg PO DAILY [facility] Last Admin: 05/07/17 09:20 Dose: 81 mg Atorvastatin Calcium (Lipitor -) 20 mg PO HS [facility] Last Admin: 05/06/17 22:16 Dose: 20 mg Baclofen (Lioresal -) 10 mg PO BID [facility] Last Admin: 05/07/17 09:21 Dose: 10 mg Citalopram Hydrobromide (Celexa -) 10 mg PO DAILY [facility] Last Admin: 05/07/17 09:20 Dose: 10 mg Furosemide (Lasix Injection -) 40 mg IVPUSH BID@0600,1400 [facility] Last Admin: 05/07/17 06:13 Dose: 40 mg Gabapentin (Neurontin -) 300 mg PO BID [facility] Last Admin: 05/07/17 09:20 Dose: 300 mg Levetiracetam 250 mg/ (Levetiracetam 500 mg) 750 mg PO BID [facility] Last Admin: 05/07/17 09:20 Dose: 750 mg Methylprednisolone Sodium Succinate (Solu-Medrol -) 40 mg IVPUSH Q6H-IV [facility] Last Admin: 05/07/17 09:20 Dose: 40 mg Oxycodone HCl (Roxicodone -) 5 mg PO Q8H PRN PRN Reason: PAIN LEVEL 4 - 6 Last Admin: 05/06/17 22:17 Dose: 5 mg Sotalol HCl (Betapace -) 80 mg PO DAILY [facility] Last Admin: 05/07/17 09:20 Dose: 80 mg Tamsulosin HCl (Flomax -) 0.4 mg PO DAILY@0830 [facility] Last Admin: 05/07/17 09:20 Dose: 0.4 mg - Objective Vital Signs: Vital Signs Temperature 97.7 F 05/07/17 06:00 Pulse Rate 52 L 05/07/17 06:00 Respiratory Rate 20 05/07/17 06:00 Blood Pressure 135/70 05/07/17 06:00 O2 Sat by Pulse Oximetry (%) 95 05/06/17 21:00 Cardiovascular: Yes: S1, S2 Respiratory: Yes: On BiPap Gastrointestinal: Yes: Normal Bowel Sounds, Soft Labs: CBC, BMP 05/07/17 05:05 05/07/17 05:05 INR, PTT INR 5.86 (0.82-1.09) H* 05/07/17 05:05 Assessment/Plan - Problems (1) Acute on chronic respiratory failure with hypoxia and hypercapnia Assessment/Plan: bipap steroids nebulizers Code(s): J96.21 - ACUTE AND CHRONIC RESPIRATORY FAILURE WITH HYPOXIA; J96.22 - ACUTE AND CHRONIC RESPIRATORY FAILURE WITH HYPERCAPNIA (2) Afib Assessment/Plan: coumadin on hold secondary to supratherapeutic INR sotalol Code(s): I48.91 - UNSPECIFIED ATRIAL FIBRILLATION (3) BPH (benign prostatic hyperplasia) Assessment/Plan: flomax Code(s): N40.0 - BENIGN PROSTATIC HYPERPLASIA WITHOUT LOWER URINRY TRACT SYMP (4) Acute on chronic diastolic (congestive) heart failure Assessment/Plan: I/O lasix iv bid trend BNP Code(s): I50.33 - ACUTE ON CHRONIC DIASTOLIC (CONGESTIVE) HEART FAILURE (5) CVA (cerebral infarction) Assessment/Plan: s/p right hemiparesis baclofen for muscle spasm Code(s): I63.9 - CEREBRAL INFARCTION, UNSPECIFIED
--- NOTE | 2017-05-07 11:52 | PN ---
Progress Note, Physician History of Present Illness: PULMONARY COMFORTABLE ON BIPAP,-TACHYPNEA - Current Medication List Current Medications: Active Medications Albuterol/Ipratropium (Duoneb -) 1 amp NEB Q6H PRN PRN Reason: SHORTNESS OF BREATH Last Admin: 05/06/17 16:16 Dose: 1 amp Amlodipine Besylate (Norvasc -) 5 mg PO DAILY [facility] Last Admin: 05/07/17 09:20 Dose: 5 mg Aspirin (Asa -) 81 mg PO DAILY [facility] Last Admin: 05/07/17 09:20 Dose: 81 mg Atorvastatin Calcium (Lipitor -) 20 mg PO HS [facility] Last Admin: 05/06/17 22:16 Dose: 20 mg Baclofen (Lioresal -) 10 mg PO BID [facility] Last Admin: 05/07/17 09:21 Dose: 10 mg Citalopram Hydrobromide (Celexa -) 10 mg PO DAILY [facility] Last Admin: 05/07/17 09:20 Dose: 10 mg Furosemide (Lasix Injection -) 40 mg IVPUSH BID@0600,1400 [facility] Last Admin: 05/07/17 06:13 Dose: 40 mg Gabapentin (Neurontin -) 300 mg PO BID [facility] Last Admin: 05/07/17 09:20 Dose: 300 mg Levetiracetam 250 mg/ (Levetiracetam 500 mg) 750 mg PO BID [facility] Last Admin: 05/07/17 09:20 Dose: 750 mg Methylprednisolone Sodium Succinate (Solu-Medrol -) 40 mg IVPUSH Q6H-IV [facility] Last Admin: 05/07/17 09:20 Dose: 40 mg Oxycodone HCl (Roxicodone -) 5 mg PO Q8H PRN PRN Reason: PAIN LEVEL 4 - 6 Last Admin: 05/06/17 22:17 Dose: 5 mg Sotalol HCl (Betapace -) 80 mg PO DAILY [facility] Last Admin: 05/07/17 09:20 Dose: 80 mg Tamsulosin HCl (Flomax -) 0.4 mg PO DAILY@0830 [facility] Last Admin: 05/07/17 09:20 Dose: 0.4 mg - Objective Vital Signs: Vital Signs Temperature 98.1 F 05/07/17 09:58 Pulse Rate 50 L 05/07/17 09:58 Respiratory Rate 20 05/07/17 09:58 Blood Pressure 137/72 05/07/17 09:58 O2 Sat by Pulse Oximetry (%) 97 05/07/17 09:00 Constitutional: Yes: Well Nourished, Calm Eyes: Yes: WNL HENT: Yes: WNL Neck: Yes: WNL Cardiovascular: Yes: Pulse Irregular, S1, S2 Respiratory: Yes: Wheezes (FEW SCATTERED NICOLE WHEEZES) Gastrointestinal: Yes: Normal Bowel Sounds, Soft Extremities: Yes: WNL Edema: No Labs: CBC, BMP 05/07/17 05:05 05/07/17 05:05 INR, PTT INR 5.86 (0.82-1.09) H* 05/07/17 05:05 - ....Imaging Chest X-ray: Report Reviewed, Image Reviewed (NICOLE EFFUSIONS,MILD CONGESTION) Problem List - Problems (1) Acute on chronic diastolic (congestive) heart failure Code(s): I50.33 - ACUTE ON CHRONIC DIASTOLIC (CONGESTIVE) HEART FAILURE (2) Acute on chronic respiratory failure with hypoxia and hypercapnia Code(s): J96.21 - ACUTE AND CHRONIC RESPIRATORY FAILURE WITH HYPOXIA; J96.22 - ACUTE AND CHRONIC RESPIRATORY FAILURE WITH HYPERCAPNIA (3) Afib Code(s): I48.91 - UNSPECIFIED ATRIAL FIBRILLATION (4) BPH (benign prostatic hyperplasia) Code(s): N40.0 - BENIGN PROSTATIC HYPERPLASIA WITHOUT LOWER URINRY TRACT SYMP (5) CAD (coronary artery disease) Code(s): I25.10 - ATHSCL HEART DISEASE OF [place] CORONARY ARTERY W/O ANG PCTRS Qualifiers: (6) CHF (congestive heart failure) Code(s): I50.9 - HEART FAILURE, UNSPECIFIED Qualifiers: (7) Diabetes mellitus Code(s): E11.9 - TYPE 2 DIABETES MELLITUS WITHOUT COMPLICATIONS Qualifiers: Diabetes mellitus type: type 2 Diabetes mellitus complication status: without complication (8) H/O deep venous thrombosis Code(s): Z86.718 - PERSONAL HISTORY OF OTHER VENOUS THROMBOSIS AND EMBOLISM (9) PAF (paroxysmal atrial fibrillation) Code(s): I48.0 - PAROXYSMAL ATRIAL FIBRILLATION (10) Pulmonary hypertension Code(s): I27.2 - OTHER SECONDARY PULMONARY HYPERTENSION * DO NOT USE * Assessment/Plan ASSESSMENT AND PLAN: Acute on Chronic Hypoxic and Hypercapneic Respiratory Failure Acute on Chronic Diastolic Heart Failure Pulmonary HTN Acute on Chronic Renal Failure Acute COPD Exacerbation Atrial Fibrillation h/o DVT h/o CVA HTN Hyperlipidemia - IV lasix - monitor urine output, creatinine - IV medrol at current dose - inhaled bronchodilators standing and PRN - O2 to keep Spo2 >90% - BiPAP at night and PRN during day - transition to nasal cannula as tolerated - rate control - continue anticoagulation - PO as tolerated - pt DNR/DNI DR WHITING
--- NOTE | 2017-05-07 14:32 | PN ---
Progress Note (short form) - Note Progress Note: Chief Complaint: Events noted, notes reviewed, continues to report persistent dyspnea, reporting right sided chest pain, asymptomatic sinus bradycardia noted History of Present Illness: Seen and examined on telemetry. Events noted, notes reviewed, continues to report persistent dyspnea, reporting right sided chest pain, asymptomatic sinus bradycardia noted Echocardiography dated 06/22/2015 revealed Normal LV size and function, moderate Bi-atrial enlargement, mod TR, mild MR and AR with RVSP of > 60 mmHg - Current Medication List Current Medications Albuterol/Ipratropium (Duoneb -) 1 amp NEB Q6H PRN PRN Reason: SHORTNESS OF BREATH Last Admin: 05/06/17 16:16 Dose: 1 amp Amlodipine Besylate (Norvasc -) 5 mg PO DAILY [facility] Last Admin: 05/07/17 09:20 Dose: 5 mg Aspirin (Asa -) 81 mg PO DAILY [facility] Last Admin: 05/07/17 09:20 Dose: 81 mg Atorvastatin Calcium (Lipitor -) 20 mg PO HS [facility] Last Admin: 05/06/17 22:16 Dose: 20 mg Baclofen (Lioresal -) 10 mg PO BID [facility] Last Admin: 05/07/17 09:21 Dose: 10 mg Citalopram Hydrobromide (Celexa -) 10 mg PO DAILY [facility] Last Admin: 05/07/17 09:20 Dose: 10 mg Furosemide (Lasix Injection -) 40 mg IVPUSH BID@0600,1400 [facility] Last Admin: 05/07/17 14:04 Dose: 40 mg Gabapentin (Neurontin -) 300 mg PO BID [facility] Last Admin: 05/07/17 09:20 Dose: 300 mg Levetiracetam 250 mg/ (Levetiracetam 500 mg) 750 mg PO BID [facility] Last Admin: 05/07/17 09:20 Dose: 750 mg Methylprednisolone Sodium Succinate (Solu-Medrol -) 40 mg IVPUSH Q6H-IV [facility] Last Admin: 05/07/17 14:04 Dose: 40 mg Oxycodone HCl (Roxicodone -) 5 mg PO Q8H PRN PRN Reason: PAIN LEVEL 4 - 6 Last Admin: 05/06/17 22:17 Dose: 5 mg Sotalol HCl (Betapace -) 80 mg PO DAILY [facility] Last Admin: 05/07/17 09:20 Dose: 80 mg Tamsulosin HCl (Flomax -) 0.4 mg PO DAILY@0830 [facility] Last Admin: 05/07/17 09:20 Dose: 0.4 mg Review of Systems Constitutional: denies: Chills or Fever Cardiovascular: as noted above Respiratory: denies: Cough or Sputum Production Gastrointestinal: denies: Nausea, Vomiting, Diarrhea, Constipation or Abdominal Pain Genitourinary: denies: Dysuria Musculoskeletal: denies: Joint Pain Neurological: denies: Dizziness or Headache - Objective Vital Signs: Last Vital Signs Temp Pulse Resp BP Pulse Ox 98.1 F 50 L 20 137/72 94 L 05/07/17 09:58 05/07/17 09:58 05/07/17 09:58 05/07/17 09:58 05/07/17 12:25 Intake & Output 05/04/17 05/05/17 05/06/17 05/07/17 23:59 23:59 23:59 23:59 Intake Total 210 Output Total 3500 1350 Balance -3290 -1350 Weight 214 lb 15.987 oz 212 lb 6.4 oz 213 lb 2 oz Constitutional: No Distress, Calm Neck: Supple Negative JVD No Bruit Respiratory: Diminished Breath Sounds at the Bases Cardiovascular: S1 S2 Regular Rate and Rhythm Gastrointestinal: Soft Benign Normal Bowel Sounds Ext: No Edema Labs: CBC, BMP 05/07/17 05:05 05/07/17 05:05 INR, PTT INR 5.86 (0.82-1.09) H* 05/07/17 05:05 Assessment/Plan ASSESSMENT: 1. Acute on chronic hypercapneic respiratory failure referable to COPD exacerbation, and 2. Acute on chronic class I-II NYHA classification LV diastolic failure with severe pulmonary HTN 3. CAD angina pectoris 4. PAF currently sinus rhythm with supra-therapeutic INR 5. HTN 6. NIDDM 7. Hypercholesterolemia 8. History of CVA with right residual deficit 9. History of Seizure disorder 10. Acute on chronic kidney disease 11. History of GI bleed 12. History of DVT post IVC filter 13. Chest pain syndrome, atypical for angina pectoris PLAN: 1. Continue Betapace with caution considering the above noted bradycardia 2. Continue Norvasc 2. Continue Lasix but switch to PO in AM, with close monitoring of renal function 4. Continue Coumadin as per INR maintaining INR between 2-3, hold today, consider D/C ASA (no recent cardiovascular event or intervention) 5. Continue Lipitor 6. Steroids and Bronchodilators as per pulmonary Sasusan Esquivel M.D.
[2017-05-07] MEDS: oxyCODONE HCL 5 MG TABLET PO PRN ×2 (17:04→22:45)
[2017-05-07] MEDS: ALBUTEROL SO4 2.5/IPRATROPIUM 0.5 INH SOL 3 ML VIAL.NEB. NEB PRN (19:55)
[2017-05-07] MEDS: ATORVASTATIN CA 20 MG TABLET (FP) PO SCH (22:43)
[2017-05-08] MEDS: methylPREDNISolone NA SUCC 40 MG/1 ML VIAL IVPUSH SCH ×3 (04:46→18:17)
[2017-05-08] MEDS: FUROSEMIDE 40 MG/4 ML INJECTABLE VIAL IVPUSH SCH ×2 (06:46→14:39)
[2017-05-08] MEDS: oxyCODONE HCL 5 MG TABLET PO PRN ×3 (06:46→20:28)
[2017-05-08] MEDS ORDERED: levETIRAcetam 250 MG TABLET (FP) PO ONE ×2 (08:58→20:55)
[2017-05-08] MEDS ORDERED: levETIRAcetam 500 MG TABLET (FP) PO ONE ×2 (08:58→20:55)
--- NOTE | 2017-05-08 09:06 | PN ---
Progress Note, Physician - Current Medication List Current Medications: Active Medications Albuterol/Ipratropium (Duoneb -) 1 amp NEB Q6H PRN PRN Reason: SHORTNESS OF BREATH Last Admin: 05/07/17 19:55 Dose: 1 amp Amlodipine Besylate (Norvasc -) 5 mg PO DAILY [facility] Last Admin: 05/07/17 09:20 Dose: 5 mg Aspirin (Asa -) 81 mg PO DAILY [facility] Last Admin: 05/07/17 09:20 Dose: 81 mg Atorvastatin Calcium (Lipitor -) 20 mg PO HS [facility] Last Admin: 05/07/17 22:43 Dose: 20 mg Baclofen (Lioresal -) 10 mg PO BID [facility] Last Admin: 05/07/17 22:42 Dose: 10 mg Citalopram Hydrobromide (Celexa -) 10 mg PO DAILY [facility] Last Admin: 05/07/17 09:20 Dose: 10 mg Furosemide (Lasix Injection -) 40 mg IVPUSH BID@0600,1400 [facility] Last Admin: 05/08/17 06:46 Dose: 40 mg Gabapentin (Neurontin -) 300 mg PO BID [facility] Last Admin: 05/07/17 22:43 Dose: 300 mg Levetiracetam 250 mg/ (Levetiracetam 500 mg) 750 mg PO BID [facility] Last Admin: 05/07/17 22:42 Dose: 750 mg Methylprednisolone Sodium Succinate (Solu-Medrol -) 40 mg IVPUSH Q6H-IV [facility] Last Admin: 05/08/17 04:46 Dose: 40 mg Oxycodone HCl (Roxicodone -) 5 mg PO Q8H PRN PRN Reason: PAIN LEVEL 4 - 6 Last Admin: 05/08/17 06:46 Dose: 5 mg Sotalol HCl (Betapace -) 80 mg PO DAILY [facility] Last Admin: 05/07/17 09:20 Dose: 80 mg Tamsulosin HCl (Flomax -) 0.4 mg PO DAILY@0830 [facility] Last Admin: 05/07/17 09:20 Dose: 0.4 mg - Objective Vital Signs: Vital Signs Temperature 97.6 F 05/08/17 02:00 Pulse Rate 54 L 05/08/17 08:29 Respiratory Rate 22 05/08/17 06:00 Blood Pressure 130/60 05/08/17 06:00 O2 Sat by Pulse Oximetry (%) 91 L 05/08/17 08:29 Cardiovascular: Yes: Regular Rate and Rhythm Respiratory: Yes: Regular, CTA Bilaterally Gastrointestinal: Yes: Normal Bowel Sounds, Soft Labs: CBC, BMP 05/07/17 05:05 05/07/17 05:05 INR, PTT INR 5.86 (0.82-1.09) H* 05/07/17 05:05 Assessment/Plan - Problems (1) Acute on chronic respiratory failure with hypoxia and hypercapnia Assessment/Plan: bipap steroids nebulizers Code(s): J96.21 - ACUTE AND CHRONIC RESPIRATORY FAILURE WITH HYPOXIA; J96.22 - ACUTE AND CHRONIC RESPIRATORY FAILURE WITH HYPERCAPNIA (2) Afib Assessment/Plan: coumadin on hold secondary to supratherapeutic INR sotalol Code(s): I48.91 - UNSPECIFIED ATRIAL FIBRILLATION (3) BPH (benign prostatic hyperplasia) Assessment/Plan: flomax Code(s): N40.0 - BENIGN PROSTATIC HYPERPLASIA WITHOUT LOWER URINRY TRACT SYMP (4) Acute on chronic diastolic (congestive) heart failure Assessment/Plan: I/O lasix iv bid trend BNP Code(s): I50.33 - ACUTE ON CHRONIC DIASTOLIC (CONGESTIVE) HEART FAILURE (5) CVA (cerebral infarction) Assessment/Plan: s/p right hemiparesis baclofen for muscle spasm Code(s): I63.9 - CEREBRAL INFARCTION, UNSPECIFIED
[2017-05-08] MEDS: SOTALOL HCL 80 MG TABLET (FP) PO SCH (09:26)
[2017-05-08] MEDS: ASPIRIN 81 MG CHEWABLE TABLETS PO SCH (09:26)
[2017-05-08] MEDS: CITALOPRAM HYDROBROMIDE 10 MG TABLET (FP) PO SCH (09:26)
[2017-05-08] MEDS: TAMSULOSIN HCL 0.4 MG CAP.ER.24H (FP) PO SCH (09:26)
[2017-05-08] MEDS: BACLOFEN 10 MG TABLET (FP) PO SCH ×2 (09:26→21:25)
[2017-05-08] MEDS: GABAPENTIN 300 MG CAPSULE (FP) PO SCH ×2 (09:26→21:25)
[2017-05-08] MEDS: amLODIPine BESYLATE 5 MG TABLET (FP) PO SCH (09:26)
[2017-05-08 09:37] LABS: BASO % 0.3 % (0-2.0); EOS % 0.1 % (0-4.5); HEMATOCRIT 34.7 % (35.4-49); HEMOGLOBIN 10.2 GM/dL (11.7-16.9); LYMPH % 4.5 % (8-40); MCH 25.3 pg (25.7-33.7); MCHC 29.4 g/dl (32.0-35.9); MEAN CELL VOLUME 86.3 fl (80-96); MONO % 3.4 % (3.8-10.2); NEUT % 91.7 % (42.8-82.8); PLATELET COUNT 199 K/MM3 (134-434); RBC 4.02 M/mm3 (4.00-5.60); RDW 18.9 % (11.9-15.9); WHITE BLOOD COUNT 6.8 K/mm3 (4.0-10.0)
[2017-05-08 09:50] LABS: INR 3.38 (0.82-1.09); PROTHROMBIN TIME (PATIENT) 38.2 SEC (9.98-11.88)
--- NOTE | 2017-05-08 11:05 | PN ---
Progress Note, Physician History of Present Illness: Sensorium improved on bipap. Bradycardic overnight. - Current Medication List Current Medications: Active Medications Albuterol/Ipratropium (Duoneb -) 1 amp NEB Q6H PRN PRN Reason: SHORTNESS OF BREATH Last Admin: 05/07/17 19:55 Dose: 1 amp Amlodipine Besylate (Norvasc -) 5 mg PO DAILY [facility] Last Admin: 05/08/17 09:26 Dose: 5 mg Aspirin (Asa -) 81 mg PO DAILY [facility] Last Admin: 05/08/17 09:26 Dose: 81 mg Atorvastatin Calcium (Lipitor -) 20 mg PO HS [facility] Last Admin: 05/07/17 22:43 Dose: 20 mg Baclofen (Lioresal -) 10 mg PO BID [facility] Last Admin: 05/08/17 09:26 Dose: 10 mg Citalopram Hydrobromide (Celexa -) 10 mg PO DAILY [facility] Last Admin: 05/08/17 09:26 Dose: 10 mg Furosemide (Lasix Injection -) 40 mg IVPUSH BID@0600,1400 [facility] Last Admin: 05/08/17 06:46 Dose: 40 mg Gabapentin (Neurontin -) 300 mg PO BID [facility] Last Admin: 05/08/17 09:26 Dose: 300 mg Levetiracetam 250 mg/ (Levetiracetam 500 mg) 750 mg PO BID [facility] Last Admin: 05/08/17 09:26 Dose: 750 mg Methylprednisolone Sodium Succinate (Solu-Medrol -) 40 mg IVPUSH Q6H-IV [facility] Last Admin: 05/08/17 09:26 Dose: 40 mg Oxycodone HCl (Roxicodone -) 5 mg PO Q8H PRN PRN Reason: PAIN LEVEL 4 - 6 Last Admin: 05/08/17 09:25 Dose: 5 mg Sotalol HCl (Betapace -) 80 mg PO DAILY [facility] Last Admin: 05/08/17 09:26 Dose: 80 mg Tamsulosin HCl (Flomax -) 0.4 mg PO DAILY@0830 [facility] Last Admin: 05/08/17 09:26 Dose: 0.4 mg - Objective Vital Signs: Vital Signs Temperature 97.8 F 05/08/17 10:00 Pulse Rate 55 L 05/08/17 10:00 Respiratory Rate 20 05/08/17 10:00 Blood Pressure 102/54 05/08/17 10:00 O2 Sat by Pulse Oximetry (%) 88 L 05/08/17 09:00 Constitutional: Yes: No Distress, Calm, Thin Neck: Yes: Supple Cardiovascular: Yes: Regular Rate and Rhythm Respiratory: Yes: Diminished, On BiPap Gastrointestinal: Yes: Soft, Hypoactive Bowel Sounds Edema: No Labs: CBC, BMP 05/08/17 09:14 05/07/17 05:05 INR, PTT INR 3.38 (0.82-1.09) H D 05/08/17 09:14 - ....Imaging Chest X-ray: Report Reviewed (Small bilateral effusions), Image Reviewed EKG: Report Reviewed (Tele: SB) Problem List - Problems (1) Supratherapeutic INR Code(s): R79.1 - ABNORMAL COAGULATION PROFILE (2) Shortness of breath Code(s): R06.02 - SHORTNESS OF BREATH (3) Acute kidney failure Code(s): N17.9 - ACUTE KIDNEY FAILURE, UNSPECIFIED Qualifiers: Acute renal failure type: unspecified Qualified Code(s): N17.9 - Acute kidney failure, unspecified (4) Acute on chronic diastolic (congestive) heart failure Code(s): I50.33 - ACUTE ON CHRONIC DIASTOLIC (CONGESTIVE) HEART FAILURE (5) Acute on chronic respiratory failure with hypoxia and hypercapnia Code(s): J96.21 - ACUTE AND CHRONIC RESPIRATORY FAILURE WITH HYPOXIA; J96.22 - ACUTE AND CHRONIC RESPIRATORY FAILURE WITH HYPERCAPNIA (6) COPD (chronic obstructive pulmonary disease) Code(s): J44.9 - CHRONIC OBSTRUCTIVE PULMONARY DISEASE, UNSPECIFIED Qualifiers: COPD type: COPD with acute exacerbation Qualified Code(s): J44.1 - Chronic obstructive pulmonary disease with (acute) exacerbation (7) CVA (cerebral infarction) Code(s): I63.9 - CEREBRAL INFARCTION, UNSPECIFIED Qualifiers: Cerebral infarction mechanism: unspecified mechanism Qualified Code(s): I63.9 - Cerebral infarction, unspecified (8) Diabetes mellitus Code(s): E11.9 - TYPE 2 DIABETES MELLITUS WITHOUT COMPLICATIONS Qualifiers: Diabetes mellitus type: type 2 Diabetes mellitus complication status: without complication (9) H/O deep venous thrombosis Code(s): Z86.718 - PERSONAL HISTORY OF OTHER VENOUS THROMBOSIS AND EMBOLISM (10) HTN (hypertension) Code(s): I10 - ESSENTIAL (PRIMARY) HYPERTENSION Qualifiers: Hypertension type: essential hypertension Qualified Code(s): I10 - Essential (primary) hypertension (11) Hyperlipidemia Code(s): E78.5 - HYPERLIPIDEMIA, UNSPECIFIED Qualifiers: Hyperlipidemia type: pure hypercholesterolemia Qualified Code(s): E78.00 - Pure hypercholesterolemia, unspecified; E78.0 - Pure hypercholesterolemia (12) PAF (paroxysmal atrial fibrillation) Code(s): I48.0 - PAROXYSMAL ATRIAL FIBRILLATION (13) Pulmonary hypertension Code(s): I27.2 - OTHER SECONDARY PULMONARY HYPERTENSION * DO NOT USE * Assessment/Plan 09/24/2016 Echo: Normal LV size and fxn, mild MR, TR, AR RVSP 40-50 mmHg c/w mod pulm HTN 1. Acute on chronic hypercapneic respiratory failure referable to COPD exacerbation, and 2. Acute on chronic class I-II NYHA classification LV diastolic failure with severe pulmonary HTN 3. CAD angina pectoris 4. PAF currently sinus rhythm with supratherapeutic INR 5. HTN 6. NIDDM 7. Hypercholesterolemia 8. History of CVA with right residual deficit 9. History of Seizure disorder 10. Acute on chronic kidney disease 11. History of GI bleed 12. History of DVT post IVC filter 13. Chest pain syndrome, atypical for angina pectoris PLAN: 1. Continue Betapace 80 qd with caution considering the above noted bradycardia 2. Continue Norvasc 5 qd 3. Change Lasix 40 po qd with close monitoring of renal function 4. Continue Coumadin as per INR maintaining INR between 2-3, hold today, D/C ASA (no recent cardiovascular event or intervention) 5. Continue Lipitor 20 qhs 6. IV steroids taper wit GI protection, bronchodilators, O2 to maintain saO2>90% , BiPAP at night and PRN during day
--- NOTE | 2017-05-08 12:24 | PN ---
Progress Note, Physician History of Present Illness: pulmonary awake on bipap,appears comfortable,-resp distress, - Current Medication List Current Medications: Active Medications Albuterol/Ipratropium (Duoneb -) 1 amp NEB Q6H PRN PRN Reason: SHORTNESS OF BREATH Last Admin: 05/07/17 19:55 Dose: 1 amp Amlodipine Besylate (Norvasc -) 5 mg PO DAILY [facility] Last Admin: 05/08/17 09:26 Dose: 5 mg Atorvastatin Calcium (Lipitor -) 20 mg PO HS [facility] Last Admin: 05/07/17 22:43 Dose: 20 mg Baclofen (Lioresal -) 10 mg PO BID [facility] Last Admin: 05/08/17 09:26 Dose: 10 mg Citalopram Hydrobromide (Celexa -) 10 mg PO DAILY [facility] Last Admin: 05/08/17 09:26 Dose: 10 mg Furosemide (Lasix Injection -) 40 mg IVPUSH BID@0600,1400 [facility] Stop: 05/09/17 05:00 Last Admin: 05/08/17 06:46 Dose: 40 mg Furosemide (Lasix -) 40 mg PO DAILY [facility] Gabapentin (Neurontin -) 300 mg PO BID [facility] Last Admin: 05/08/17 09:26 Dose: 300 mg Levetiracetam 250 mg/ (Levetiracetam 500 mg) 750 mg PO BID [facility] Last Admin: 05/08/17 09:26 Dose: 750 mg Methylprednisolone Sodium Succinate (Solu-Medrol -) 40 mg IVPUSH Q6H-IV [facility] Last Admin: 05/08/17 09:26 Dose: 40 mg Oxycodone HCl (Roxicodone -) 5 mg PO Q8H PRN PRN Reason: PAIN LEVEL 4 - 6 Last Admin: 05/08/17 09:25 Dose: 5 mg Sotalol HCl (Betapace -) 80 mg PO DAILY [facility] Last Admin: 05/08/17 09:26 Dose: 80 mg Tamsulosin HCl (Flomax -) 0.4 mg PO DAILY@0830 [facility] Last Admin: 05/08/17 09:26 Dose: 0.4 mg - Objective Vital Signs: Vital Signs Temperature 97.8 F 05/08/17 10:00 Pulse Rate 55 L 05/08/17 10:00 Respiratory Rate 20 05/08/17 10:00 Blood Pressure 102/54 05/08/17 10:00 O2 Sat by Pulse Oximetry (%) 88 L 05/08/17 09:00 Constitutional: Yes: Well Nourished, Calm Eyes: Yes: WNL HENT: Yes: WNL Neck: Yes: WNL Cardiovascular: Yes: Pulse Irregular, S1, S2 Respiratory: Yes: Rhonchi (few scattered rhonchi) Gastrointestinal: Yes: Normal Bowel Sounds, Soft Extremities: Yes: WNL Edema: No Labs: CBC, BMP 05/08/17 09:14 05/07/17 05:05 INR, PTT INR 3.38 (0.82-1.09) H D 05/08/17 09:14 - ....Imaging Chest X-ray: Report Reviewed, Image Reviewed Problem List - Problems (1) Acute on chronic diastolic (congestive) heart failure Code(s): I50.33 - ACUTE ON CHRONIC DIASTOLIC (CONGESTIVE) HEART FAILURE (2) Acute on chronic respiratory failure with hypoxia and hypercapnia Code(s): J96.21 - ACUTE AND CHRONIC RESPIRATORY FAILURE WITH HYPOXIA; J96.22 - ACUTE AND CHRONIC RESPIRATORY FAILURE WITH HYPERCAPNIA (3) Afib Code(s): I48.91 - UNSPECIFIED ATRIAL FIBRILLATION (4) BPH (benign prostatic hyperplasia) Code(s): N40.0 - BENIGN PROSTATIC HYPERPLASIA WITHOUT LOWER URINRY TRACT SYMP (5) CAD (coronary artery disease) Code(s): I25.10 - ATHSCL HEART DISEASE OF [place] CORONARY ARTERY W/O ANG PCTRS Qualifiers: (6) CHF (congestive heart failure) Code(s): I50.9 - HEART FAILURE, UNSPECIFIED Qualifiers: (7) Diabetes mellitus Code(s): E11.9 - TYPE 2 DIABETES MELLITUS WITHOUT COMPLICATIONS Qualifiers: Diabetes mellitus type: type 2 Diabetes mellitus complication status: without complication (8) H/O deep venous thrombosis Code(s): Z86.718 - PERSONAL HISTORY OF OTHER VENOUS THROMBOSIS AND EMBOLISM (9) PAF (paroxysmal atrial fibrillation) Code(s): I48.0 - PAROXYSMAL ATRIAL FIBRILLATION (10) Pulmonary hypertension Code(s): I27.2 - OTHER SECONDARY PULMONARY HYPERTENSION * DO NOT USE * Assessment/Plan ASSESSMENT AND PLAN: Acute on Chronic Hypoxic and Hypercapneic Respiratory Failure Acute on Chronic Diastolic Heart Failure Pulmonary HTN Acute on Chronic Renal Failure Acute COPD Exacerbation Atrial Fibrillation h/o DVT h/o CVA HTN Hyperlipidemia - IV lasix - monitor urine output, creatinine - IV medrol - inhaled bronchodilators standing and PRN - O2 to keep Spo2 >90% - BiPAP at night and PRN during day - nasal cannula as tolerated - rate control - continue anticoagulation - PO as tolerated - pt DNR/DNI DR WHITING
[2017-05-08] MEDS: ATORVASTATIN CA 20 MG TABLET (FP) PO SCH (21:25)
[2017-05-09] MEDS: methylPREDNISolone NA SUCC 40 MG/1 ML VIAL IVPUSH SCH ×3 (01:45→19:00)
[2017-05-09 06:10] LABS: SERUM IRON SATURATION 7 % (15-55); TOTAL IRON BINDING CAPACITY 337 ug/dL (250-450); UIBC 312 ug/dL (111-343)
[2017-05-09 07:46] LABS: ALBUMIN 2.9 g/dl (3.4-5.0); ANION GAP 4 (8-16); BLOOD UREA NITROGEN 66 mg/dL (7-18); CALCIUM 9.2 mg/dL (8.5-10.1); CHLORIDE 93 mmol/L (98-107); CO2 42 mmol/L (21-32); CREATININE 1.7 mg/dL (0.7-1.3); GLUCOSE,RANDOM 119 mg/dL (74-106); POTASSIUM 4.3 mmol/L (3.5-5.1); SGOT/AST 20 U/L (15-37); SGPT/ALT 37 U/L (12-78); SODIUM 139 mmol/L (136-145); TOT PROT 6.3 g/dl (6.4-8.2)
[2017-05-09 07:48] LABS: ALK PHOS 62 U/L (45-117); BILIRUBIN,TOTAL 0.6 mg/dL (0.2-1.0)
[2017-05-09] MEDS: TAMSULOSIN HCL 0.4 MG CAP.ER.24H (FP) PO SCH (08:42)
--- NOTE | 2017-05-09 09:32 | PN ---
Progress Note, Physician Chief Complaint: Events noted Complains of right sided chest wall pain History of Present Illness: Patient was seen and examined. Awake and alert. Chart was reviewed Generalized weakness and complains of right sided pain. Denies shortness of breath or palpitations - Current Medication List Current Medications: Active Medications Albuterol/Ipratropium (Duoneb -) 1 amp NEB Q6H PRN PRN Reason: SHORTNESS OF BREATH Last Admin: 05/07/17 19:55 Dose: 1 amp Amlodipine Besylate (Norvasc -) 5 mg PO DAILY [facility] Last Admin: 05/08/17 09:26 Dose: 5 mg Atorvastatin Calcium (Lipitor -) 20 mg PO HS [facility] Last Admin: 05/08/17 21:25 Dose: 20 mg Baclofen (Lioresal -) 10 mg PO BID [facility] Last Admin: 05/08/17 21:25 Dose: 10 mg Citalopram Hydrobromide (Celexa -) 10 mg PO DAILY [facility] Last Admin: 05/08/17 09:26 Dose: 10 mg Furosemide (Lasix -) 40 mg PO DAILY [facility] Gabapentin (Neurontin -) 300 mg PO BID [facility] Last Admin: 05/08/17 21:25 Dose: 300 mg Levetiracetam 250 mg/ (Levetiracetam 500 mg) 750 mg PO BID [facility] Last Admin: 05/08/17 21:25 Dose: 750 mg Methylprednisolone Sodium Succinate (Solu-Medrol -) 40 mg IVPUSH Q8H-IV [facility] Last Admin: 05/09/17 01:45 Dose: 40 mg Oxycodone HCl (Roxicodone -) 5 mg PO Q8H PRN PRN Reason: PAIN LEVEL 4 - 6 Last Admin: 05/08/17 20:28 Dose: 5 mg Sotalol HCl (Betapace -) 80 mg PO DAILY [facility] Last Admin: 05/08/17 09:26 Dose: 80 mg Tamsulosin HCl (Flomax -) 0.4 mg PO DAILY@0830 [facility] Last Admin: 05/08/17 09:26 Dose: 0.4 mg - Objective Vital Signs: Vital Signs Temperature 98.0 F 05/09/17 05:47 Pulse Rate 45 L 05/09/17 05:47 Respiratory Rate 20 05/09/17 05:47 Blood Pressure 102/35 05/09/17 05:47 O2 Sat by Pulse Oximetry (%) 93 L 05/09/17 08:37 Eyes: Yes: PERRL HENT: Yes: Atraumatic Neck: Yes: Supple Cardiovascular: Yes: Regular Rate and Rhythm, Murmur (Soft SM right sternal border and apex), S1, S2 Respiratory: Yes: Diminished Gastrointestinal: Yes: Normal Bowel Sounds, Soft, Abdomen, Obese. No: Tenderness Edema: No Labs: CBC, BMP 05/08/17 09:14 05/09/17 06:15 INR, PTT INR 3.38 (0.82-1.09) H D 05/08/17 09:14 Problem List - Problems (1) Shortness of breath Code(s): R06.02 - SHORTNESS OF BREATH (2) Supratherapeutic INR Code(s): R79.1 - ABNORMAL COAGULATION PROFILE (3) Acute on chronic diastolic (congestive) heart failure Code(s): I50.33 - ACUTE ON CHRONIC DIASTOLIC (CONGESTIVE) HEART FAILURE (4) Acute on chronic respiratory failure with hypoxia and hypercapnia Code(s): J96.21 - ACUTE AND CHRONIC RESPIRATORY FAILURE WITH HYPOXIA; J96.22 - ACUTE AND CHRONIC RESPIRATORY FAILURE WITH HYPERCAPNIA (5) CAD (coronary artery disease) Code(s): I25.10 - ATHSCL HEART DISEASE OF [place] CORONARY ARTERY W/O ANG PCTRS Qualifiers: Coronary Disease-Associated Artery/Lesion type: [place] artery [place] vs. transplanted heart: [place] heart Associated angina: without angina Qualified Code(s): I25.10 - Atherosclerotic heart disease of [place] coronary artery without angina pectoris (6) COPD (chronic obstructive pulmonary disease) Code(s): J44.9 - CHRONIC OBSTRUCTIVE PULMONARY DISEASE, UNSPECIFIED Qualifiers: COPD type: COPD with acute exacerbation Qualified Code(s): J44.1 - Chronic obstructive pulmonary disease with (acute) exacerbation (7) CVA (cerebral infarction) Code(s): I63.9 - CEREBRAL INFARCTION, UNSPECIFIED Qualifiers: Cerebral infarction mechanism: unspecified mechanism Qualified Code(s): I63.9 - Cerebral infarction, unspecified (8) Chest pain Code(s): R07.9 - CHEST PAIN, UNSPECIFIED Qualifiers: Chest pain type: unspecified Qualified Code(s): R07.9 - Chest pain, unspecified (9) Chronic hypercapnic respiratory failure Code(s): J96.12 - CHRONIC RESPIRATORY FAILURE WITH HYPERCAPNIA (10) DVT (deep venous thrombosis) Code(s): I82.409 - ACUTE EMBOLISM AND THOMBOS UNSP DEEP VN UNSP LOWER EXTREMITY Qualifiers: DVT location: lower extremity Affected thrombotic vein of extremity: unspecified vein of extremity Chronicity: chronic Laterality: unspecified laterality Qualified Code(s): I82.509 - Chronic embolism and thrombosis of unspecified deep veins of unspecified lower extremity (11) Diabetes mellitus Code(s): E11.9 - TYPE 2 DIABETES MELLITUS WITHOUT COMPLICATIONS Qualifiers: Diabetes mellitus type: type 2 Diabetes mellitus complication status: without complication (12) HTN (hypertension) Code(s): I10 - ESSENTIAL (PRIMARY) HYPERTENSION Qualifiers: Hypertension type: essential hypertension Qualified Code(s): I10 - Essential (primary) hypertension (13) Hyperlipidemia Code(s): E78.5 - HYPERLIPIDEMIA, UNSPECIFIED Qualifiers: Hyperlipidemia type: pure hypercholesterolemia Qualified Code(s): E78.00 - Pure hypercholesterolemia, unspecified; E78.0 - Pure hypercholesterolemia (14) Lung nodule Code(s): R91.1 - SOLITARY PULMONARY NODULE (15) PAF (paroxysmal atrial fibrillation) Code(s): I48.0 - PAROXYSMAL ATRIAL FIBRILLATION (16) Pulmonary hypertension Code(s): I27.2 - OTHER SECONDARY PULMONARY HYPERTENSION * DO NOT USE * Assessment/Plan 1. Acute on chronic hypercapneic respiratory failure referable to COPD exacerbation 2. Acute on chronic class I-II NYHA classification LV diastolic failure with severe pulmonary HTN 3. CAD angina pectoris 4. PAF currently sinus rhythm with supratherapeutic INR 5. HTN 6. NIDDM 7. Hypercholesterolemia 8. History of CVA with right residual deficit 9. History of Seizure disorder 10. Acute on chronic kidney disease 11. History of GI bleed 12. History of DVT post IVC filter 13. Chest pain syndrome, atypical for angina pectoris - complains of right sided pain ?musculoskeletal, doubt PTE PLAN: 1. Continue Sotalol 80 qd with caution. Follow ECG 2. Continue Norvasc 5 qd 3. Change Lasix 40 po qd with close monitoring of renal function 4. Continue Coumadin as per INR maintaining INR between 2-3. Awaiting INR today 5. Continue Lipitor 20 qhs 6. IV steroids taper with GI protection, bronchodilators, O2 to maintain saO2>90 %, BiPAP as needed 7. Chest CT this am. Further plans are to follow Bo Davis MD
[2017-05-09] MEDS ORDERED: levETIRAcetam 500 MG TABLET (FP) PO ONE ×2 (09:33→21:22)
[2017-05-09] MEDS ORDERED: levETIRAcetam 250 MG TABLET (FP) PO ONE ×2 (09:33→21:21)
[2017-05-09 10:02] LABS: HEMATOCRIT 32.9 % (35.4-49); HEMOGLOBIN 9.8 GM/dL (11.7-16.9); MCH 25.7 pg (25.7-33.7); MCHC 29.8 g/dl (32.0-35.9); MEAN CELL VOLUME 86.3 fl (80-96); MEAN PLT VOLUME 8.5 fl (7.5-11.1); PLATELET COUNT 187 K/MM3 (134-434); RBC 3.81 M/mm3 (4.00-5.60); RDW 18.6 % (11.9-15.9); WHITE BLOOD COUNT 6.3 K/mm3 (4.0-10.0)
[2017-05-09 10:05] LABS: INR 2.23 (0.82-1.09); PROTHROMBIN TIME (PATIENT) 25.2 SEC (9.98-11.88)
[2017-05-09 10:20] LABS: ALBUMIN 3.1 g/dl (3.4-5.0); ANION GAP 4 (8-16); BILIRUBIN,TOTAL 0.7 mg/dL (0.2-1.0); BLOOD UREA NITROGEN 59 mg/dL (7-18); CHLORIDE 94 mmol/L (98-107); CO2 41 mmol/L (21-32); CREATININE 1.6 mg/dL (0.7-1.3); GLUCOSE,RANDOM 133 mg/dL (74-106); SGOT/AST 18 U/L (15-37); SGPT/ALT 37 U/L (12-78); SODIUM 139 mmol/L (136-145); TOT PROT 6.6 g/dl (6.4-8.2)
[2017-05-09 10:21] LABS: ALK PHOS 65 U/L (45-117)
[2017-05-09] MEDS: CITALOPRAM HYDROBROMIDE 10 MG TABLET (FP) PO SCH (10:42)
[2017-05-09] MEDS: FUROSEMIDE 40 MG TABLET (FP) PO SCH (10:42)
[2017-05-09] MEDS: BACLOFEN 10 MG TABLET (FP) PO SCH ×2 (10:43→21:46)
[2017-05-09] MEDS: oxyCODONE HCL 5 MG TABLET PO PRN ×2 (10:43→20:00)
[2017-05-09] MEDS: GABAPENTIN 300 MG CAPSULE (FP) PO SCH ×2 (10:43→21:45)
[2017-05-09] MEDS: amLODIPine BESYLATE 5 MG TABLET (FP) PO SCH (10:43)
[2017-05-09] MEDS: SOTALOL HCL 80 MG TABLET (FP) PO SCH ×2 (10:44→10:48)
[2017-05-09] MEDS ORDERED: MAG HYDROX/AL HYDROX/SIMETH 30 ML UNIT-DOSE CUP PO PRN (10:50)
[2017-05-09] MEDS ORDERED: PT OWN MED DRAWER 7, Y5N ONE (10:52)
--- NOTE | 2017-05-09 11:10 | PN ---
Progress Note, Physician Chief Complaint: no sob no chest pain complaining right side pain muscle pain - Current Medication List Current Medications: Active Medications Al Hydroxide/Mg Hydroxide (Mylanta Suspension -) 30 ml PO Q6HPO PRN PRN Reason: DYSPEPSIA Albuterol/Ipratropium (Duoneb -) 1 amp NEB Q6H PRN PRN Reason: SHORTNESS OF BREATH Last Admin: 05/07/17 19:55 Dose: 1 amp Amlodipine Besylate (Norvasc -) 5 mg PO DAILY [facility] Last Admin: 05/09/17 10:43 Dose: 5 mg Atorvastatin Calcium (Lipitor -) 20 mg PO HS [facility] Last Admin: 05/08/17 21:25 Dose: 20 mg Baclofen (Lioresal -) 10 mg PO BID [facility] Last Admin: 05/09/17 10:43 Dose: 10 mg Citalopram Hydrobromide (Celexa -) 10 mg PO DAILY [facility] Last Admin: 05/09/17 10:42 Dose: 10 mg Furosemide (Lasix -) 40 mg PO DAILY [facility] Last Admin: 05/09/17 10:42 Dose: 40 mg Gabapentin (Neurontin -) 300 mg PO BID [facility] Last Admin: 05/09/17 10:43 Dose: 300 mg Levetiracetam 250 mg/ (Levetiracetam 500 mg) 750 mg PO BID [facility] Last Admin: 05/09/17 10:42 Dose: 750 mg Methylprednisolone Sodium Succinate (Solu-Medrol -) 40 mg IVPUSH Q8H-IV [facility] Last Admin: 05/09/17 10:44 Dose: 40 mg Oxycodone HCl (Roxicodone -) 5 mg PO Q8H PRN PRN Reason: PAIN LEVEL 4 - 6 Last Admin: 05/09/17 10:43 Dose: 5 mg Sotalol HCl (Betapace -) 80 mg PO DAILY [facility] Last Admin: 05/09/17 10:48 Dose: Not Given Tamsulosin HCl (Flomax -) 0.4 mg PO DAILY@0830 [facility] Last Admin: 05/09/17 08:42 Dose: 0.4 mg - Objective Vital Signs: Vital Signs Temperature 98.0 F 05/09/17 05:47 Pulse Rate 45 L 05/09/17 05:47 Respiratory Rate 20 05/09/17 05:47 Blood Pressure 102/35 05/09/17 05:47 O2 Sat by Pulse Oximetry (%) 93 L 05/09/17 08:37 Constitutional: Yes: Calm Neck: Yes: Trachea Midline Cardiovascular: Yes: Regular Rate and Rhythm, S1, S2 Respiratory: Yes: Diminished, On Nasal O2 Gastrointestinal: Yes: Normal Bowel Sounds, Soft Edema: Yes (trace( much improved)) Neurological: Yes: Alert, Oriented Labs: CBC, BMP 05/09/17 09:20 05/09/17 09:20 INR, PTT INR 2.23 (0.82-1.09) H D 05/09/17 09:20 Problem List - Problems (1) Acute on chronic respiratory failure with hypoxia and hypercapnia Assessment/Plan: bipap at night nasal oxygen steroids iv taper nebulizers Code(s): J96.21 - ACUTE AND CHRONIC RESPIRATORY FAILURE WITH HYPOXIA; J96.22 - ACUTE AND CHRONIC RESPIRATORY FAILURE WITH HYPERCAPNIA (2) Afib Assessment/Plan: coumadin restarted INR therapeutic sotalol Code(s): I48.91 - UNSPECIFIED ATRIAL FIBRILLATION (3) BPH (benign prostatic hyperplasia) Assessment/Plan: flomax Code(s): N40.0 - BENIGN PROSTATIC HYPERPLASIA WITHOUT LOWER URINRY TRACT SYMP (4) Acute on chronic diastolic (congestive) heart failure Assessment/Plan: I/O lasix iv to po lasix chest CT noted cardiomegaly trace pericardial effusion Code(s): I50.33 - ACUTE ON CHRONIC DIASTOLIC (CONGESTIVE) HEART FAILURE (5) CVA (cerebral infarction) Assessment/Plan: right sided weakness Code(s): I63.9 - CEREBRAL INFARCTION, UNSPECIFIED Qualifiers: Cerebral infarction mechanism: unspecified mechanism Qualified Code(s): I63.9 - Cerebral infarction, unspecified
[2017-05-09] MEDS ORDERED: WARFARIN NA 5 MG TABLET (UD) PO ONE ×2 (11:45→18:00)
[2017-05-09] MEDS: ALBUTEROL SO4 2.5/IPRATROPIUM 0.5 INH SOL 3 ML VIAL.NEB. NEB PRN ×2 (11:48→21:40)
--- NOTE | 2017-05-09 12:10 | PN ---
Progress Note (short form) - Note Progress Note: Breathing feels ok but reports some non-specific right musculoskeletal discomfort. CT Noted: chronic disease with stable non-specific nodules. No pathology to explain right sided symptoms. Intake & Output 05/06/17 05/07/17 05/08/17 05/09/17 23:59 23:59 23:59 23:59 Intake Total 210 690 Output Total 3500 2450 2450 850 Balance -3290 -2450 -1760 -850 Weight 212 lb 6.4 oz 213 lb 2 oz 215 lb 3.2 oz Last Vital Signs Temp Pulse Resp BP Pulse Ox 98.0 F 45 L 20 102/35 94 L 05/09/17 05:47 05/09/17 05:47 05/09/17 05:47 05/09/17 05:47 05/09/17 11:46 Microbiology 05/05/17 11:23 Blood - Peripheral Venous Blood Culture - Preliminary NO GROWTH OBTAINED AFTER 96 HOURS, INCUBATION TO CONTINUE FOR 1 DAYS. 05/05/17 11:23 Blood - Peripheral Venous Blood Culture - Preliminary NO GROWTH OBTAINED AFTER 96 HOURS, INCUBATION TO CONTINUE FOR 1 DAYS. Active Medications Al Hydroxide/Mg Hydroxide (Mylanta Oral Suspension -) 30 ml PO Q6HPO PRN PRN Reason: DYSPEPSIA Albuterol/Ipratropium (Duoneb -) 1 amp NEB Q6H PRN PRN Reason: SHORTNESS OF BREATH Last Admin: 05/09/17 11:48 Dose: 1 amp Amlodipine Besylate (Norvasc -) 5 mg PO DAILY [facility] Last Admin: 05/09/17 10:43 Dose: 5 mg Atorvastatin Calcium (Lipitor -) 20 mg PO [facility] Last Admin: 05/08/17 21:25 Dose: 20 mg Baclofen (Lioresal -) 10 mg PO BID [facility] Last Admin: 05/09/17 10:43 Dose: 10 mg Citalopram Hydrobromide (Celexa -) 10 mg PO DAILY [facility] Last Admin: 05/09/17 10:42 Dose: 10 mg Furosemide (Lasix -) 40 mg PO DAILY [facility] Last Admin: 05/09/17 10:42 Dose: 40 mg Gabapentin (Neurontin -) 300 mg PO BID [facility] Last Admin: 05/09/17 10:43 Dose: 300 mg Levetiracetam 250 mg/ (Levetiracetam 500 mg) 750 mg PO BID [facility] Last Admin: 05/09/17 10:42 Dose: 750 mg Methylprednisolone Sodium Succinate (Solu-Medrol -) 40 mg IVPUSH Q8H-IV [facility] Last Admin: 05/09/17 10:44 Dose: 40 mg Oxycodone HCl (Roxicodone -) 5 mg PO Q8H PRN PRN Reason: PAIN LEVEL 4 - 6 Last Admin: 05/09/17 10:43 Dose: 5 mg Sotalol HCl (Betapace -) 80 mg PO DAILY [facility] Last Admin: 05/09/17 10:48 Dose: Not Given Tamsulosin HCl (Flomax -) 0.4 mg PO DAILY@0830 [facility] Last Admin: 05/09/17 08:42 Dose: 0.4 mg Constitutional: Yes: NAD Eyes: Yes: WNL HENT: Yes: WNL Neck: Yes: WNL Cardiovascular: Yes: Pulse Irregular, S1, S2 Respiratory: Yes: Few scattered Rhonchi Gastrointestinal: Yes: Normal Bowel Sounds, Soft Extremities: Yes: WNL Edema: No Labs: Laboratory Results - last 24 hr 05/08/17 05/08/17 05/09/17 09:14 09:14 06:15 WBC RBC Hgb Hct MCV MCH MCHC RDW Plt Count MPV PT with INR INR Sodium 139 Potassium 4.3 Chloride 93 L Carbon Dioxide 42 H Anion Gap 4 L BUN 66 H D Creatinine 1.7 H Creat Clearance w eGFR 39.82 Random Glucose 119 H Calcium 9.2 Iron 25 L TIBC 337 Iron Saturation 7 L Ferritin 64.409 Total Bilirubin 0.6 AST 20 ALT 37 Alkaline Phosphatase 62 Total Protein 6.3 L Albumin 2.9 L TSH 0.19 L D 05/09/17 05/09/17 05/09/17 09:20 09:20 09:20 WBC 6.3 RBC 3.81 L Hgb 9.8 L Hct 32.9 L MCV 86.3 MCH 25.7 MCHC 29.8 L RDW 18.6 H Plt Count 187 MPV 8.5 PT with INR 25.20 H INR 2.23 H D Sodium 139 Potassium 4.0 Chloride 94 L Carbon Dioxide 41 H Anion Gap 4 L BUN 59 H Creatinine 1.6 H Creat Clearance w eGFR 42.70 Random Glucose 133 H Calcium 9.0 Iron TIBC Iron Saturation Ferritin Total Bilirubin 0.7 AST 18 ALT 37 Alkaline Phosphatase 65 Total Protein 6.6 Albumin 3.1 L TSH Problem List - Problems (1) Acute on chronic diastolic (congestive) heart failure Code(s): I50.33 - ACUTE ON CHRONIC DIASTOLIC (CONGESTIVE) HEART FAILURE (2) Acute on chronic respiratory failure with hypoxia and hypercapnia Code(s): J96.21 - ACUTE AND CHRONIC RESPIRATORY FAILURE WITH HYPOXIA; J96.22 - ACUTE AND CHRONIC RESPIRATORY FAILURE WITH HYPERCAPNIA (3) Afib Code(s): I48.91 - UNSPECIFIED ATRIAL FIBRILLATION (4) BPH (benign prostatic hyperplasia) Code(s): N40.0 - BENIGN PROSTATIC HYPERPLASIA WITHOUT LOWER URINRY TRACT SYMP (5) CAD (coronary artery disease) Code(s): I25.10 - ATHSCL HEART DISEASE OF [place] CORONARY ARTERY W/O ANG PCTRS Qualifiers: (6) CHF (congestive heart failure) Code(s): I50.9 - HEART FAILURE, UNSPECIFIED Qualifiers: (7) Diabetes mellitus Code(s): E11.9 - TYPE 2 DIABETES MELLITUS WITHOUT COMPLICATIONS Qualifiers: Diabetes mellitus type: type 2 Diabetes mellitus complication status: without complication (8) H/O deep venous thrombosis Code(s): Z86.718 - PERSONAL HISTORY OF OTHER VENOUS THROMBOSIS AND EMBOLISM (9) PAF (paroxysmal atrial fibrillation) Code(s): I48.0 - PAROXYSMAL ATRIAL FIBRILLATION (10) Pulmonary hypertension Code(s): I27.2 - OTHER SECONDARY PULMONARY HYPERTENSION * DO NOT USE * Assessment/Plan Acute on Chronic Hypoxic and Hypercapneic Respiratory Failure Acute on Chronic Diastolic Heart Failure Pulmonary HTN Acute on Chronic Renal Failure Acute COPD Exacerbation Atrial Fibrillation h/o DVT h/o CVA HTN Hyperlipidemia - IV lasix - monitor urine output, creatinine - IV medrol - inhaled bronchodilators standing and PRN - O2 to keep Spo2 >90% - BiPAP at night and PRN during day - nasal cannula as tolerated - rate control - AC - PO as tolerated - DNR/DNI Dr Li
--- NOTE | 2017-05-09 14:27 | CONSULT ---
Admitting History and Physical - Primary Care Physician PCP: Kimani Hein - Admission History of Present Illness: per emr: patient is a 72 y.o. male with a PMH of Afib (on Warfarin) COPD (on 2-3 L @ baseline), h/o DVT (on Warfarin), PVD, who presents from [facility] with a c/o respiratory distress. At presentation patient c/o dyspnea which he states has been "going on for a while" and denies any chest pain. As per nursing supervisor malted milk @ [facility] (Ms. Angelina Franklin [phone]) patient was in his usual state of health this morning @ 9:15 a.m. Patient became unresponsive in front of transporter with thready pulse, rescue breaths adminstered via BMV. 911 was called and patient was responsive was given BMV and became responsive. EMS notes patient was hypertensive (SBP 180's) and Hypoxic (SpO2 80's) en route. According to pt's son, Mr. Vasquez was coughing during dinner last night, requiring suctioning. Pt reportedly tolerated his meals today, without overt difficulty. Selected Entries 05/08/17 05/08/17 05/08/17 02:00 10:00 11:03 Breakfast 75% Lunch Supper Temperature 97.6 F 97.8 F 05/08/17 05/08/17 05/08/17 14:00 18:00 19:50 Breakfast Lunch 75% Supper Temperature 97.8 F 98.0 F 97.1 F L 05/08/17 05/09/17 05/09/17 19:58 02:00 05:47 Breakfast Lunch Supper 75% Temperature 96.8 F L 98.0 F 05/09/17 11:11 Breakfast 75% Lunch Supper Temperature Laboratory Tests 05/09/17 09:20 WBC 6.3 Pt on BIPAP this afternoon MBS April 2015, impulsive intake, build up in pharynx before swallow is generated, delayed esophageal emptying. 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 Cardiovascular: Yes: CAD, CHF, HTN, Hyperlipdemia, Pulmonary Hypertension Pulmonary: Yes: COPD, Other (CB pulmonary nodule on CT 03/28/14) Gastrointestinal: Yes: GERD, GI Bleed - Advance Directives Advance Directives: Yes: DNR - Smoking History Smoking history: Unknown if ever smoked Have you smoked in the past 12 months: No Aproximately how many cigarettes per day: 0 If you are a former smoker, when did you quit?: 2002 - Alcohol/Substance Use Hx Alcohol Use: No - Social History History of Recent Travel: No History - Admission Reason For Visit: ACUTE ON CHRONIC RESPIRATORY FAILURE - Diagnostics X-ray: Report Reviewed CT Scan: Report Reviewed - General Mental Status: Alert and Oriented, Awake and Alert, Able to Follow Commands Attention: Intact Ability to Follow Directions: Good - Hearing Hearing: Normal Speech Evaluation - Communication Primary Language: OMANI Communication: Yes: Within Normal Limits Oral Expression Ability: Yes: No Impairment - Speech Production Able to Make Needs Known: Yes: WNL Intelligibility: Yes: WNL - Speech Characteristics Voice Loudness: Normal Voice Pitch: Yes: Mildly Low Voice Phonatory-based Quality: Yes: Normal Speech Pattern: Normal Speech Clarity: < 100% Nasal Resonance: Normal Articulation: Yes: Precise Rate of Speech: Intact - Language/Auditory Comprehension Follows: Yes: 1 Stage Simple Commands - Language/Verbal Expression Able to Respond to Simple Queries: Yes: WNL Able to Communicate Wants and Needs: Yes: WNL Functional Communication Status: Yes: WNL - Swallow Evaluation/Bedside Assessment Current Nutritional Intake: Soft, Thin Liquids Oral Secretions: Yes: WFL Dentition: Yes: Edentulous (lower), Dental Appliance Upper Facial Symmetry at Rest: Symmetrical Facial Symmetry on Retraction: Symmetrical Facial Movement: Controlled Sensation: Normal Against Resistance Opening: Normal Against Resistance Closing: Normal Pucker Lips: Normal Smile: Normal Lingual Movement: Normal, Symmetric Lingual Speed of Movement: Normal Lingual Movement Strgth Against Opposition: Normal Lingual Movement Characteristics: Normal Velopharyngeal Movement: Normal Laryngeal Movement: Labored,delay initiation Labial Seal: WFL Chewing: WFL Oral Prep Time: WFL A-P Transit: WFL Pocketing: None Coughing/Throat Clear: Yes (brief, sip of water) Recommendations - Speech Evaluation, Impression/Plan Impression: Pt reported that the food stuck in his throat last night. He reports h/o coghing with food at [place]. He does not want to be downgraded to pureed food. - Disposition [facility] to[facility] - Dysphagia Impressions/Plan Dysphagia Impressions: Ongoing Evaluation, Suspect Aspiration (intermittent on thin?) *Silent aspiration: cannot be R/O at bedside Dysphagia Treatment Plan: Chin Tuck/Down, Safe Rate, 1/2 tsp. at a time, Elevate HOB during feed, Other (mash soft food with gravy.Alternate solds with liquid, ansd complete meal with liquid) Recommendations: MBS w Esophagus, Other - Recommendations Diet Consistency: Dysphagia Whole (Mash soft food with extra gravy.if cough, congestion, chopped until mbs performed.) Liquids: Thin Liquids (Single, careful sips, no straws.if cough, congestion, nectar thick until mbs performed.)
--- NOTE | 2017-05-09 14:52 | EKG ---
Test Reason : Blood Pressure : / mmHG Vent. Rate : 045 BPM Atrial Rate : 045 BPM P-R Int : 184 ms QRS Dur : 158 ms QT Int : 460 ms P-R-T Axes : 036 -07 -47 degrees QTc Int : 397 ms SINUS BRADYCARDIA WITH OCCASIONAL PREMATURE VENTRICULAR COMPLEXES RIGHT BUNDLE BRANCH BLOCK CANNOT RULE OUT INFERIOR INFARCT , AGE UNDETERMINED ABNORMAL ECG WHEN COMPARED WITH ECG OF 05-MAY-2017 10:55, PREMATURE VENTRICULAR COMPLEXES ARE NOW PRESENT MINIMAL CRITERIA FOR INFERIOR INFARCT ARE NOW PRESENT Confirmed by NIKKI WADE MD ([id number]) on 05/09/2017 2:52:30 PM Referred By: Confirmed By:NIKKI WADE MD
[2017-05-09] MEDS: ATORVASTATIN CA 20 MG TABLET (FP) PO SCH (21:46)
[2017-05-10] MEDS: methylPREDNISolone NA SUCC 40 MG/1 ML VIAL IVPUSH SCH ×4 (01:10→22:06)
[2017-05-10] MEDS: oxyCODONE HCL 5 MG TABLET PO PRN ×2 (04:12→17:43)
[2017-05-10 06:57] LABS: INR 1.81 (0.82-1.09); PROTHROMBIN TIME (PATIENT) 20.5 SEC (9.98-11.88)
[2017-05-10] MEDS: ALBUTEROL SO4 2.5/IPRATROPIUM 0.5 INH SOL 3 ML VIAL.NEB. NEB PRN ×4 (08:23→20:58)
[2017-05-10] MEDS: TAMSULOSIN HCL 0.4 MG CAP.ER.24H (FP) PO SCH (08:35)
[2017-05-10] MEDS ORDERED: levETIRAcetam 500 MG TABLET (FP) PO ONE ×2 (09:09→21:16)
[2017-05-10] MEDS ORDERED: levETIRAcetam 250 MG TABLET (FP) PO ONE ×2 (09:09→21:16)
--- NOTE | 2017-05-10 09:30 | PN ---
Progress Note, Physician History of Present Illness: Sensorium improved post bipap. Bradycardic, sotalol held, chest CT w/o CHF, no further chest discomfort. - Current Medication List Current Medications: Active Medications Al Hydroxide/Mg Hydroxide (Mylanta Oral Suspension -) 30 ml PO Q6HPO PRN PRN Reason: DYSPEPSIA Albuterol/Ipratropium (Duoneb -) 1 amp NEB Q6H PRN PRN Reason: SHORTNESS OF BREATH Last Admin: 05/10/17 08:23 Dose: 1 amp Amlodipine Besylate (Norvasc -) 5 mg PO DAILY [facility] Last Admin: 05/09/17 10:43 Dose: 5 mg Atorvastatin Calcium (Lipitor -) 20 mg PO HS [facility] Last Admin: 05/09/17 21:46 Dose: 20 mg Baclofen (Lioresal -) 10 mg PO BID [facility] Last Admin: 05/09/17 21:46 Dose: 10 mg Citalopram Hydrobromide (Celexa -) 10 mg PO DAILY [facility] Last Admin: 05/09/17 10:42 Dose: 10 mg Furosemide (Lasix -) 40 mg PO DAILY [facility] Last Admin: 05/09/17 10:42 Dose: 40 mg Gabapentin (Neurontin -) 300 mg PO BID [facility] Last Admin: 05/09/17 21:45 Dose: 300 mg Levetiracetam 250 mg/ (Levetiracetam 500 mg) 750 mg PO BID [facility] Last Admin: 05/09/17 21:45 Dose: 750 mg Methylprednisolone Sodium Succinate (Solu-Medrol -) 40 mg IVPUSH Q8H-IV [facility] Last Admin: 05/10/17 01:10 Dose: 40 mg Oxycodone HCl (Roxicodone -) 5 mg PO Q8H PRN PRN Reason: PAIN LEVEL 4 - 6 Last Admin: 05/10/17 04:12 Dose: 5 mg Sotalol HCl (Betapace -) 80 mg PO DAILY [facility] Last Admin: 05/09/17 10:48 Dose: Not Given Tamsulosin HCl (Flomax -) 0.4 mg PO DAILY@0830 [facility] Last Admin: 05/10/17 08:35 Dose: 0.4 mg - Objective Vital Signs: Vital Signs Temperature 97.6 F 05/10/17 05:52 Pulse Rate 59 L 05/10/17 05:52 Respiratory Rate 20 05/10/17 05:52 Blood Pressure 126/80 05/10/17 05:52 O2 Sat by Pulse Oximetry (%) 94 L 05/09/17 21:53 Constitutional: Yes: No Distress, Calm, Thin Neck: Yes: Supple Cardiovascular: Yes: Regular Rate and Rhythm Respiratory: Yes: Regular, Diminished, On Nasal O2 Gastrointestinal: Yes: Normal Bowel Sounds, Soft Edema: No Labs: CBC, BMP 05/09/17 09:20 05/09/17 09:20 INR, PTT INR 1.81 (0.82-1.09) H 05/10/17 05:35 - ....Imaging Cat Scan: Report Reviewed (Chest CT CB scarring) EKG: Report Reviewed (SB@48 RBBB PVC Tele: SB with occ PVC) Problem List - Problems (1) Shortness of breath Code(s): R06.02 - SHORTNESS OF BREATH (2) Acute on chronic diastolic (congestive) heart failure Code(s): I50.33 - ACUTE ON CHRONIC DIASTOLIC (CONGESTIVE) HEART FAILURE (3) Acute on chronic respiratory failure with hypoxia and hypercapnia Code(s): J96.21 - ACUTE AND CHRONIC RESPIRATORY FAILURE WITH HYPOXIA; J96.22 - ACUTE AND CHRONIC RESPIRATORY FAILURE WITH HYPERCAPNIA (4) COPD (chronic obstructive pulmonary disease) Code(s): J44.9 - CHRONIC OBSTRUCTIVE PULMONARY DISEASE, UNSPECIFIED Qualifiers: COPD type: COPD with acute exacerbation Qualified Code(s): J44.1 - Chronic obstructive pulmonary disease with (acute) exacerbation (5) CVA (cerebral infarction) Code(s): I63.9 - CEREBRAL INFARCTION, UNSPECIFIED Qualifiers: Cerebral infarction mechanism: unspecified mechanism Qualified Code(s): I63.9 - Cerebral infarction, unspecified (6) Diabetes mellitus Code(s): E11.9 - TYPE 2 DIABETES MELLITUS WITHOUT COMPLICATIONS Qualifiers: Diabetes mellitus type: type 2 Diabetes mellitus complication status: without complication (7) H/O deep venous thrombosis Code(s): Z86.718 - PERSONAL HISTORY OF OTHER VENOUS THROMBOSIS AND EMBOLISM (8) HTN (hypertension) Code(s): I10 - ESSENTIAL (PRIMARY) HYPERTENSION Qualifiers: Hypertension type: essential hypertension Qualified Code(s): I10 - Essential (primary) hypertension (9) Hyperlipidemia Code(s): E78.5 - HYPERLIPIDEMIA, UNSPECIFIED Qualifiers: Hyperlipidemia type: pure hypercholesterolemia Qualified Code(s): E78.00 - Pure hypercholesterolemia, unspecified; E78.0 - Pure hypercholesterolemia (10) PAF (paroxysmal atrial fibrillation) Code(s): I48.0 - PAROXYSMAL ATRIAL FIBRILLATION (11) Pulmonary hypertension Code(s): I27.2 - OTHER SECONDARY PULMONARY HYPERTENSION * DO NOT USE * (12) Subtherapeutic international normalized ratio (INR) Code(s): R79.1 - ABNORMAL COAGULATION PROFILE (13) [id number] kidney injury Code(s): N17.9 - ACUTE KIDNEY FAILURE, UNSPECIFIED; N18.9 - CHRONIC KIDNEY DISEASE, UNSPECIFIED Qualifiers: Acute renal failure type: unspecified Assessment/Plan 1. Acute on chronic hypercapneic respiratory failure referable to COPD exacerbation 2. Acute on chronic class I-II NYHA classification LV diastolic failure with severe pulmonary HTN 3. CAD angina pectoris 4. PAF currently sinus rhythm with subtherapeutic INR 5. HTN 6. NIDDM 7. Hypercholesterolemia 8. History of CVA with right residual deficit 9. History of Seizure disorder 10. Acute on chronic kidney disease 11. History of GI bleed 12. History of DVT post IVC filter 13. Chest pain syndrome, atypical for angina pectoris - complains of right sided pain ?musculoskeletal, doubt PTE PLAN: 1. Decrease Sotalol 40 qd as HR tolerates 2. Continue Norvasc 5 qd 3. Change Lasix 40 po qd with close monitoring of renal function 4. Continue Coumadin as per INR maintaining INR between 2-3. 5. Continue Lipitor 20 qhs 6. IV steroids taper with GI protection, bronchodilators, O2 to maintain saO2>90 %, BiPAP as needed
[2017-05-10] MEDS: SOTALOL HCL 80 MG TABLET (FP) PO SCH (10:30)
[2017-05-10] MEDS: CITALOPRAM HYDROBROMIDE 10 MG TABLET (FP) PO SCH (10:31)
[2017-05-10] MEDS: BACLOFEN 10 MG TABLET (FP) PO SCH ×2 (10:32→21:43)
[2017-05-10] MEDS: FUROSEMIDE 40 MG TABLET (FP) PO SCH (10:32)
[2017-05-10] MEDS: GABAPENTIN 300 MG CAPSULE (FP) PO SCH ×2 (10:33→21:43)
[2017-05-10] MEDS: amLODIPine BESYLATE 5 MG TABLET (FP) PO SCH (10:33)
--- NOTE | 2017-05-10 11:57 | PN ---
Progress Note, Physician History of Present Illness: pulmonary alert,feeling better,dyspnea improving,on bipap alt with nasal cannula - Current Medication List Current Medications: Active Medications Al Hydroxide/Mg Hydroxide (Mylanta Oral Suspension -) 30 ml PO Q6HPO PRN PRN Reason: DYSPEPSIA Albuterol/Ipratropium (Duoneb -) 1 amp NEB Q6H PRN PRN Reason: SHORTNESS OF BREATH Last Admin: 05/10/17 08:23 Dose: 1 amp Amlodipine Besylate (Norvasc -) 5 mg PO DAILY [facility] Last Admin: 05/10/17 10:33 Dose: 5 mg Atorvastatin Calcium (Lipitor -) 20 mg PO HS [facility] Last Admin: 05/09/17 21:46 Dose: 20 mg Baclofen (Lioresal -) 10 mg PO BID [facility] Last Admin: 05/10/17 10:32 Dose: 10 mg Citalopram Hydrobromide (Celexa -) 10 mg PO DAILY [facility] Last Admin: 05/10/17 10:31 Dose: 10 mg Furosemide (Lasix -) 40 mg PO DAILY [facility] Last Admin: 05/10/17 10:32 Dose: 40 mg Gabapentin (Neurontin -) 300 mg PO BID [facility] Last Admin: 05/10/17 10:33 Dose: 300 mg Levetiracetam 250 mg/ (Levetiracetam 500 mg) 750 mg PO BID [facility] Last Admin: 05/10/17 10:32 Dose: 750 mg Methylprednisolone Sodium Succinate (Solu-Medrol -) 40 mg IVPUSH Q8H-IV [facility] Last Admin: 05/10/17 10:33 Dose: 40 mg Oxycodone HCl (Roxicodone -) 5 mg PO Q8H PRN PRN Reason: PAIN LEVEL 4 - 6 Last Admin: 05/10/17 04:12 Dose: 5 mg Sotalol HCl (Betapace -) 40 mg PO DAILY [facility] Last Admin: 05/10/17 10:30 Dose: 40 mg Tamsulosin HCl (Flomax -) 0.4 mg PO DAILY@0830 [facility] Last Admin: 05/10/17 08:35 Dose: 0.4 mg - Objective Vital Signs: Vital Signs Temperature 97.4 F L 05/10/17 10:00 Pulse Rate 58 L 05/10/17 10:00 Respiratory Rate 20 05/10/17 10:00 Blood Pressure 119/63 05/10/17 10:00 O2 Sat by Pulse Oximetry (%) 94 L 05/09/17 21:53 Constitutional: Yes: Well Nourished, Calm Eyes: Yes: WNL HENT: Yes: WNL Neck: Yes: WNL Cardiovascular: Yes: Pulse Irregular, S1, S2 Respiratory: Yes: Rhonchi (few rhonchi) Gastrointestinal: Yes: Normal Bowel Sounds, Soft Extremities: Yes: WNL Edema: No Labs: CBC, BMP Problem List - Problems (1) Acute on chronic diastolic (congestive) heart failure Code(s): I50.33 - ACUTE ON CHRONIC DIASTOLIC (CONGESTIVE) HEART FAILURE (2) Acute on chronic respiratory failure with hypoxia and hypercapnia Code(s): J96.21 - ACUTE AND CHRONIC RESPIRATORY FAILURE WITH HYPOXIA; J96.22 - ACUTE AND CHRONIC RESPIRATORY FAILURE WITH HYPERCAPNIA (3) Afib Code(s): I48.91 - UNSPECIFIED ATRIAL FIBRILLATION (4) BPH (benign prostatic hyperplasia) Code(s): N40.0 - BENIGN PROSTATIC HYPERPLASIA WITHOUT LOWER URINRY TRACT SYMP (5) CAD (coronary artery disease) Code(s): I25.10 - ATHSCL HEART DISEASE OF [place] CORONARY ARTERY W/O ANG PCTRS Qualifiers: Coronary Disease-Associated Artery/Lesion type: [place] artery [place] vs. transplanted heart: [place] heart Associated angina: without angina Qualified Code(s): I25.10 - Atherosclerotic heart disease of [place] coronary artery without angina pectoris (6) CHF (congestive heart failure) Code(s): I50.9 - HEART FAILURE, UNSPECIFIED Qualifiers: (7) Diabetes mellitus Code(s): E11.9 - TYPE 2 DIABETES MELLITUS WITHOUT COMPLICATIONS Qualifiers: Diabetes mellitus type: type 2 Diabetes mellitus complication status: without complication (8) H/O deep venous thrombosis Code(s): Z86.718 - PERSONAL HISTORY OF OTHER VENOUS THROMBOSIS AND EMBOLISM (9) PAF (paroxysmal atrial fibrillation) Code(s): I48.0 - PAROXYSMAL ATRIAL FIBRILLATION (10) Pulmonary hypertension Code(s): I27.2 - OTHER SECONDARY PULMONARY HYPERTENSION * DO NOT USE * Assessment/Plan ASSESSMENT AND PLAN: Acute on Chronic Hypoxic and Hypercapneic Respiratory Failure Acute on Chronic Diastolic Heart Failure Pulmonary HTN Acute on Chronic Renal Failure Acute COPD Exacerbation Atrial Fibrillation h/o DVT h/o CVA HTN Hyperlipidemia - lasix - monitor urine output, creatinine - IV medrol taper - inhaled bronchodilators standing and PRN - O2 to keep Spo2 >90% - BiPAP at night and PRN during day - nasal cannula as tolerated - rate control - anticoagulation - PO as tolerated - pt DNR/DNI DR WHITING
--- NOTE | 2017-05-10 11:59 | PN ---
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 Reviewed hx with pt again. He says he coughs while eating at NH and softer foods wouldnt help. He does not want puree. Selected Entries 05/09/17 05/09/17 05/09/17 02:00 05:47 09:00 Breakfast Lunch Supper Temperature 96.8 F L 98.0 F 98 F 05/09/17 05/09/17 05/09/17 11:11 15:00 18:00 Breakfast 75% Lunch 50% Supper Temperature 97.5 F L 98.3 F 05/09/17 05/09/17 05/10/17 19:30 21:42 02:00 Breakfast Lunch Supper 100% Temperature 98.5 F 97.1 F L 05/10/17 05/10/17 05:52 10:00 Breakfast Lunch Supper Temperature 97.6 F 97.4 F L Laboratory Tests 05/09/17 09:20 WBC 6.3 Last MBS 04/23, I rec soft mech/thin liquid and swallowing therapeutic strategies. No aspiration but impulsive intake, several bites taken before he triggered a swallow, delayed esoph emptying. Is SOB resulting in increased dysphagia or dysphagia causing SOB, or unrelated? Once less SOB, suggest mbs to include esoph to further assess present swallowing function and recommendations.
--- NOTE | 2017-05-10 15:09 | PN ---
Progress Note, Physician Chief Complaint: patient went for MBS testing gaona cath to be dc today iv steroid taper - Current Medication List Current Medications: Active Medications Al Hydroxide/Mg Hydroxide (Mylanta Oral Suspension -) 30 ml PO Q6HPO PRN PRN Reason: DYSPEPSIA Albuterol/Ipratropium (Duoneb -) 1 amp NEB Q6H PRN PRN Reason: SHORTNESS OF BREATH Last Admin: 05/10/17 13:00 Dose: 1 amp Amlodipine Besylate (Norvasc -) 5 mg PO DAILY [facility] Last Admin: 05/10/17 10:33 Dose: 5 mg Atorvastatin Calcium (Lipitor -) 20 mg PO HS [facility] Last Admin: 05/09/17 21:46 Dose: 20 mg Baclofen (Lioresal -) 10 mg PO BID [facility] Last Admin: 05/10/17 10:32 Dose: 10 mg Citalopram Hydrobromide (Celexa -) 10 mg PO DAILY [facility] Last Admin: 05/10/17 10:31 Dose: 10 mg Furosemide (Lasix -) 40 mg PO DAILY [facility] Last Admin: 05/10/17 10:32 Dose: 40 mg Gabapentin (Neurontin -) 300 mg PO BID [facility] Last Admin: 05/10/17 10:33 Dose: 300 mg Levetiracetam 250 mg/ (Levetiracetam 500 mg) 750 mg PO BID [facility] Last Admin: 05/10/17 10:32 Dose: 750 mg Methylprednisolone Sodium Succinate (Solu-Medrol -) 40 mg IVPUSH BID [facility] Last Admin: 05/10/17 12:41 Dose: 40 mg Oxycodone HCl (Roxicodone -) 5 mg PO Q8H PRN PRN Reason: PAIN LEVEL 4 - 6 Last Admin: 05/10/17 04:12 Dose: 5 mg Sotalol HCl (Betapace -) 40 mg PO DAILY [facility] Last Admin: 05/10/17 10:30 Dose: 40 mg Tamsulosin HCl (Flomax -) 0.4 mg PO DAILY@0830 [facility] Last Admin: 05/10/17 08:35 Dose: 0.4 mg - Objective Vital Signs: Vital Signs Temperature 97.4 F L 05/10/17 10:00 Pulse Rate 58 L 05/10/17 10:00 Respiratory Rate 20 05/10/17 10:00 Blood Pressure 119/63 05/10/17 10:00 O2 Sat by Pulse Oximetry (%) 94 L 05/09/17 21:53 Constitutional: Yes: Calm Cardiovascular: Yes: Pulse Irregular, S1, S2 Respiratory: Yes: Diminished, On Nasal O2 Gastrointestinal: Yes: Normal Bowel Sounds, Soft Edema: Yes (minimal) Neurological: Yes: Alert, Oriented Labs: CBC, BMP 05/09/17 09:20 05/09/17 09:20 INR, PTT INR 1.81 (0.82-1.09) H 05/10/17 05:35 Problem List - Problems (1) Acute on chronic respiratory failure with hypoxia and hypercapnia Assessment/Plan: bipap at night nasal oxygen steroids iv taper nebulizers Code(s): J96.21 - ACUTE AND CHRONIC RESPIRATORY FAILURE WITH HYPOXIA; J96.22 - ACUTE AND CHRONIC RESPIRATORY FAILURE WITH HYPERCAPNIA (2) Afib Assessment/Plan: coumadin dose increased trend INR sotalol Code(s): I48.91 - UNSPECIFIED ATRIAL FIBRILLATION (3) BPH (benign prostatic hyperplasia) Assessment/Plan: flomax gaona dc today Code(s): N40.0 - BENIGN PROSTATIC HYPERPLASIA WITHOUT LOWER URINRY TRACT SYMP (4) Acute on chronic diastolic (congestive) heart failure Assessment/Plan: I/O lasix iv to po lasix chest CT noted cardiomegaly trace pericardial effusion Code(s): I50.33 - ACUTE ON CHRONIC DIASTOLIC (CONGESTIVE) HEART FAILURE (5) CVA (cerebral infarction) Assessment/Plan: right sided weakness-old MBS done today bc he coughs when eating diet recommendations per dick oro Code(s): I63.9 - CEREBRAL INFARCTION, UNSPECIFIED Qualifiers: Cerebral infarction mechanism: unspecified mechanism Qualified Code(s): I63.9 - Cerebral infarction, unspecified
[2017-05-10] MEDS: WARFARIN NA 3 MG TABLET PO SCH (17:40)
[2017-05-10] MEDS: ATORVASTATIN CA 20 MG TABLET (FP) PO SCH (21:43)
[2017-05-11] MEDS: oxyCODONE HCL 5 MG TABLET PO PRN ×3 (00:12→22:25)
[2017-05-11 08:01] LABS: INR 1.79 (0.82-1.09); PROTHROMBIN TIME (PATIENT) 20.2 SEC (9.98-11.88)
[2017-05-11] MEDS ORDERED: levETIRAcetam 250 MG TABLET (FP) PO ONE ×2 (08:48→22:21)
[2017-05-11] MEDS ORDERED: levETIRAcetam 500 MG TABLET (FP) PO ONE ×2 (08:48→22:21)
[2017-05-11] MEDS: TAMSULOSIN HCL 0.4 MG CAP.ER.24H (FP) PO SCH (09:20)
[2017-05-11] MEDS: BACLOFEN 10 MG TABLET (FP) PO SCH ×2 (09:20→22:25)
[2017-05-11] MEDS: GABAPENTIN 300 MG CAPSULE (FP) PO SCH ×2 (09:21→22:25)
[2017-05-11] MEDS: amLODIPine BESYLATE 5 MG TABLET (FP) PO SCH (09:21)
[2017-05-11] MEDS: CITALOPRAM HYDROBROMIDE 10 MG TABLET (FP) PO SCH (09:21)
[2017-05-11] MEDS: FUROSEMIDE 40 MG TABLET (FP) PO SCH (09:21)
[2017-05-11] MEDS: methylPREDNISolone NA SUCC 40 MG/1 ML VIAL IVPUSH SCH ×2 (09:21→22:32)
[2017-05-11] MEDS: SOTALOL HCL 80 MG TABLET (FP) PO SCH (09:45)
--- NOTE | 2017-05-11 10:36 | PN ---
Progress Note (short form) - Note Progress Note: Chief Complaint: Events noted, notes reviewed, continues to report persistent dyspnea, denies any chest pain, complaining of bilateral foot discomfort, asymptomatic sinus bradycardia persists History of Present Illness: Seen and examined on telemetry. Events noted, notes reviewed, continues to report persistent dyspnea, denies any chest pain, complaining of bilateral foot discomfort, asymptomatic sinus bradycardia persists Echocardiography dated 06/22/2015 revealed Normal LV size and function, moderate Bi-atrial enlargement, mod TR, mild MR and AR with RVSP of > 60 mmHg - Current Medication List Current Medications Al Hydroxide/Mg Hydroxide (Mylanta Oral Suspension -) 30 ml PO Q6HPO PRN PRN Reason: DYSPEPSIA Albuterol/Ipratropium (Duoneb -) 1 amp NEB Q6H PRN PRN Reason: SHORTNESS OF BREATH Last Admin: 05/10/17 20:58 Dose: 1 amp Amlodipine Besylate (Norvasc -) 5 mg PO DAILY [facility] Last Admin: 05/11/17 09:21 Dose: 5 mg Atorvastatin Calcium (Lipitor -) 20 mg PO HS [facility] Last Admin: 05/10/17 21:43 Dose: 20 mg Baclofen (Lioresal -) 10 mg PO BID [facility] Last Admin: 05/11/17 09:20 Dose: 10 mg Citalopram Hydrobromide (Celexa -) 10 mg PO DAILY [facility] Last Admin: 05/11/17 09:21 Dose: 10 mg Furosemide (Lasix -) 40 mg PO DAILY [facility] Last Admin: 05/11/17 09:21 Dose: 40 mg Gabapentin (Neurontin -) 300 mg PO BID [facility] Last Admin: 05/11/17 09:21 Dose: 300 mg Levetiracetam 250 mg/ (Levetiracetam 500 mg) 750 mg PO BID [facility] Last Admin: 05/11/17 09:20 Dose: 750 mg Methylprednisolone Sodium Succinate (Solu-Medrol -) 40 mg IVPUSH BID [facility] Last Admin: 05/11/17 09:21 Dose: 40 mg Oxycodone HCl (Roxicodone -) 5 mg PO Q8H PRN PRN Reason: PAIN LEVEL 4 - 6 Last Admin: 05/11/17 09:44 Dose: 5 mg Sotalol HCl (Betapace -) 40 mg PO DAILY [facility] Last Admin: 05/11/17 09:45 Dose: Not Given Tamsulosin HCl (Flomax -) 0.4 mg PO DAILY@0830 [facility] Last Admin: 05/11/17 09:20 Dose: 0.4 mg Warfarin Sodium (Coumadin -) 6 mg PO DAILY@1800 [facility] Last Admin: 05/10/17 17:40 Dose: 6 mg Review of Systems Constitutional: denies: Chills or Fever Cardiovascular: as noted above Respiratory: denies: Cough or Sputum Production Gastrointestinal: denies: Nausea, Vomiting, Diarrhea, Constipation or Abdominal Pain Genitourinary: denies: Dysuria Musculoskeletal: denies: Joint Pain but reports Bilateral Foot Discomfort Neurological: denies: Dizziness or Headache - Objective Vital Signs: Last Vital Signs Temp Pulse Resp BP Pulse Ox 98.4 F 49 L 20 101/59 100 05/11/17 05:00 05/11/17 05:00 05/11/17 05:00 05/11/17 05:00 05/11/17 08:20 Intake & Output 05/08/17 05/09/17 05/10/17 05/11/17 23:59 23:59 23:59 23:59 Intake Total 448 374 7999 Output Total 2450 2200 2350 320 Balance -1760 -2025 -1300 -320 Weight 215 lb 3.2 oz 211 lb 12.8 oz 211 lb 9.6 oz Constitutional: No Distress, Calm Neck: Supple Negative JVD No Bruit Respiratory: Diminished Breath Sounds at the Bases Cardiovascular: S1 S2 Regular Rate and Rhythm Gastrointestinal: Soft Benign Normal Bowel Sounds Ext: No Edema Labs: CBC, BMP 05/09/17 09:20 05/09/17 09:20 INR, PTT INR 1.79 (0.82-1.09) H 05/11/17 05:35 Assessment/Plan ASSESSMENT: 1. Acute on chronic hypercapneic respiratory failure referable to COPD exacerbation, resolving and 2. Acute on chronic class I-II NYHA classification LV diastolic failure with severe pulmonary HTN, resolving 3. CAD angina pectoris 4. PAF currently sinus rhythm with sub-therapeutic INR 5. HTN 6. NIDDM 7. Hypercholesterolemia 8. History of CVA with right residual deficit 9. History of Seizure disorder 10. Acute on chronic kidney disease 11. History of GI bleed 12. History of DVT post IVC filter 13. Anemia PLAN: 1. Continue Betapace at the current dosage with caution considering the above noted bradycardia 2. Continue Norvasc 2. Continue Lasix, with close monitoring of renal function 4. Continue Coumadin as per INR maintaining INR between 2-3 5. Continue Lipitor 6. Steroids and Bronchodilators as per pulmonary team Pillo Esquivel M.D.
--- NOTE | 2017-05-11 12:46 | PN ---
Progress Note (short form) - Note Progress Note: PULMONARY Breathing better. On/off BiPAP. Denies cough or wheezing. Last Vital Signs Temp Pulse Resp BP Pulse Ox 98.4 F 49 L 20 101/59 96 05/11/17 05:00 05/11/17 05:00 05/11/17 05:00 05/11/17 05:00 05/11/17 11:39 Intake & Output 05/08/17 05/09/17 05/10/17 05/11/17 23:59 23:59 23:59 23:59 Intake Total 359 238 8564 Output Total 2450 2200 2350 320 Balance -1760 -2025 -1300 -320 Weight 97.613 kg 96.071 kg 95.98 kg Gen: less tachypneic Heart: RRR Lung: scattered rhonchi Abd: soft, nontender Ext: less edema CBC, BMP 05/09/17 09:20 05/09/17 09:20 Active Medications Al Hydroxide/Mg Hydroxide (Mylanta Oral Suspension -) 30 ml PO Q6HPO PRN PRN Reason: DYSPEPSIA Albuterol/Ipratropium (Duoneb -) 1 amp NEB Q6H PRN PRN Reason: SHORTNESS OF BREATH Last Admin: 05/10/17 20:58 Dose: 1 amp Amlodipine Besylate (Norvasc -) 5 mg PO DAILY [facility] Last Admin: 05/11/17 09:21 Dose: 5 mg Atorvastatin Calcium (Lipitor -) 20 mg PO HS [facility] Last Admin: 05/10/17 21:43 Dose: 20 mg Baclofen (Lioresal -) 10 mg PO BID [facility] Last Admin: 05/11/17 09:20 Dose: 10 mg Citalopram Hydrobromide (Celexa -) 10 mg PO DAILY [facility] Last Admin: 05/11/17 09:21 Dose: 10 mg Furosemide (Lasix -) 40 mg PO DAILY [facility] Last Admin: 05/11/17 09:21 Dose: 40 mg Gabapentin (Neurontin -) 300 mg PO BID [facility] Last Admin: 05/11/17 09:21 Dose: 300 mg Levetiracetam 250 mg/ (Levetiracetam 500 mg) 750 mg PO BID [facility] Last Admin: 05/11/17 09:20 Dose: 750 mg Methylprednisolone Sodium Succinate (Solu-Medrol -) 40 mg IVPUSH BID [facility] Last Admin: 05/11/17 09:21 Dose: 40 mg Oxycodone HCl (Roxicodone -) 5 mg PO Q8H PRN PRN Reason: PAIN LEVEL 4 - 6 Last Admin: 05/11/17 09:44 Dose: 5 mg Sotalol HCl (Betapace -) 40 mg PO DAILY [facility] Last Admin: 05/11/17 09:45 Dose: Not Given Tamsulosin HCl (Flomax -) 0.4 mg PO DAILY@0830 [facility] Last Admin: 05/11/17 09:20 Dose: 0.4 mg Warfarin Sodium (Coumadin -) 6 mg PO DAILY@1800 [facility] Last Admin: 05/10/17 17:40 Dose: 6 mg A/P Acute on Chronic Hypoxic and Hypercapneic Respiratory Failure improving Acute on Chronic Diastolic Heart Failure Pulmonary HTN Acute on Chronic Renal Failure Acute COPD Exacerbation Atrial Fibrillation h/o DVT h/o CVA HTN Hyperlipidemia - continue lasix - monitor urine output, creatinine - medrol taper, can change to PO prednisone 40mg daily if continues to improve - inhaled bronchodilators standing and PRN - O2 to keep Spo2 >90% - BiPAP at night and PRN during day - rate control - continue anticoagulation - PO as tolerated - pt DNR/DNI
--- NOTE | 2017-05-11 14:52 | PN ---
Progress Note, Physician Chief Complaint: ASLEEP COMFORTABLE THIS IS MY FIRST ENCOUNTER WITH THIS PATIENT - Current Medication List Current Medications: Active Medications Al Hydroxide/Mg Hydroxide (Mylanta Oral Suspension -) 30 ml PO Q6HPO PRN PRN Reason: DYSPEPSIA Albuterol/Ipratropium (Duoneb -) 1 amp NEB Q6H PRN PRN Reason: SHORTNESS OF BREATH Last Admin: 05/10/17 20:58 Dose: 1 amp Amlodipine Besylate (Norvasc -) 5 mg PO DAILY [facility] Last Admin: 05/11/17 09:21 Dose: 5 mg Atorvastatin Calcium (Lipitor -) 20 mg PO HS [facility] Last Admin: 05/10/17 21:43 Dose: 20 mg Baclofen (Lioresal -) 10 mg PO BID [facility] Last Admin: 05/11/17 09:20 Dose: 10 mg Citalopram Hydrobromide (Celexa -) 10 mg PO DAILY [facility] Last Admin: 05/11/17 09:21 Dose: 10 mg Furosemide (Lasix -) 40 mg PO DAILY [facility] Last Admin: 05/11/17 09:21 Dose: 40 mg Gabapentin (Neurontin -) 300 mg PO BID [facility] Last Admin: 05/11/17 09:21 Dose: 300 mg Levetiracetam 250 mg/ (Levetiracetam 500 mg) 750 mg PO BID [facility] Last Admin: 05/11/17 09:20 Dose: 750 mg Methylprednisolone Sodium Succinate (Solu-Medrol -) 40 mg IVPUSH BID [facility] Last Admin: 05/11/17 09:21 Dose: 40 mg Oxycodone HCl (Roxicodone -) 5 mg PO Q8H PRN PRN Reason: PAIN LEVEL 4 - 6 Last Admin: 05/11/17 09:44 Dose: 5 mg Sotalol HCl (Betapace -) 40 mg PO DAILY [facility] Last Admin: 05/11/17 09:45 Dose: Not Given Tamsulosin HCl (Flomax -) 0.4 mg PO DAILY@0830 [facility] Last Admin: 05/11/17 09:20 Dose: 0.4 mg Warfarin Sodium (Coumadin -) 6 mg PO DAILY@1800 [facility] Last Admin: 05/10/17 17:40 Dose: 6 mg - Objective Vital Signs: Vital Signs Temperature 97.4 F L 05/11/17 10:00 Pulse Rate 48 L 02/03/18 10:00 Respiratory Rate 20 05/11/17 10:00 Blood Pressure 105/55 05/11/17 10:00 O2 Sat by Pulse Oximetry (%) 96 05/11/17 11:39 Constitutional: Yes: Mild Distress Eyes: Yes: WNL HENT: Yes: WNL Neck: Yes: WNL Cardiovascular: Yes: WNL, Pulse Irregular Respiratory: Yes: WNL Gastrointestinal: Yes: WNL Genitourinary: Yes: Incontinence Musculoskeletal: Yes: Muscle Weakness Extremities: Yes: WNL Edema: Yes Peripheral Pulses WNL: Yes Integumentary: Yes: WNL Wound/Incision: Yes: Clean/Dry Neurological: Yes: Pre-Existing Deficit ...Motor Strength: LLE, RLE Psychiatric: Yes: Other Labs: CBC, BMP 05/09/17 09:20 05/09/17 09:20 INR, PTT INR 1.79 (0.82-1.09) H 05/11/17 05:35 Problem List - Problems (1) [id number] kidney injury Code(s): N17.9 - ACUTE KIDNEY FAILURE, UNSPECIFIED; N18.9 - CHRONIC KIDNEY DISEASE, UNSPECIFIED Qualifiers: Acute renal failure type: unspecified (2) Shortness of breath Code(s): R06.02 - SHORTNESS OF BREATH (3) Subtherapeutic international normalized ratio (INR) Code(s): R79.1 - ABNORMAL COAGULATION PROFILE (4) Supratherapeutic INR Code(s): R79.1 - ABNORMAL COAGULATION PROFILE (5) Acute kidney failure Code(s): N17.9 - ACUTE KIDNEY FAILURE, UNSPECIFIED Qualifiers: Acute renal failure type: unspecified Qualified Code(s): N17.9 - Acute kidney failure, unspecified (6) Acute on chronic diastolic (congestive) heart failure Code(s): I50.33 - ACUTE ON CHRONIC DIASTOLIC (CONGESTIVE) HEART FAILURE (7) Afib Code(s): I48.91 - UNSPECIFIED ATRIAL FIBRILLATION (8) Cerebrovascular disease Code(s): I67.9 - CEREBROVASCULAR DISEASE, UNSPECIFIED (9) Diabetes mellitus Code(s): E11.9 - TYPE 2 DIABETES MELLITUS WITHOUT COMPLICATIONS Qualifiers: Diabetes mellitus type: type 2 Diabetes mellitus complication status: without complication (10) PAF (paroxysmal atrial fibrillation) Code(s): I48.0 - PAROXYSMAL ATRIAL FIBRILLATION Assessment/Plan MONITOR LABS INR SUB-THERAPEUTIC ADJUST COUMADIN CHECK INR TELE NO ALARMS CARDIO F/U APPRECIATED PT EVAL SEIZURE PRECAUTIONS ON KEPPRA OOB TO CHAIR FOOT CARE
[2017-05-11 15:40] LABS: INR 1.73 (0.82-1.09); PROTHROMBIN TIME (PATIENT) 19.5 SEC (9.98-11.88)
[2017-05-11 15:59] LABS: ANION GAP 3 (8-16); BLOOD UREA NITROGEN 65 mg/dL (7-18); CALCIUM 9.1 mg/dL (8.5-10.1); CHLORIDE 92 mmol/L (98-107); CO2 40 mmol/L (21-32); CREATININE 1.6 mg/dL (0.7-1.3); GLUCOSE,RANDOM 126 mg/dL (74-106); POTASSIUM 4.9 mmol/L (3.5-5.1); SODIUM 135 mmol/L (136-145)
[2017-05-11] MEDS: WARFARIN NA 3 MG TABLET PO SCH (20:17)
[2017-05-11] MEDS: ATORVASTATIN CA 20 MG TABLET (FP) PO SCH (22:25)
[2017-05-12] MEDS ORDERED: levETIRAcetam 500 MG TABLET (FP) PO ONE ×2 (08:02→22:26)
[2017-05-12] MEDS ORDERED: levETIRAcetam 250 MG TABLET (FP) PO ONE ×2 (08:02→22:26)
[2017-05-12] MEDS: TAMSULOSIN HCL 0.4 MG CAP.ER.24H (FP) PO SCH (08:18)
--- NOTE | 2017-05-12 09:18 | PN ---
Progress Note (short form) - Note Progress Note: Chief Complaint: Events noted, notes reviewed, continues to report persistent dyspnea although improving, denies any chest pain, complaining of persistent bilateral foot discomfort, asymptomatic sinus bradycardia persists History of Present Illness: Seen and examined on telemetry. Events noted, notes reviewed, continues to report persistent dyspnea although improving, denies any chest pain, complaining of persistent bilateral foot discomfort, asymptomatic sinus bradycardia persists Echocardiography dated 06/22/2015 revealed Normal LV size and function, moderate Bi-atrial enlargement, mod TR, mild MR and AR with RVSP of > 60 mmHg - Current Medication List Current Medications Al Hydroxide/Mg Hydroxide (Mylanta Oral Suspension -) 30 ml PO Q6HPO PRN PRN Reason: DYSPEPSIA Albuterol/Ipratropium (Duoneb -) 1 amp NEB Q6H PRN PRN Reason: SHORTNESS OF BREATH Last Admin: 05/10/17 20:58 Dose: 1 amp Amlodipine Besylate (Norvasc -) 5 mg PO DAILY [facility] Last Admin: 05/11/17 09:21 Dose: 5 mg Atorvastatin Calcium (Lipitor -) 20 mg PO HS [facility] Last Admin: 05/11/17 22:25 Dose: 20 mg Baclofen (Lioresal -) 10 mg PO BID [facility] Last Admin: 05/11/17 22:25 Dose: 10 mg Citalopram Hydrobromide (Celexa -) 10 mg PO DAILY [facility] Last Admin: 05/11/17 09:21 Dose: 10 mg Furosemide (Lasix -) 40 mg PO DAILY [facility] Last Admin: 05/11/17 09:21 Dose: 40 mg Gabapentin (Neurontin -) 300 mg PO BID [facility] Last Admin: 05/11/17 22:25 Dose: 300 mg Levetiracetam 250 mg/ (Levetiracetam 500 mg) 750 mg PO BID [facility] Last Admin: 05/11/17 22:25 Dose: 750 mg Methylprednisolone Sodium Succinate (Solu-Medrol -) 40 mg IVPUSH BID [facility] Last Admin: 05/11/17 22:32 Dose: 40 mg Oxycodone HCl (Roxicodone -) 5 mg PO Q8H PRN PRN Reason: PAIN LEVEL 4 - 6 Last Admin: 05/11/17 22:25 Dose: 5 mg Sotalol HCl (Betapace -) 40 mg PO DAILY [facility] Last Admin: 05/11/17 09:45 Dose: Not Given Tamsulosin HCl (Flomax -) 0.4 mg PO DAILY@0830 [facility] Last Admin: 05/12/17 08:18 Dose: 0.4 mg Warfarin Sodium (Coumadin -) 6 mg PO DAILY@1800 [facility] Last Admin: 05/11/17 20:17 Dose: 6 mg Review of Systems Constitutional: denies: Chills or Fever Cardiovascular: as noted above Respiratory: denies: Cough or Sputum Production Gastrointestinal: denies: Nausea, Vomiting, Diarrhea, Constipation or Abdominal Pain Genitourinary: denies: Dysuria Musculoskeletal: denies: Joint Pain but reports Bilateral Foot Discomfort Neurological: denies: Dizziness or Headache - Objective Vital Signs: Last Vital Signs Temp Pulse Resp BP Pulse Ox 98.0 F 54 L 22 148/79 94 L 05/12/17 07:36 05/12/17 07:36 05/12/17 07:39 05/12/17 07:36 05/12/17 07:39 Intake & Output 05/09/17 05/10/17 05/11/17 05/12/17 23:59 23:59 23:59 23:59 Intake Total 175 1050 520 380 Output Total 2200 0 2019 2449 Balance -2024 Weight 211 lb 12.8 oz 211 lb 9.6 oz 212 lb 6.4 oz Constitutional: No Distress, Calm Neck: Supple Negative JVD No Bruit Respiratory: Diminished Breath Sounds at the Bases Cardiovascular: S1 S2 Regular Rate and Rhythm Gastrointestinal: Soft Benign Normal Bowel Sounds Ext: No Edema Labs: CBC, BMP 05/09/17 09:20 05/11/17 14:50 INR, PTT INR 1.73 (0.82-1.09) H 05/11/17 14:50 Assessment/Plan ASSESSMENT: 1. Acute on chronic hypercapneic respiratory failure referable to COPD exacerbation, resolving and 2. Acute on chronic class I-II NYHA classification LV diastolic failure with severe pulmonary HTN, resolving 3. CAD angina pectoris 4. PAF currently sinus rhythm with sub-therapeutic INR 5. HTN 6. NIDDM 7. Hypercholesterolemia 8. History of CVA with right residual deficit 9. History of Seizure disorder 10. Acute on chronic kidney disease 11. History of GI bleed 12. History of DVT post IVC filter 13. Anemia PLAN: 1. Continue Betapace at the current dosage with caution considering the above noted bradycardia 2. Continue Norvasc 2. Continue Lasix, with close monitoring of renal function 4. Continue Coumadin as per INR maintaining INR between 2-3 5. Continue Lipitor 6. Steroids and Bronchodilators as per pulmonary team 7. Can be transferred to floor care from the cardiovascular point of view Pillo Esquivel M.D.
[2017-05-12] MEDS: methylPREDNISolone NA SUCC 40 MG/1 ML VIAL IVPUSH SCH (09:40)
[2017-05-12] MEDS: SOTALOL HCL 80 MG TABLET (FP) PO SCH (09:41)
[2017-05-12] MEDS: CITALOPRAM HYDROBROMIDE 10 MG TABLET (FP) PO SCH (09:41)
[2017-05-12] MEDS: GABAPENTIN 300 MG CAPSULE (FP) PO SCH ×2 (09:41→22:32)
[2017-05-12] MEDS: FUROSEMIDE 40 MG TABLET (FP) PO SCH (09:41)
[2017-05-12] MEDS: BACLOFEN 10 MG TABLET (FP) PO SCH ×2 (09:41→22:32)
[2017-05-12] MEDS: amLODIPine BESYLATE 5 MG TABLET (FP) PO SCH (09:41)
[2017-05-12] MEDS: ALBUTEROL SO4 2.5/IPRATROPIUM 0.5 INH SOL 3 ML VIAL.NEB. NEB PRN ×2 (11:35→12:55)
--- NOTE | 2017-05-12 12:28 | PN ---
Progress Note (short form) - Note Progress Note: PULMONARY States breathing better. Denies cough or wheezing. No fevers or chills. Last Vital Signs Temp Pulse Resp BP Pulse Ox 98.0 F 54 L 22 148/79 100 05/12/17 07:36 05/12/17 07:36 05/12/17 07:39 05/12/17 07:36 05/12/17 09:35 Intake & Output 05/09/17 05/10/17 05/11/17 05/12/17 23:59 23:59 23:59 23:59 Intake Total 175 1050 520 380 Output Total 2200 0 2019 2449 Balance -2024 -1299 -1499 Weight 96.071 kg 95.98 kg 96.343 kg Gen: less tachypneic Heart: RRR Lung: scattered rhonchi Abd: soft, nontender Ext: less edema CBC, BMP 05/09/17 09:20 05/11/17 14:50 Active Medications Al Hydroxide/Mg Hydroxide (Mylanta Oral Suspension -) 30 ml PO Q6HPO PRN PRN Reason: DYSPEPSIA Albuterol/Ipratropium (Duoneb -) 1 amp NEB Q6H PRN PRN Reason: SHORTNESS OF BREATH Last Admin: 05/12/17 11:35 Dose: 1 amp Amlodipine Besylate (Norvasc -) 5 mg PO DAILY [facility] Last Admin: 05/12/17 09:41 Dose: 5 mg Atorvastatin Calcium (Lipitor -) 20 mg PO [facility] Last Admin: 05/11/17 22:25 Dose: 20 mg Baclofen (Lioresal -) 10 mg PO BID [facility] Last Admin: 05/12/17 09:41 Dose: 10 mg Citalopram Hydrobromide (Celexa -) 10 mg PO DAILY [facility] Last Admin: 05/12/17 09:41 Dose: 10 mg Furosemide (Lasix -) 40 mg PO DAILY [facility] Last Admin: 05/12/17 09:41 Dose: 40 mg Gabapentin (Neurontin -) 300 mg PO BID [facility] Last Admin: 05/12/17 09:41 Dose: 300 mg Levetiracetam 250 mg/ (Levetiracetam 500 mg) 750 mg PO BID [facility] Last Admin: 05/12/17 09:40 Dose: 750 mg Methylprednisolone Sodium Succinate (Solu-Medrol -) 40 mg IVPUSH BID [facility] Last Admin: 05/12/17 09:40 Dose: 40 mg Oxycodone HCl (Roxicodone -) 5 mg PO Q8H PRN PRN Reason: PAIN LEVEL 4 - 6 Last Admin: 05/11/17 22:25 Dose: 5 mg Sotalol HCl (Betapace -) 40 mg PO DAILY [facility] Last Admin: 05/12/17 09:41 Dose: 40 mg Tamsulosin HCl (Flomax -) 0.4 mg PO DAILY@0830 [facility] Last Admin: 05/12/17 08:18 Dose: 0.4 mg Warfarin Sodium (Coumadin -) 6 mg PO DAILY@1800 [facility] Last Admin: 05/11/17 20:17 Dose: 6 mg A/P Acute on Chronic Hypoxic and Hypercapneic Respiratory Failure improving Acute on Chronic Diastolic Heart Failure Pulmonary HTN Acute on Chronic Renal Failure Acute COPD Exacerbation Atrial Fibrillation h/o DVT h/o CVA HTN Hyperlipidemia - continue lasix - monitor urine output, creatinine - will change medrol to prednisone - inhaled bronchodilators standing and PRN - O2 to keep Spo2 >90% - BiPAP at night and PRN during day - rate control - continue anticoagulation - PO as tolerated - pt DNR/DNI
--- NOTE | 2017-05-12 14:30 | PN ---
Progress Note, Physician Chief Complaint: AWAKE NAD - Current Medication List Current Medications: Active Medications Al Hydroxide/Mg Hydroxide (Mylanta Oral Suspension -) 30 ml PO Q6HPO PRN PRN Reason: DYSPEPSIA Albuterol/Ipratropium (Duoneb -) 1 amp NEB Q6H PRN PRN Reason: SHORTNESS OF BREATH Last Admin: 05/12/17 11:35 Dose: 1 amp Amlodipine Besylate (Norvasc -) 5 mg PO DAILY [facility] Last Admin: 05/12/17 09:41 Dose: 5 mg Atorvastatin Calcium (Lipitor -) 20 mg PO HS [facility] Last Admin: 05/11/17 22:25 Dose: 20 mg Baclofen (Lioresal -) 10 mg PO BID [facility] Last Admin: 05/12/17 09:41 Dose: 10 mg Citalopram Hydrobromide (Celexa -) 10 mg PO DAILY [facility] Last Admin: 05/12/17 09:41 Dose: 10 mg Furosemide (Lasix -) 40 mg PO DAILY [facility] Last Admin: 05/12/17 09:41 Dose: 40 mg Gabapentin (Neurontin -) 300 mg PO BID [facility] Last Admin: 05/12/17 09:41 Dose: 300 mg Levetiracetam 250 mg/ (Levetiracetam 500 mg) 750 mg PO BID [facility] Last Admin: 05/12/17 09:40 Dose: 750 mg Oxycodone HCl (Roxicodone -) 5 mg PO Q8H PRN PRN Reason: PAIN LEVEL 4 - 6 Last Admin: 05/11/17 22:25 Dose: 5 mg Prednisone (Deltasone -) 40 mg PO DAILY [facility] Sotalol HCl (Betapace -) 40 mg PO DAILY [facility] Last Admin: 05/12/17 09:41 Dose: 40 mg Tamsulosin HCl (Flomax -) 0.4 mg PO DAILY@0830 [facility] Last Admin: 05/12/17 08:18 Dose: 0.4 mg Warfarin Sodium (Coumadin -) 6 mg PO DAILY@1800 [facility] Last Admin: 05/11/17 20:17 Dose: 6 mg - Objective Vital Signs: Vital Signs Temperature 98.0 F 05/12/17 07:36 Pulse Rate 54 L 05/12/17 07:36 Respiratory Rate 22 05/12/17 07:39 Blood Pressure 148/79 05/12/17 07:36 O2 Sat by Pulse Oximetry (%) 100 05/12/17 09:35 Constitutional: Yes: Mild Distress Eyes: Yes: WNL HENT: Yes: WNL Neck: Yes: WNL Cardiovascular: Yes: WNL Respiratory: Yes: Hector-Gu, On Nasal O2, SOB Gastrointestinal: Yes: WNL Genitourinary: Yes: Incontinence Musculoskeletal: Yes: Muscle Weakness Edema: Yes Integumentary: Yes: WNL Wound/Incision: Yes: Clean/Dry Neurological: Yes: Confusion ...Motor Strength: LLE, RLE Psychiatric: Yes: Other Labs: CBC, BMP 05/09/17 09:20 05/11/17 14:50 INR, PTT INR 1.73 (0.82-1.09) H 05/11/17 14:50 Problem List - Problems (1) [id number] kidney injury Code(s): N17.9 - ACUTE KIDNEY FAILURE, UNSPECIFIED; N18.9 - CHRONIC KIDNEY DISEASE, UNSPECIFIED Qualifiers: Acute renal failure type: unspecified (2) Shortness of breath Code(s): R06.02 - SHORTNESS OF BREATH (3) Subtherapeutic international normalized ratio (INR) Code(s): R79.1 - ABNORMAL COAGULATION PROFILE (4) Supratherapeutic INR Code(s): R79.1 - ABNORMAL COAGULATION PROFILE (5) Acute kidney failure Code(s): N17.9 - ACUTE KIDNEY FAILURE, UNSPECIFIED Qualifiers: Acute renal failure type: unspecified Qualified Code(s): N17.9 - Acute kidney failure, unspecified (6) Acute on chronic diastolic (congestive) heart failure Code(s): I50.33 - ACUTE ON CHRONIC DIASTOLIC (CONGESTIVE) HEART FAILURE (7) Afib Code(s): I48.91 - UNSPECIFIED ATRIAL FIBRILLATION (8) Cerebrovascular disease Code(s): I67.9 - CEREBROVASCULAR DISEASE, UNSPECIFIED (9) Diabetes mellitus Code(s): E11.9 - TYPE 2 DIABETES MELLITUS WITHOUT COMPLICATIONS Qualifiers: Diabetes mellitus type: type 2 Diabetes mellitus complication status: without complication (10) PAF (paroxysmal atrial fibrillation) Code(s): I48.0 - PAROXYSMAL ATRIAL FIBRILLATION Assessment/Plan MONITOR LABS INR SUB-THERAPEUTIC ADJUST COUMADIN CHECK INR TELE NO ALARMS CARDIO F/U APPRECIATED PT EVAL SEIZURE PRECAUTIONS ON KEPPRA OOB TO CHAIR FOOT CARE
[2017-05-12 16:07] LABS: INR 1.81 (0.82-1.09); PROTHROMBIN TIME (PATIENT) 20.4 SEC (9.98-11.88)
[2017-05-12 16:15] LABS: ANION GAP 4 (8-16); BLOOD UREA NITROGEN 61 mg/dL (7-18); CALCIUM 9.5 mg/dL (8.5-10.1); CHLORIDE 91 mmol/L (98-107); CO2 40 mmol/L (21-32); CREATININE 1.5 mg/dL (0.7-1.3); GLUCOSE,RANDOM 137 mg/dL (74-106); POTASSIUM 4.9 mmol/L (3.5-5.1); SODIUM 135 mmol/L (136-145)
[2017-05-12] MEDS: oxyCODONE HCL 5 MG TABLET PO PRN (16:25)
[2017-05-12] MEDS: WARFARIN NA 3 MG TABLET PO SCH (17:27)
[2017-05-12] MEDS: ATORVASTATIN CA 20 MG TABLET (FP) PO SCH (22:32)
[2017-05-13 06:44] LABS: HEMATOCRIT 32.5 % (35.4-49); MCH 26.4 pg (25.7-33.7); MCHC 30.7 g/dl (32.0-35.9); MEAN CELL VOLUME 85.9 fl (80-96); MEAN PLT VOLUME 9.2 fl (7.5-11.1); PLATELET COUNT 209 K/MM3 (134-434); RBC 3.79 M/mm3 (4.00-5.60); WHITE BLOOD COUNT 8.1 K/mm3 (4.0-10.0)
[2017-05-13 06:52] LABS: INR 1.96 (0.82-1.09); PROTHROMBIN TIME (PATIENT) 22.1 SEC (9.98-11.88)
[2017-05-13] MEDS ORDERED: levETIRAcetam 500 MG TABLET (FP) PO ONE (08:05)
[2017-05-13] MEDS ORDERED: levETIRAcetam 250 MG TABLET (FP) PO ONE (08:05)
[2017-05-13] MEDS: TAMSULOSIN HCL 0.4 MG CAP.ER.24H (FP) PO SCH (08:18)
[2017-05-13] MEDS: GABAPENTIN 300 MG CAPSULE (FP) PO SCH (09:37)
[2017-05-13] MEDS: amLODIPine BESYLATE 5 MG TABLET (FP) PO SCH (09:37)
[2017-05-13] MEDS: FUROSEMIDE 40 MG TABLET (FP) PO SCH (09:37)
[2017-05-13] MEDS: CITALOPRAM HYDROBROMIDE 10 MG TABLET (FP) PO SCH (09:37)
[2017-05-13] MEDS: BACLOFEN 10 MG TABLET (FP) PO SCH (09:39)
[2017-05-13] MEDS: SOTALOL HCL 80 MG TABLET (FP) PO SCH (09:40)
[2017-05-13] MEDS ORDERED: predniSONE 20 MG TABLET (UD) PO SCH (10:00)
--- NOTE | 2017-05-13 10:13 | PN ---
Progress Note, Physician History of Present Illness: Sensorium improved post bipap. Sinus bradycardia, no further chest discomfort. - Current Medication List Current Medications: Active Medications Al Hydroxide/Mg Hydroxide (Mylanta Oral Suspension -) 30 ml PO Q6HPO PRN PRN Reason: DYSPEPSIA Albuterol/Ipratropium (Duoneb -) 1 amp NEB Q6H PRN PRN Reason: SHORTNESS OF BREATH Last Admin: 05/12/17 12:55 Dose: 1 amp Amlodipine Besylate (Norvasc -) 5 mg PO DAILY [facility] Last Admin: 05/13/17 09:37 Dose: 5 mg Atorvastatin Calcium (Lipitor -) 20 mg PO HS [facility] Last Admin: 05/12/17 22:32 Dose: 20 mg Baclofen (Lioresal -) 10 mg PO BID [facility] Last Admin: 05/13/17 09:39 Dose: 10 mg Citalopram Hydrobromide (Celexa -) 10 mg PO DAILY [facility] Last Admin: 05/13/17 09:37 Dose: 10 mg Furosemide (Lasix -) 40 mg PO DAILY [facility] Last Admin: 05/13/17 09:37 Dose: 40 mg Gabapentin (Neurontin -) 300 mg PO BID [facility] Last Admin: 05/13/17 09:37 Dose: 300 mg Levetiracetam 250 mg/ (Levetiracetam 500 mg) 750 mg PO BID [facility] Last Admin: 05/13/17 09:37 Dose: 750 mg Oxycodone HCl (Roxicodone -) 5 mg PO Q8H PRN PRN Reason: PAIN LEVEL 4 - 6 Last Admin: 05/12/17 16:25 Dose: 5 mg Prednisone (Deltasone -) 40 mg PO DAILY [facility] Last Admin: 05/13/17 09:37 Dose: 40 mg Sotalol HCl (Betapace -) 40 mg PO DAILY [facility] Last Admin: 05/13/17 09:40 Dose: 40 mg Tamsulosin HCl (Flomax -) 0.4 mg PO DAILY@0830 [facility] Last Admin: 05/13/17 08:18 Dose: 0.4 mg Warfarin Sodium (Coumadin -) 6 mg PO DAILY@1800 [facility] Last Admin: 05/12/17 17:27 Dose: 6 mg - Objective Vital Signs: Vital Signs Temperature 97.8 F 05/13/17 07:41 Pulse Rate 47 L 05/13/17 07:41 Respiratory Rate 20 05/13/17 07:45 Blood Pressure 123/62 05/13/17 07:41 O2 Sat by Pulse Oximetry (%) 99 05/13/17 07:45 Constitutional: Yes: No Distress, Calm Neck: Yes: Supple Cardiovascular: Yes: Bradycardia Respiratory: Yes: Regular, Diminished, On Nasal O2 Gastrointestinal: Yes: Normal Bowel Sounds, Soft Edema: No Labs: CBC, BMP 05/13/17 06:20 05/12/17 15:05 INR, PTT INR 1.96 (0.82-1.09) H 05/13/17 06:20 - ....Imaging EKG: Report Reviewed (Tele: SR no PAF) Problem List - Problems (1) Shortness of breath Code(s): R06.02 - SHORTNESS OF BREATH (2) Acute on chronic diastolic (congestive) heart failure Code(s): I50.33 - ACUTE ON CHRONIC DIASTOLIC (CONGESTIVE) HEART FAILURE (3) Acute on chronic respiratory failure with hypoxia and hypercapnia Code(s): J96.21 - ACUTE AND CHRONIC RESPIRATORY FAILURE WITH HYPOXIA; J96.22 - ACUTE AND CHRONIC RESPIRATORY FAILURE WITH HYPERCAPNIA (4) COPD (chronic obstructive pulmonary disease) Code(s): J44.9 - CHRONIC OBSTRUCTIVE PULMONARY DISEASE, UNSPECIFIED Qualifiers: COPD type: COPD with acute exacerbation Qualified Code(s): J44.1 - Chronic obstructive pulmonary disease with (acute) exacerbation (5) CVA (cerebral infarction) Code(s): I63.9 - CEREBRAL INFARCTION, UNSPECIFIED Qualifiers: Cerebral infarction mechanism: unspecified mechanism Qualified Code(s): I63.9 - Cerebral infarction, unspecified (6) Diabetes mellitus Code(s): E11.9 - TYPE 2 DIABETES MELLITUS WITHOUT COMPLICATIONS Qualifiers: Diabetes mellitus type: type 2 Diabetes mellitus complication status: without complication (7) H/O deep venous thrombosis Code(s): Z86.718 - PERSONAL HISTORY OF OTHER VENOUS THROMBOSIS AND EMBOLISM (8) HTN (hypertension) Code(s): I10 - ESSENTIAL (PRIMARY) HYPERTENSION Qualifiers: Hypertension type: essential hypertension Qualified Code(s): I10 - Essential (primary) hypertension (9) Hyperlipidemia Code(s): E78.5 - HYPERLIPIDEMIA, UNSPECIFIED Qualifiers: Hyperlipidemia type: pure hypercholesterolemia Qualified Code(s): E78.00 - Pure hypercholesterolemia, unspecified; E78.0 - Pure hypercholesterolemia (10) PAF (paroxysmal atrial fibrillation) Code(s): I48.0 - PAROXYSMAL ATRIAL FIBRILLATION (11) Pulmonary hypertension Code(s): I27.2 - OTHER SECONDARY PULMONARY HYPERTENSION * DO NOT USE * (12) Subtherapeutic international normalized ratio (INR) Code(s): R79.1 - ABNORMAL COAGULATION PROFILE (13) [id number] kidney injury Code(s): N17.9 - ACUTE KIDNEY FAILURE, UNSPECIFIED; N18.9 - CHRONIC KIDNEY DISEASE, UNSPECIFIED Qualifiers: Acute renal failure type: unspecified Assessment/Plan 1. Acute on chronic hypercapneic respiratory failure referable to COPD exacerbation, resolving 2. Acute on chronic class I-II NYHA classification LV diastolic failure with severe pulmonary HTN resolving 3. CAD angina pectoris 4. PAF currently sinus rhythm with therapeutic INR 5. HTN 6. NIDDM 7. Hypercholesterolemia 8. History of CVA with right residual deficit 9. History of Seizure disorder 10. Acute on chronic kidney disease 11. History of GI bleed 12. History of DVT post IVC filter 13. Chest pain syndrome, atypical for angina pectoris - complains of right sided pain ?musculoskeletal, doubt PTE PLAN: 1. Continue Sotalol 40 qd as HR tolerates 2. Continue Norvasc 5 qd 3. Continue Lasix 40 po qd with close monitoring of renal function 4. Continue Coumadin as per INR maintaining INR between 2-3. 5. Continue Lipitor 20 qhs 6. Oral steroid taper with GI protection, bronchodilators, O2 to maintain saO2> 90%, BiPAP as needed 7. Can be transferred to floor care from the cardiovascular point of view
[2017-05-13] MEDS: ALBUTEROL SO4 2.5/IPRATROPIUM 0.5 INH SOL 3 ML VIAL.NEB. NEB PRN (11:10)
--- NOTE | 2017-05-13 11:22 | PN ---
Progress Note, Physician History of Present Illness: PULMONARY ALERT,NO DISTRESS ON NASAL O2,-TACHYPNEA,-DYSPNEA - Current Medication List Current Medications: Active Medications Al Hydroxide/Mg Hydroxide (Mylanta Oral Suspension -) 30 ml PO Q6HPO PRN PRN Reason: DYSPEPSIA Albuterol/Ipratropium (Duoneb -) 1 amp NEB Q6H PRN PRN Reason: SHORTNESS OF BREATH Last Admin: 05/12/17 12:55 Dose: 1 amp Amlodipine Besylate (Norvasc -) 5 mg PO DAILY [facility] Last Admin: 05/13/17 09:37 Dose: 5 mg Atorvastatin Calcium (Lipitor -) 20 mg PO HS [facility] Last Admin: 05/12/17 22:32 Dose: 20 mg Baclofen (Lioresal -) 10 mg PO BID [facility] Last Admin: 05/13/17 09:39 Dose: 10 mg Citalopram Hydrobromide (Celexa -) 10 mg PO DAILY [facility] Last Admin: 05/13/17 09:37 Dose: 10 mg Furosemide (Lasix -) 40 mg PO DAILY [facility] Last Admin: 05/13/17 09:37 Dose: 40 mg Gabapentin (Neurontin -) 300 mg PO BID [facility] Last Admin: 05/13/17 09:37 Dose: 300 mg Levetiracetam 250 mg/ (Levetiracetam 500 mg) 750 mg PO BID [facility] Last Admin: 05/13/17 09:37 Dose: 750 mg Oxycodone HCl (Roxicodone -) 5 mg PO Q8H PRN PRN Reason: PAIN LEVEL 4 - 6 Last Admin: 05/12/17 16:25 Dose: 5 mg Prednisone (Deltasone -) 40 mg PO DAILY [facility] Last Admin: 05/13/17 09:37 Dose: 40 mg Sotalol HCl (Betapace -) 40 mg PO DAILY [facility] Last Admin: 05/13/17 09:40 Dose: 40 mg Tamsulosin HCl (Flomax -) 0.4 mg PO DAILY@0830 [facility] Last Admin: 05/13/17 08:18 Dose: 0.4 mg Warfarin Sodium (Coumadin -) 6 mg PO DAILY@1800 [facility] Last Admin: 05/12/17 17:27 Dose: 6 mg - Objective Vital Signs: Vital Signs Temperature 97.8 F 05/13/17 07:41 Pulse Rate 47 L 05/13/17 07:41 Respiratory Rate 20 05/13/17 07:45 Blood Pressure 123/62 05/13/17 07:41 O2 Sat by Pulse Oximetry (%) 99 05/13/17 07:45 Constitutional: Yes: Well Nourished, Calm Eyes: Yes: WNL HENT: Yes: WNL Neck: Yes: WNL Cardiovascular: Yes: Pulse Irregular, S1, S2 Respiratory: Yes: Rhonchi (FEW RHONCHI) Gastrointestinal: Yes: Normal Bowel Sounds, Soft Extremities: Yes: WNL Edema: No Labs: CBC, BMP 05/13/17 06:20 INR, PTT INR 1.96 (0.82-1.09) H 05/13/17 06:20 Problem List - Problems (1) Acute on chronic diastolic (congestive) heart failure Code(s): I50.33 - ACUTE ON CHRONIC DIASTOLIC (CONGESTIVE) HEART FAILURE (2) Acute on chronic respiratory failure with hypoxia and hypercapnia Code(s): J96.21 - ACUTE AND CHRONIC RESPIRATORY FAILURE WITH HYPOXIA; J96.22 - ACUTE AND CHRONIC RESPIRATORY FAILURE WITH HYPERCAPNIA (3) Afib Code(s): I48.91 - UNSPECIFIED ATRIAL FIBRILLATION (4) BPH (benign prostatic hyperplasia) Code(s): N40.0 - BENIGN PROSTATIC HYPERPLASIA WITHOUT LOWER URINRY TRACT SYMP (5) CAD (coronary artery disease) Code(s): I25.10 - ATHSCL HEART DISEASE OF [place] CORONARY ARTERY W/O ANG PCTRS Qualifiers: Coronary Disease-Associated Artery/Lesion type: [place] artery [place] vs. transplanted heart: [place] heart Associated angina: without angina Qualified Code(s): I25.10 - Atherosclerotic heart disease of [place] coronary artery without angina pectoris (6) CHF (congestive heart failure) Code(s): I50.9 - HEART FAILURE, UNSPECIFIED Qualifiers: (7) Diabetes mellitus Code(s): E11.9 - TYPE 2 DIABETES MELLITUS WITHOUT COMPLICATIONS Qualifiers: Diabetes mellitus type: type 2 Diabetes mellitus complication status: without complication (8) H/O deep venous thrombosis Code(s): Z86.718 - PERSONAL HISTORY OF OTHER VENOUS THROMBOSIS AND EMBOLISM (9) PAF (paroxysmal atrial fibrillation) Code(s): I48.0 - PAROXYSMAL ATRIAL FIBRILLATION (10) Pulmonary hypertension Code(s): I27.2 - OTHER SECONDARY PULMONARY HYPERTENSION * DO NOT USE * Assessment/Plan ASSESSMENT AND PLAN: Acute on Chronic Hypoxic and Hypercapneic Respiratory Failure improving Acute on Chronic Diastolic Heart Failure improving Pulmonary HTN Acute on Chronic Renal Failure Acute COPD Exacerbation Atrial Fibrillation h/o DVT h/o CVA HTN Hyperlipidemia - lasix - monitor urine output, creatinine - prednisone - inhaled bronchodilators standing and PRN - O2 to keep Spo2 >90% - BiPAP at night and PRN during day - nasal cannula as tolerated - rate control - anticoagulation - PO as tolerated - pt DNR/DNI DR WHITING
--- NOTE | 2017-05-13 12:48 | PN ---
Progress Note, CARE TRANSITION MGR - Note Progress Note: Selected Entries 05/12/17 05/12/17 05/12/17 02:00 07:36 11:25 Breakfast 100% Lunch Supper Temperature 97.9 F 98.0 F 05/12/17 05/12/17 05/12/17 14:40 14:44 17:00 Breakfast Lunch 100% Supper Temperature 98.2 F 98.0 F 05/12/17 05/12/17 05/13/17 19:16 22:00 02:00 Breakfast Lunch Supper 50% Temperature 98.1 F 97.5 F L 05/13/17 05/13/17 06:00 07:41 Breakfast Lunch Supper Temperature 97.8 F 97.8 F Laboratory Tests 05/13/17 06:20 WBC 8.1 MBS results reviewed with staff and pt.Pt reports not coughing with present diet , using compensatory strategies. Good appetite.
--- NOTE | 2017-05-13 14:21 | DS ---
Physical Examination Vital Signs: Vital Signs Temperature 97.8 F 05/13/17 07:41 Pulse Rate 47 L 05/13/17 07:41 Respiratory Rate 20 05/13/17 07:45 Blood Pressure 123/62 05/13/17 07:41 O2 Sat by Pulse Oximetry (%) 97 05/13/17 10:15 Constitutional: Yes: Mild Distress Eyes: Yes: WNL HENT: Yes: WNL Neck: Yes: WNL Cardiovascular: Yes: Bradycardia Respiratory: Yes: On Nasal O2 Gastrointestinal: Yes: WNL Renal/: Yes: Incontinence Musculoskeletal: Yes: Muscle Weakness Extremities: Yes: WNL Edema: No Peripheral Pulses WNL: Yes Integumentary: Yes: WNL Wound/Incision: Yes: Clean/Dry Neurological: Yes: Pre-Existing Deficit ...Motor Strength: LLE, RLE Psychiatric: Yes: Other Labs: CBC, BMP 05/13/17 06:20 05/12/17 15:05 Discharge Summary Reason For Visit: ACUTE ON CHRONIC RESPIRATORY FAILURE Current Active Problems [id number] kidney injury (Acute) Shortness of breath (Acute) Subtherapeutic international normalized ratio (INR) (Acute) Supratherapeutic INR (Acute) Procedures: Principal: CHEST CT Hospital Course: ADMITED FOR URI, ARRYTHMIA BRADYCARDIA, MONITORED WILL F/U A SOUT PATIENT TAPER PREDNISONE Condition: Good - Instructions Diet, Activity, Other Instructions: TAPER OFF PREDNISONE F/U EKG BRADYCARDIA ON SOTOLOL Referrals: Kimani Hein MD [Primary Care Provider] - Disposition: NURSING HOME FACILITY - Home Medications Comprehensive Discharge Medication List: Ambulatory Orders Acetaminophen 650 mg PO Q8H PRN 05/05/17 [facility] [Tudorza Pressair] 1 inh IH Q12H 05/05/17 Albuterol 0.083% Nebulizer Lyubov [Ventolin 0.083% Nebulizer Soln -] 1 neb NEB Q6H 05/05/17 Amlodipine Besylate 5 mg PO DAILY 05/05/17 Aspirin [Aspirin EC] 81 mg PO DAILY 05/05/17 Atorvastatin Ca [Lipitor] 20 mg PO HS 05/05/17 Baclofen 10 mg PO BID 05/05/17 Chlorpheniramine/Dextromethorp [Robitussin Long-Acting Liq] 10 ml PO Q6H PRN Citalopram Hydrobromide [Celexa -] 10 mg PO DAILY 05/05/17 Diclofenac Sodium [Voltaren] 2 gm TP QID PRN 05/05/17 Docusate Sodium 300 mg PO HS 05/05/17 Ergocalciferol [Drisdol Oral Solution -] 50,000 units PO FR 05/05/17 Fluticasone Propionate [Flovent Hfa] 1 inh IH BID 05/05/17 Folic Acid 1 mg PO DAILY 05/05/17 Furosemide [Lasix -] 40 mg PO DAILY 05/05/17 Gabapentin 300 mg PO BID 05/05/17 Levetiracetam 750 mg PO BID 05/05/17 Levofloxacin [Levaquin] 500 mg PO DAILY 05/05/17 Mineral Oil/Petrolatum,White [Artificial Tears Eye Ointment] 1 drop OU BID 05/05 Oxycodone HCl 5 mg PO Q8H PRN 05/05/17 Polyethylene Glycol 3350 [Clearlax] 17 gm PO DAILY 05/05/17 Prednisone 5 mg PO DAILY 05/05/17 Ranitidine HCl [Zantac] 150 mg PO HS 05/05/17 Sodium Chloride [Saline Mist] 2 spray NS Q6H 05/05/17 Sotalol HCl [Betapace -] 80 mg PO DAILY 05/05/17 Tamsulosin HCl 0.4 mg PO DAILY 05/05/17 Thiamine HCl [Vitamin B1] 100 mg PO DAILY 05/05/17 Warfarin Na [Coumadin] 7 mg PO DAILY 05/05/17
[2017-05-13 14:35] VITALS: BP 111/54; PULSE 64; TEMP 97.6
[2017-05-13 16:58] LABS: INR 1.75 (0.82-1.09); PROTHROMBIN TIME (PATIENT) 19.8 SEC (9.98-11.88)
[2017-05-13 17:16] LABS: ANION GAP 3 (8-16); BLOOD UREA NITROGEN 49 mg/dL (7-18); CALCIUM 8.8 mg/dL (8.5-10.1); CHLORIDE 94 mmol/L (98-107); CO2 40 mmol/L (21-32); CREATININE 1.4 mg/dL (0.7-1.3); GLUCOSE,RANDOM 130 mg/dL (74-106); POTASSIUM 4.5 mmol/L (3.5-5.1); SODIUM 137 mmol/L (136-145)
== END 2017-05-13 17:41 | DRG 189 ==
LOC: JER 10:34 → JERBED 13:19 → JICU 16:38 → J4W 05-06 15:05
PROVIDERS: ADMIT Family Medicine; ATTEND Family Medicine
PROC: 5A09557 Assistance with Respiratory Ventilation, Greater than 96 Consecutive Hours, Continuous Positive Airway Pressure (ICD-10-PCS; principal; 2017-05-05)
DX: J96.01 Acute respiratory failure with hypoxia (principal); I50.33 Acute on chronic diastolic (congestive) heart failure; G40.89 Other seizures; J44.1 Chronic obstructive pulmonary disease with (acute) exacerbation; I69.959 Hemiplegia and hemiparesis following unspecified cerebrovascular disease affecting unspecified side; N17.9 Acute kidney failure, unspecified; I25.110 Atherosclerotic heart disease of native coronary artery with unstable angina pectoris; I13.0 Hypertensive heart and chronic kidney disease with heart failure and stage 1 through stage 4 chronic kidney disease, or unspecified chronic kidney disease; G40.802 Other epilepsy, not intractable, without status epilepticus; J96.02 Acute respiratory failure with hypercapnia; I73.89 Other specified peripheral vascular diseases; E78.00 Pure hypercholesterolemia, unspecified; D64.9 Anemia, unspecified; I25.10 Atherosclerotic heart disease of native coronary artery without angina pectoris; K21.9 Gastro-esophageal reflux disease without esophagitis; R00.1 Bradycardia, unspecified; R91.1 Solitary pulmonary nodule; I27.20 Pulmonary hypertension, unspecified; N40.0 Benign prostatic hyperplasia without lower urinary tract symptoms; R79.1 Abnormal coagulation profile; I48.0 Paroxysmal atrial fibrillation; E11.22 Type 2 diabetes mellitus with diabetic chronic kidney disease; N18.9 Chronic kidney disease, unspecified; Z86.718 Personal history of other venous thrombosis and embolism; Z99.81 Dependence on supplemental oxygen; Z66 Do not resuscitate
CPT/HCPCS: 36415; 36600; 71045-TC; 71250-TC; 74230-TC-FY; 80048; 80053; 81003; 81015; 82550; 82728; 82803; 83540; 83550; 83605; 83735; 83880; 84100; 84443; 84484; 85025; 85027; 85610; 85730; 86850; 86900; 86901; 87040; 87086; 87804; 92611-GN; 93005; 93010; 94640; 94660; 99284-25; J0475